=== PATIENT | female | born 1950 | race Caucasian/White ===

== ENCOUNTER 2019-05-24 00:21 | Outpatient (CLI) | payer OTHER, SELFPAY ==
--- NOTE | 2019-05-24 11:53 | DI.MAMMO_ITS ---
EXAM: MG MAMMO SCREENING CLINICAL HISTORY: SCREENING, Z12.39, FAMILY H/O BREAST CA. TECHNIQUE: Bilateral full field digital CC and MLO mammographic images were obtained with 3D tomosy nthesis and utilizing computer aided detection (CAD). COMPARISON: Comparison is made with previous examinations. FINDINGS: The breast tissue is of moderate radiodensity. There is no evidence of a dominant mass or suspicious calcification. There has been no significant interval change when compared with previous images. IMPRESSION: No evidence of malignancy, category 1, annual screening mammography is recommended. Breast density, c ategory B. BI-RADS Cat 1 - Negative. Breast Density - Category B - Scattered areas of fibroglandular density.
== END 2019-05-24 00:41 ==
PROVIDERS: PCP Nurse Practitioner Family; Visit Provider Nurse Practitioner Family
DX: Z12.31 Encounter for screening mammogram for malignant neoplasm of breast (principal); Z80.3 Family history of malignant neoplasm of breast
CPT/HCPCS: 77063; 77067

== ENCOUNTER 2019-05-25 12:41 | Outpatient (REF) | payer OTHER, SELFPAY ==
[2019-05-25 18:53] LABS: Anion Gap 7.5 mmol/L (3-11); BUN 19 mg/dL (7-18); CO2 29.5 mmol/L (21.0-32.0); CREATININE 0.96 mg/dL (0.55-1.02); Calcium 8.9 mg/dL (8.5-10.1); Chloride 97 mmol/L (98-107); Estimated GFR 57.46 (mL/min/1.73m2); Glucose 93 mg/dL (70-100); Potassium 4.8 mmol/L (3.5-5.1); Sodium 134 mmol/L (136-145)
== END 2019-05-25 13:01 ==
LOC: NCHCN 12:41
PROVIDERS: PCP Nurse Practitioner Family; Visit Provider Nurse Practitioner Family
DX: I10 Essential (primary) hypertension (principal)
CPT/HCPCS: 80048

== ENCOUNTER 2019-07-26 20:40 | Emergency (ER) | payer OTHER, SELFPAY ==
[2019-07-26 20:43] VITALS: BP 169/83; PULSE 99; RESP 18; TEMP 36.7; O2SAT 99
--- NOTE | 2019-07-26 20:45 | ED.GENADUL_ITS ---
Discharge Plan Disposition Patient Disposition: HOME Condition: Good Discharge Details Chief Complaint: Urinary Clinical Impression: UTI (urinary tract infection), uncomplicated Primary Care Provider: Arabella Gambino ED Provider: Boris Pate Bogue Meds and New Rx's Prescriptions: New nitrofurantoin macrocrystal 100 mg capsule 100 mg PO BID Qty: 7 RF: 0 phenazopyridine 100 mg tablet 100 mg PO TID PRN (Reason: dysuria) Qty: 3 RF: 0 Continued enalapril-hydrochlorothiazide 1 EACH tablet 1 tab PO DAILY RF: 0 ergocalciferol (vitamin D2) [Vitamin D2] 50,000 UNITS capsule 1 cap PO DIRECTED RF: 0 ibuprofen [Ibuprofen IB] 200 MG tablet 200 mg PO PRN PRNRF: 0 Discharge Instructions Instructions: Phenazopyridine (By mouth), Nitrofurantoin Combination (By mouth), Urinary Tract Infection in Women (ED) Additional Instructions: Take Pyridium for discomfort. Take Macrobid for treatment of UTI. Follow-up with primary care next week if still symptomatic. Return to emergency department if you develop high fever, mental status changes, back pain, abdominal pain or vomiting. Referrals: Arabella Gambino [Primary Care Provider] - Medical Decision Making Patient with urinary symptoms but no evidence of systemic infection. Urinalysis sent. Pyridium and Macrobid ordered. Patient will follow-up with primary care next week if still symptomatic. Return to emergency department for high fever, mental status changes, back pain, abdominal pain, vomiting. Lab Data Lab results reviewed: Yes I reviewed the patient's lab results. HPI General Mode of arrival: ambulatory . Date/Time Provider Initiated Documentation: 07/26/19 20:45 . Limitations to Documentation: no limitations . Information obtained by: patient, RN notes reviewed and old records reviewed . HPI Narrative: Patient presents to ED with urinary symptoms since last evening. She has dysuria, urgency, slight headache. She denies fever, chills, back pain, abdominal pain, vomiting. She has had urinary tract infections in the past although they are not frequent. She was hoping to wait until tomorrow to see primary care but it is much too uncomfortable tonight. Related Data Home Medications Medication Instructions Recorded Confirmed enalapril-hydrochlorothiazide 1 tab PO DAILY 03/30/15 07/26/19 ergocalciferol (vitamin D2) 1 cap PO DIRECTED 03/30/15 07/26/19 [Vitamin D2] ibuprofen [Ibuprofen IB] 200 mg PO PRN PRN 03/23/17 07/26/19 nitrofurantoin macrocrystal 100 mg PO BID #7 cap 07/26/19 phenazopyridine 100 mg PO TID PRN #3 tab 07/26/19 Previous Rx's Medication Instructions Recorded nitrofurantoin macrocrystal 100 mg PO BID #7 cap 07/26/19 phenazopyridine 100 mg PO TID PRN #3 tab 07/26/19 Allergies Allergy/AdvReac Type Severity Reaction Status Date / Time Sulfa (Sulfonamide Allergy Intermediate Swelling/Ed Unverified 07/26/19 20:50 Antibiotics) lou enviornmental Allergy Mild stuffiness,itchy Uncoded 07/26/19 20:50 eyes Review of Systems Constitutional Constitutional: Denies chills and Denies fever(s) Gastrointestinal Gastrointestinal: Denies abdominal pain, Denies nausea and Denies vomiting Genitourinary Genitourinary: Denies hematuria, Reports urinary frequency, Reports dysuria, Denies pelvic pain, Denies flank pain and Reports urinary urgency Musculoskeletal Musculoskeletal: Denies back pain [facility] Medical History HTN (hypertension) (Chronic) Hypoparathyroidism (Chronic) Surgical History S/P hysterectomy (Acute) Social History Smoking/Tobacco Use Status: Never Alcohol Intake: never Drug use: Never Substance use type: does not use Do you feel safe at home: Yes Do you feel safe in your relationship?: Yes Exam Narrative Exam Narrative: Vitals: Afebrile. Heart rate and blood pressure elevated. Room air pulse ox normal. Const: WDWN elderly female in NAD. HEENT: NC/AT. Normal facial exam. Eyes: Normal conjunctiva and sclera. Neck: Supple. Trachea midline. Lungs: Normal respiratory effort. GI: Soft. NT/ND. No guarding or rebound. Back: No CVAT. Neuro: A+O x 3. Grossly in tact.
[2019-07-26] MEDS: Phenazopyridine 200 MG TAB PO (21:03)
[2019-07-26] MEDS: MacroBID 100 MG CAP PO (21:03)
[2019-07-26 21:07] LABS: Bilirubin Negative (Negative); Blood Moderate (Negative); Glucose Negative (Negative); Ketones Negative (Negative); Leukocyte Esterase Moderate (Negative); Nitrite Negative (Negative); Specific Gravity 1.015 (1.005-1.025); Urobilinogen 0.2 EU/dL (Up TO 0.2)
[2019-07-26 21:09] LABS: Clarity Sl Cloudy (Clear)
[2019-07-26 21:21] LABS: Bacteria Moderate HPF (Negative); C & S Indicated? Yes; Crystals Negative HPF (Negative); Epithelial Cells Moderate HPF (Negative); Mucus Negative (Negative); Other Cells Few Transitional (Negative); WBC >50 HPF (0-5)
[2019-07-26] MEDS: MacroBID 100 MG CAP, 2 CAPS/BTL PO (21:26)
[2019-07-26] MEDS: Phenazopyridine 100 MG TAB, 2 TABS/BTL PO (21:26)
== END 2019-07-26 21:25 | disposition home or self-care (01) ==
PROVIDERS: Emergency Provider Emergency Medicine; PCP Nurse Practitioner Family
DX: N39.0 Urinary tract infection, site not specified (principal); B96.20 Unspecified Escherichia coli [E. coli] as the cause of diseases classified elsewhere; I10 Essential (primary) hypertension
CPT/HCPCS: 87077; 99283; 81003; 81015; 87086; 87186

== ENCOUNTER 2020-04-30 23:51 | Emergency (ER) | payer OTHER, SELFPAY ==
[2020-04-30 23:56] VITALS: BP 174/86; PULSE 94; RESP 20; TEMP 36.5; O2SAT 97
[2020-04-30 23:59] LABS: Bilirubin Negative (Negative); Blood Large (Negative); Clarity Sl Cloudy (Clear); Glucose Negative (Negative); Ketones Negative (Negative); Leukocyte Esterase Large (Negative); Nitrite Negative (Negative); Specific Gravity 1.015 (1.005-1.025); Urobilinogen 0.2 EU/dL (Up TO 0.2); pH 7.5 (5-8)
[2020-05-01 00:02] LABS: Bacteria Rare HPF (Negative); C & S Indicated? C&S Done As Ordered; Casts Negative LPF (Negative); Crystals Negative HPF (Negative); Epithelial Cells Few HPF (Negative); Mucus Negative (Negative); WBC 20-50 HPF (0-5)
--- NOTE | 2020-05-01 00:06 | ED.GENADUL_ITS ---
Discharge Plan Disposition Patient Disposition: HOME Condition: Stable Discharge Details Chief Complaint: Urinary Clinical Impression: Cystitis Primary Care Provider: Arabella Gambino ED Provider: Francisco Spring Home Meds and New Rx's Prescriptions: New nitrofurantoin monohyd/m-cryst [Macrobid] 100 mg capsule 100 mg PO Q12H 5 Days Qty: 10 RF: 0 Continued enalapril-hydrochlorothiazide 1 EACH tablet 1 tab PO DAILY RF: 0 ergocalciferol (vitamin D2) [Vitamin D2] 50,000 UNITS capsule 1 cap PO DIRECTED RF: 0 ibuprofen [Ibuprofen IB] 200 MG tablet 200 mg PO PRN PRNRF: 0 phenazopyridine 100 mg tablet 100 mg PO TID PRN (Reason: dysuria) Qty: 3 RF: 0 Discontinued nitrofurantoin macrocrystal 100 mg capsule 100 mg PO BID Qty: 7 RF: 0 Discharge Instructions Instructions: Urinary Tract Infection in Women (ED) Additional Instructions: if symptoms aren't improving in 3 days follow up with your primary care provider if you have worsening back pain, fevers or feel more ill return to the emergency department Medical Decision Making 69 yo female comes in with complaints of having a bladder infection. She has had uti's in the past and was here in july with culture at that time that grew e coli. She states this feels similar and started today with burning urination. Denies fevers, back pain, no vomit or abdominal pain. No symptoms or findings on examto suggest pyelo, appears well systemically sitting on side of the stretcher reading a book prior to me entering the room. Symptoms consistent with uti as is UA. Will start macrobid and advised if not improving to f/u with pcp and return precautions given Differential Diagnosis Differential Diagnosis: cystitis, uti HPI General Mode of arrival: ambulatory . Date/Time Provider Initiated Documentation: 04/30/20 23:53 . Limitations to Documentation: no limitations . Information obtained by: patient . History of Present Illness 69 year old F presents to the emergency department with the chief complaint of burning urination, described as moderate, Patient started experiencing this day(s) (1) and it has been constant. No relieving factors improve symptom(s), No exacerbating factors reported . Patient notes no other symptoms.. Patient did receive the following treatments prior to arrival, none Related Data Home Medications Medication Instructions Recorded Confirmed enalapril-hydrochlorothiazide 1 tab PO DAILY 03/30/15 07/26/19 ergocalciferol (vitamin D2) 1 cap PO DIRECTED 03/30/15 07/26/19 [Vitamin D2] ibuprofen [Ibuprofen IB] 200 mg PO PRN PRN 03/23/17 07/26/19 phenazopyridine 100 mg PO TID PRN #3 tab 07/26/19 nitrofurantoin monohyd/m-cryst 100 mg PO Q12H 5 Days #10 cap 05/01/20 [Macrobid] Previous Rx's Medication Instructions Recorded phenazopyridine 100 mg PO TID PRN #3 tab 07/26/19 nitrofurantoin monohyd/m-cryst 100 mg PO Q12H 5 Days #10 cap 05/01/20 [Macrobid] Allergies Allergy/AdvReac Type Severity Reaction Status Date / Time Sulfa (Sulfonamide Allergy Intermediate Swelling/Ed Unverified 07/26/19 20:50 Antibiotics) lou enviornmental Allergy Mild stuffiness,itchy Uncoded 07/26/19 20:50 eyes General Stated Complaint: Urinary ARTHUR: 4 Review of Systems All systems reviewed & are unremarkable except as noted in HPI and below Constitutional Constitutional: Denies chills, Denies fever(s) and Denies weakness Cardiovascular Cardiovascular: Denies chest pain and Denies dyspnea Respiratory Respiratory: Denies cough and Denies dyspnea Gastrointestinal Gastrointestinal: Denies abdominal pain, Denies nausea and Denies vomiting Musculoskeletal Musculoskeletal: Denies joint swelling Neurologic Neurologic: Denies weakness [facility] Medical History (Updated 05/01/20 @ 00:09 by Francisco Spring MD) HTN (hypertension) (Chronic) Hypoparathyroidism (Chronic) Surgical History S/P hysterectomy (Acute) Social History Smoking/Tobacco Use Status: Never Alcohol Intake: never Drug use: Never Substance use type: does not use Do you feel safe at home: Yes Do you feel safe in your relationship?: Yes Exam Const General: no acute distress Orientation: alert HENMT Head: normal to inspection Ears: external ears normal General nose exam: external nose normal Mouth: moist mucous membranes Eyes General: appearance normal, both eyes and all related structures Neck Neck: normal visual inspection Resp Effort & Inspection: normal respiratory effort and able to speak in complete sentences Cardio Rate: regular rate Back/Spine/Pelvis Back: no CVA tenderness Skin General skin exam: no rashes or lesions noted Neuro General: patient alert and patient oriented x3 Extrem General: normal to inspection Psych Mental Status: mental status grossly normal Course Vital Signs Vital signs: Vital Signs Temperature 36.5 C 04/30/20 23:56 Pulse 94 H 04/30/20 23:56 Respiratory Rate 20 04/30/20 23:56 Blood Pressure 174/86 H 04/30/20 23:56 Pulse Oximetry 97 04/30/20 23:56 Temperature 36.5 C 04/30/20 23:56 Temperature Source Tympanic 04/30/20 23:56 Pulse 94 H 04/30/20 23:56 Respiratory Rate 20 04/30/20 23:56 Respiratory Effort 04/30/20 23:58 Blood Pressure 174/86 H 04/30/20 23:56 Pulse Oximetry 97 04/30/20 23:56 Oxygen Delivery Method Room Air 04/30/20 23:56 Oxygen Flow Rate 0 04/30/20 23:56 Pain Level 5 04/30/20 23:58 Lab/Test Results Lab/Test Results: 04/30/20 23:55 Urine - Voided Urine Culture - Pending Laboratory Tests Range/Units 04/30/20 23:55 Urine Color (Yellow) Yellow Urine Clarity (Clear) Sl cloudy Urine pH (5-8) 7.5 Ur Specific [place] (1.005-1.025) 1.015 Urine Protein (Negative) mg/dL 30 H Urine Ketones (Negative) mg/dL Negative Urine Blood (Negative) Large H Urine Nitrite (Negative) Negative Urine Bilirubin (Negative) Negative Urine Urobilinogen (Up TO 0.2) EU/dL 0.2 Ur Leukocyte Esterase (Negative) Large H Urine RBC (0-2) HPF 5-10 H Urine WBC (0-5) HPF 20-50 H Ur Epithelial Cells (Negative) HPF Few Urine Crystals (Negative) HPF Negative Urine Bacteria (Negative) HPF Rare Urine Casts (Negative) LPF Negative Urine Mucus (Negative) Negative Ur Culture Indicated? C&s done as ordered Urine Glucose (Negative) mg/dL Negative
[2020-05-01] MEDS: MacroBID 100 MG CAP PO (00:10)
== END 2020-05-01 00:10 | disposition home or self-care (01) ==
PROVIDERS: Emergency Provider Emergency Medicine; PCP Nurse Practitioner Family
DX: N30.00 Acute cystitis without hematuria (principal); Z87.440 Personal history of urinary (tract) infections; I10 Essential (primary) hypertension
CPT/HCPCS: 99283; 81003; 81015; 87086

== ENCOUNTER 2020-06-24 08:58 | Outpatient (REF) | payer OTHER, SELFPAY | END 2020-06-24 09:18 | LOC: NCHCN 08:58 | PROVIDERS: PCP Nurse Practitioner Family; Visit Provider Nurse Practitioner Family | DX: N39.0 Urinary tract infection, site not specified (principal); R30.0 Dysuria | CPT/HCPCS: 87077; 87086; 87186 ==

== ENCOUNTER 2020-07-16 01:47 | Outpatient (CLI) | payer OTHER, SELFPAY ==
--- NOTE | 2020-07-16 08:00 | DI.MAMMO_ITS ---
EXAM: MG MAMMO SCREENING CLINICAL HISTORY: SCREENING,Z12.39 TECHNIQUE: Bilateral full field digital CC and MLO mammographic images were obtained with 3D tomosyn thesis and utilizing computer aided detection (CAD). COMPARISON: Available for comparison. FINDINGS: Masses/Architectural Distortion: None seen. Microcalcifications: No suspicious pleomorphic-type are seen. Skin Thickening/Nipple Retraction: None. IMPRESSION: 1. No significant interval change with no specific features of malignancy noted. 2. Unless there is more urgent need, screening mammography is recommended, as per [employer] guidelines. BI-RADS Category 1 - Negative Breast Density - Category B - Scattered areas of fibroglandular density A negative radiographic report should not delay biopsy if a dominant or clinically suspicious mass is present. Up to ten percent of cancers are not identified on mammography. A negative report may reinforce clinical impression. Adenosis and dense breasts may obscure an underlying neoplasm. False positive reports average 6 to 10%. Patient will receive a letter notifying them of these results.
== END 2020-07-16 02:07 ==
PROVIDERS: PCP Nurse Practitioner Family; Visit Provider Nurse Practitioner Family
DX: Z12.31 Encounter for screening mammogram for malignant neoplasm of breast (principal)
CPT/HCPCS: 77063; 77067

== ENCOUNTER 2020-08-26 15:14 | Outpatient (CLI) | payer OTHER, SELFPAY ==
[2020-08-26 15:29] LABS: Bilirubin Negative (Negative); Blood Trace-intact (Negative); Clarity Sl Cloudy (Clear); Glucose Negative (Negative); Ketones Negative (Negative); Leukocyte Esterase Moderate (Negative); Nitrite Positive (Negative); Specific Gravity 1.015 (1.005-1.025); Urobilinogen 0.2 EU/dL (Up TO 0.2); pH 6.5 (5-8)
[2020-08-26 15:52] LABS: Bacteria Packed HPF (Negative); C & S Indicated? Yes; Crystals Negative HPF (Negative); Epithelial Cells Many HPF (Negative); Mucus Negative (Negative); Other Cells Mod Transitional (Negative); WBC >50 HPF (0-5)
== END 2020-08-26 15:34 ==
PROVIDERS: Nurse Practitioner Gerontology; PCP Nurse Practitioner Family; Visit Provider Nurse Practitioner Family
DX: R30.0 Dysuria (principal); R10.2 Pelvic and perineal pain
CPT/HCPCS: 87077; 81003; 81015; 87086; 87186

== ENCOUNTER 2020-09-12 13:21 | Outpatient (CLI) | payer OTHER, SELFPAY ==
[2020-09-12 15:15] LABS: Clarity Color Interference (Clear)
[2020-09-12 15:18] LABS: Bilirubin Color Interference (Negative); Blood Color Interference (Negative); Glucose Color Interference mg/dL (Negative); Ketones Color Interference mg/dL (Negative); Leukocyte Esterase Color Interference (Negative); Nitrite Color Interference (Negative); Urobilinogen Color Interference EU/dL (Up TO 0.2)
[2020-09-12 15:19] LABS: Epithelial Cells Moderate HPF (Negative); Other Cells Few Transitional (Negative); WBC >50 HPF (0-5)
[2020-09-12 15:20] LABS: Bacteria Few HPF (Negative); C & S Indicated? C&S Done As Ordered; Casts Negative LPF (Negative); Crystals Negative HPF (Negative); Mucus Negative (Negative)
== END 2020-09-12 13:41 ==
PROVIDERS: PCP Nurse Practitioner Family; Visit Provider Nurse Practitioner Gerontology
DX: N39.0 Urinary tract infection, site not specified (principal)
CPT/HCPCS: 81003; 81015; 87086

== ENCOUNTER 2020-09-27 10:55 | Emergency (ER) | payer OTHER, SELFPAY ==
--- NOTE | 2020-09-27 10:58 | ED.GENADUL_ITS ---
Discharge Plan Disposition Patient Disposition: HOME Condition: Stable Discharge Details Clinical Impression: UTI (urinary tract infection), MADHAVI (acute kidney injury), Hyponatremia Primary Care Provider: Arabella Gambino ED Provider: Irma Hernandez Home Meds and New Rx's Prescriptions: New cephalexin [Keflex] 500 mg capsule 500 mg PO QID 9 Days Qty: 36 RF: 0 Continued ascorbic acid (vitamin C) 500 mg capsule PO RF: 0 estradiol [Estrace] 0.01 % (0.1 mg/gram) cream 1 g vaginal QWEEK Qty: 42.5 RF: 3 eszopiclone [Lunesta] 3 mg tablet 3 mg PO QHS PRNRF: 0 loratadine-pseudoephedrine [Claritin-D 24 Hour] 10-240 mg tablet extended release 24 hr 1 tab PO DAILY RF: 0 cranberry extract [Cranberry Concentrate] 500 mg capsule 500 mg PO DAILY RF: 0 echinacea purpurea extract [echinacea] 125 mg tablet 250 mg PO DAILY RF: 0 multivitamin Tablet 1 tab PO DAILY RF: 0 cinnamon bark 500 mg capsule 1,000 mg PO DAILY RF: 0 nitrofurantoin macrocrystal 100 mg capsule 100 mg PO BID Qty: 14 RF: 0 enalapril-hydrochlorothiazide 1 EACH tablet 1 tab PO DAILY RF: 0 ergocalciferol (vitamin D2) [Vitamin D2] 50,000 UNITS capsule 1 cap PO DIRECTED RF: 0 ibuprofen [Ibuprofen IB] 200 MG tablet 200 mg PO PRN PRNRF: 0 Discharge Instructions Instructions: Urinary Tract Infection in Women (ED), Hyponatremia (ED) Additional Instructions: History and exam are most consistent with urinary tract infection with concern for pyelonephritis. Please encourage water intake. Please take the antibiotics as prescribed. The next dose will be due tomorrow morning. Even if symptoms improve, please take the entire course. Please contact your primary care provider Tuesday morning schedule close follow-up appointment this week as well has your kidney function rechecked Tuesday or Tuesday. If you develop fevers, inability stay hydrated, increased pain or other new/worsening symptoms please seek care urgently once again. You may continue Tylenol or ibuprofen as needed to help with discomfort. May continue with Pyridium to help with symptomatic management. Referrals: Arabella Gambino [Primary Care Provider] - Medical Decision Making Patient is a pleasant 70-year-old female presenting today with chief complaint of dysuria. States that she began having recurrent UTI symptoms approximately 4 days ago. Reports dysuria, increased frequency and urgency. Has been using Pyridium which has helped mildly with symptomatic management. However, last night she began having some left-sided flank pain. Also reports that since last night she has been having some intermittent chills. Subjective fever. Diminished appetite. No nausea or vomiting. No change in bowel habit. Also notes a fullness in her vaginal vault which she states has been there for the past 1 year associated with a sling repositioning. Patient has been working on improving this with the help of urology. She reports she has been doing her Kegel, digital manipulation of this. Patient uses estradiol twice weekly. Denies any vaginal pain or vaginal discharge. She has been being followed by urology for recurrent urinary tract infections. No antibiotics recently. On exam, patient appears nontoxic. She is hypertensive with a blood pressure 162/77. This is not unusual for the patient. Patient is on antihypertensives and states that she takes this at night. She is tachycardic with a heart rate of 121. She has no CVA tenderness on exam but states that this is the area where she has some discomfort last night. Abdomen is benign. Concern at this point for UTI likely pyelonephritis. Patient with tachycardia, plan to obtain labs and hydrate the patient. Discussed this plan with her and she is in agreement. Will give Tylenol to help with her discomfort. Urinalysis concerning for positive nitrite, large leukocyte esterase and moderate bacteria. This has reflex to culture. Will give patient a dose of ceftriaxone. I did review the previous culture and sensitivities. Labs reviewed. Leukocytosis with a white count of 11.56. Lactate slightly elevated at 1.5. Sodium 130, she has been low historically. Her BUN is elevated 25 and creatinine is elevated at 1.23. Her baseline creatinine is around 0.9. She has not had history of kidney stones historically. She is not having any continued pain and the pain last night sounded to be fairly mild, do not believe that she has kidney stone at this time. Patient is receiving her hydration, antibiotics. We will continue to monitor. Patient heart rate is now in the 90s. Her blood pressures improved with systolic in the 130s. Patient continues to appear nontoxic. She had discussed disposition at length. She will defer outpatient management I do feel that the appropriate presentation is not appear septic. We will continue her on antibiotics. We will transition her to oral Keflex. I encouraged water intake. I doubt that she has her kidney function rechecked Tuesday or Tuesday by her primary care. She will contact her primary care on Tuesday to schedule follow-up treatment. Strict return precautions were discussed. All questions and concerns were addressed and she is agreement this plan. HPI General Mode of arrival: ambulatory . Date/Time Provider Initiated Documentation: 09/27/20 10:55 . Limitations to Documentation: no limitations . Information obtained by: patient and RN notes reviewed . History of Present Illness 70 year old F presents to the emergency department with the chief complaint of concern for UTI, described as moderate, with intensity rated at 7. Quality is described as burning, and is localized to the genitals. Patient reports radiation to back (improved, had back pain yesterday). Patient started experiencing this day(s) and it has been constant. No relieving factors improve symptom(s), No exacerbating factors reported . Patient notes fever/chills (started having chills last night and into today) and loss of appetite; denies chest pain, diaphoresis, nausea/vomiting and shortness of breath. Patient did receive the following treatments prior to arrival, none Related Data Home Medications Medication Instructions Recorded Confirmed enalapril-hydrochlorothiazide 1 tab PO DAILY 03/30/15 09/27/20 ergocalciferol (vitamin D2) 1 cap PO DIRECTED 03/30/15 09/27/20 [Vitamin D2] ibuprofen [Ibuprofen IB] 200 mg PO PRN PRN 03/23/17 09/27/20 cinnamon bark 500 mg capsule 1,000 mg PO DAILY cap 06/26/20 09/27/20 cranberry extract 500 mg capsule 500 mg PO DAILY cap 06/26/20 09/27/20 echinacea purpurea extract 125 mg 250 mg PO DAILY tab 06/26/20 09/27/20 tablet eszopiclone 3 mg tablet 3 mg PO QHS PRN tab 06/26/20 09/27/20 loratadine-pseudoephedrine ER 10 1 tab PO DAILY 06/26/20 09/27/20 mg-240 mg tablet,extended [id number] multivitamin 1 tab PO DAILY 06/26/20 09/27/20 ascorbic acid (vitamin C) 500 mg mg PO 08/04/20 08/05/20 capsule estradiol 1 g VAGINAL QWEEK #42.5 g 08/05/20 09/27/20 nitrofurantoin macrocrystal 100 mg 100 mg PO BID #14 cap 08/28/20 09/27/20 capsule cephalexin [Keflex] 500 mg PO QID 9 Days #36 cap 09/27/20 Previous Rx's Medication Instructions Recorded estradiol 1 g VAGINAL QWEEK #42.5 g 08/05/20 nitrofurantoin macrocrystal 100 mg 100 mg PO BID #14 cap 08/28/20 capsule cephalexin [Keflex] 500 mg PO QID 9 Days #36 cap 09/27/20 Allergies Allergy/AdvReac Type Severity Reaction Status Date / Time Sulfa (Sulfonamide Allergy Intermediate Swelling/Ed Unverified 09/27/20 11:05 Antibiotics) lou enviornmental Allergy Mild stuffiness,itchy Uncoded 09/27/20 11:05 eyes General ARTHUR: 4 Review of Systems Constitutional Constitutional: Reports as per HPI, Reports chills, Reports fatigue, Reports fever(s) (subjective only), Denies headache(s) and Reports poor appetite ENT Ears, Nose, Mouth, and Throat: Denies headache(s) Cardiovascular Cardiovascular: Reports as per HPI, Denies chest pain and Denies dyspnea Respiratory Respiratory: Reports as per HPI, Denies cough and Denies dyspnea Gastrointestinal Gastrointestinal: Reports as per HPI Genitourinary Genitourinary: Reports as per HPI Musculoskeletal Musculoskeletal: Reports as per HPI Neurologic Neurologic: Denies headache(s) Endocrine Endocrine: Reports fatigue [facility] Medical History Dysuria Eczema HTN (hypertension) Hypoparathyroidism Insomnia Seborrheic keratosis Urinary tract infection Surgical History S/P hysterectomy Social History Smoking/Tobacco Use Status: Never Smoking risk assessment performed?: Yes Alcohol Intake: never Drug use: Never Substance use type: does not use Do you feel safe at home: Yes Do you feel safe in your relationship?: Yes Exam Const General: cooperative, healthy appearing, comfortable, no acute distress and well developed Nutritional Appearance: average body habitus and well nourished Orientation: alert and awake HENMT Mouth: moist mucous membranes Resp Effort & Inspection: normal respiratory effort and no respiratory distress Auscultation: clear to auscultation bilaterally, no rales, no rhonchi and no wheezes Cardio Rate: regular rate Rhythm: regular rhythm Heart Sounds: S1 normal and S2 normal GI Inspection: normal to inspection, no edema and non-distended Palpation: soft, no hepatosplenomegaly, no guarding, no hernias, no pulsatile masses and nontender Percussion: normal to percussion Auscultation: normal bowel sounds Back/Spine/Pelvis Back: no CVA tenderness Skin General skin exam: no rashes or lesions noted Neuro General: patient alert and patient awake Cognition: normal cognition Speech: speech normal Gait: normal gait Psych Appearance: grossly normal and well kempt Mental Status: mental status grossly normal Speech and Movement: speech and movement normal
[2020-09-27 11:00] VITALS: BP 162/77; PULSE 121; RESP 16; TEMP 36.5; O2SAT 94
[2020-09-27 11:04] LABS: Bilirubin Negative (Negative); Blood Small (Negative); Clarity Cloudy (Clear); Glucose Negative (Negative); Ketones Negative (Negative); Leukocyte Esterase Large (Negative); Nitrite Positive (Negative); Urobilinogen 0.2 EU/dL (Up TO 0.2); pH 7.5 (5-8)
[2020-09-27 11:25] LABS: Bacteria Moderate HPF (Negative); C & S Indicated? Yes; Casts Negative LPF (Negative); Crystals Negative HPF (Negative); Epithelial Cells Few HPF (Negative); Mucus Negative (Negative); RBC 0-2 HPF (0-2); WBC >50 HPF (0-5)
[2020-09-27] MEDS: Normal Saline Flush 10 ML SYR IVP (11:25)
[2020-09-27] MEDS: Normal Saline 1,000 ML 1000 ML IV (11:30)
[2020-09-27 11:31] LABS: Abs Immature Grans 0.05 10^3/uL (0.0-0.06); Absolute Basophil Count 0.03 10^3/uL (0.0-0.2); Absolute Eosinophil Count 0.05 10^3/uL (0.0-0.7); Absolute Lymphocyte Count 0.42 10^3/uL (1.2-3.4); Absolute Monocyte Count 1.05 10^3/uL (0.1-0.8); Absolute Neutrophil Count 9.96 10^3/uL (1.2-6.7); Basophils % 0.3; Eosinophils % 0.4; HCT 36.3 % (36.0-46.0); HGB 12.3 g/dL (11.2-15.7); Immature Grans % 0.4; Lactate 1.5 mmol/L (0.6-1.4); Lymphocytes % 3.6; MCH 30.8 pg (27.0-33.0); MCHC 33.9 % (32.0-36.0); MCV 90.8 fL (80-95); MPV 8.2 fL (8.0-11.0); Monocytes % 9.1; Neutrophils % 86.2; Nucleated RBC 0 %; Platelet Count 298 10^3/uL (130-400); RDW 12.5 % (11.7-14.6); RDW-SD 41.6 fL; WBC 11.56 10^3/uL (4.4-10.8)
[2020-09-27] MEDS: Acetaminophen 500 MG TAB 1000 MG PO (11:34)
[2020-09-27 11:47] LABS: ALT 25 U/L (14-59); AST 18 U/L (15-37); Albumin 3.6 g/dL (3.4-5.0); Alkaline Phosphatase 114 U/L (46-116); Anion Gap 8.1 mmol/L (3-11); BUN 25 mg/dL (7-18); Bilirubin, Total 0.6 mg/dL (0.2-1.0); CO2 27.9 mmol/L (21.0-32.0); CREATININE 1.23 mg/dL (0.55-1.02); Calcium 8.6 mg/dL (8.5-10.1); Chloride 94 mmol/L (98-107); Estimated GFR 42.92 (mL/min/1.73m2); Glucose 124 mg/dL (74-106); Potassium 3.9 mmol/L (3.5-5.1); Sodium 130 mmol/L (136-145); Total Protein 7.9 g/dL (6.4-8.2)
[2020-09-27] MEDS: cefTRIAXone 1 GM/50 ML BAG IVPB (11:59)
[2020-09-27 12:49] VITALS: BP 135/56; PULSE 98; RESP 16; TEMP 36.5; O2SAT 94
== END 2020-09-27 12:40 | disposition home or self-care (01) ==
PROVIDERS: Emergency Provider Physician Assistant; PCP Nurse Practitioner Family
DX: N39.0 Urinary tract infection, site not specified (principal); N17.9 Acute kidney failure, unspecified; B96.20 Unspecified Escherichia coli [E. coli] as the cause of diseases classified elsewhere; E87.1 Hypo-osmolality and hyponatremia; I10 Essential (primary) hypertension
CPT/HCPCS: 36415; 80053; 87077; 96361; 96365; 99284; 81003; 81015; 83605; 85025; 87086; 87186; J0696

== ENCOUNTER 2020-09-30 15:27 | Outpatient (REF) | payer OTHER, SELFPAY ==
[2020-09-30 15:01] LABS: Anion Gap 8.5 mmol/L (3-11); BUN 20 mg/dL (7-18); CO2 26.5 mmol/L (21.0-32.0); CREATININE 0.91 mg/dL (0.55-1.02); Calcium 8.6 mg/dL (8.5-10.1); Chloride 94 mmol/L (98-107); Glucose 115 mg/dL (74-106); Potassium 3.5 mmol/L (3.5-5.1); Sodium 129 mmol/L (136-145)
== END 2020-09-30 15:47 ==
LOC: NCHCN 15:27
PROVIDERS: PCP Nurse Practitioner Family; Visit Provider Nurse Practitioner Family
DX: I10 Essential (primary) hypertension (principal); R30.0 Dysuria; N39.0 Urinary tract infection, site not specified
CPT/HCPCS: 80048

== ENCOUNTER 2020-12-12 07:40 | Outpatient (REF) | payer OTHER, SELFPAY ==
[2020-12-12 15:08] LABS: HCT 37.8 % (36.0-46.0); HGB 12.6 g/dL (11.2-15.7); MCH 30.4 pg (27.0-33.0); MCHC 33.3 % (32.0-36.0); MCV 91.3 fL (80-95); MPV 9.2 fL (8.0-11.0); Platelet Count 347 10^3/uL (130-400); RBC 4.14 10^6/uL (3.93-5.22); RDW 12.9 % (11.7-14.6); RDW-SD 42.6 fL; WBC 5.06 10^3/uL (4.4-10.8)
[2020-12-12 15:28] LABS: BUN 21 mg/dL (7-18); CREATININE 0.9 mg/dL (0.55-1.02); Calcium 9.1 mg/dL (8.5-10.1); Calculated LDL 95 mg/dL (<100); Chloride 99 mmol/L (98-107); Cholesterol 187 mg/dL (<200); Glucose 96 mg/dL (74-106); HDL Cholesterol 69 mg/dL (40-60); Potassium 4.3 mmol/L (3.5-5.1); Sodium 137 mmol/L (136-145); Triglyceride 119 mg/dL (<150)
== END 2020-12-12 07:41 | disposition home or self-care (01) ==
LOC: NCHCN 07:40
PROVIDERS: PCP Nurse Practitioner Family; Visit Provider Nurse Practitioner Family
DX: E87.1 Hypo-osmolality and hyponatremia (principal); I10 Essential (primary) hypertension
CPT/HCPCS: 80048; 80061; 85027

== ENCOUNTER 2021-03-11 15:29 | Observation (INO) | payer OTHER, SELFPAY ==
[2021-03-11 15:34] VITALS: BP 171/69; PULSE 104; RESP 18; TEMP 37; O2SAT 98
--- NOTE | 2021-03-11 15:46 | ED.GENADUL_ITS ---
Discharge Plan Disposition Patient Disposition: [facility] INPATIENT Condition: Stable Discharge Details Clinical Impression: Acute diverticulitis, Fever Primary Care Provider: Arabella Gambino ED Provider: Nicci Jerome Home Meds and New Rx's Prescriptions: No Action ascorbic acid (vitamin C) 500 mg capsule PO RF: 0 estradiol [Estrace] 0.01 % (0.1 mg/gram) cream 1 g vaginal .twice a week Qty: 42.5 RF: 3 eszopiclone [Lunesta] 3 mg tablet 3 mg PO QHS PRNRF: 0 loratadine-pseudoephedrine [Claritin-D 24 Hour] 10-240 mg tablet extended release 24 hr 1 tab PO DAILY RF: 0 cranberry extract [Cranberry Concentrate] 500 mg capsule 500 mg PO DAILY RF: 0 echinacea purpurea extract [echinacea] 125 mg tablet 250 mg PO DAILY RF: 0 multivitamin Tablet 1 tab PO DAILY RF: 0 cinnamon bark 500 mg capsule 1,000 mg PO DAILY RF: 0 ergocalciferol (vitamin D2) [Vitamin D2] 50,000 UNITS capsule 1 cap PO DIRECTED RF: 0 enalapril-hydrochlorothiazide 5-12.5 mg tablet 1 tab PO DAILY RF: 0 ibuprofen [Ibuprofen IB] 200 MG tablet 200 mg PO PRN PRNRF: 0 Medical Decision Making 70yo F who presents to the ED w/ a c/o a decreased appetite for 1 week, left sided abdominal pain for 2 days and fever of 100 at home today. Heart rate 100s. Oral temp 101 here. She appears relatively comfortable and nontoxic. She does have left lower quadrant tenderness. Differential diagnosis includes diverticulitis, colitis, appendicitis, UTI, pyelonephritis. Will place an IV, bolus IV fluids, IV Tylenol, screening labs, urinalysis and CT abdomen and pelvis. Labs and imaging reviewed. White blood cell count 11. Lactate 1. Alk phos 132. Urinalysis notes 5-10 WBCs and RBCs. Urine culture sent. CT notes findings consistent with acute diverticulitis. Patient reassessed and she states she feels much better. Recheck temp 99.5. Patient states she would prefer to go home. Discussed with patient that considering her age and fever, would recommend that she be admitted to the hospital but she would prefer to go home. Case discussed with Dr. Morris who also agreed that patient would more likely benefit from admission but we could trial with PO augmentin with plan for follow-up in the surgery office tomorrow - It was discussed that potentially patient could fail outpatient treatment which could lead to or disability. Plan discussed with patient again in the room and she is now agreeable with plan for admission. Discussed with Dr. Morris who accepts patient for admission. Will start Cipro and Flagyl IV, normal saline at 100 cc/h, and clear liquid diet . Medical Records Medical records reviewed: Yes I reviewed the patient's medical records. Imaging Data Radiologic Study: Radiologist's impression: CT Abdomen And Pelvis With Contrast Exam date and time: 03/11/2021 4:14 PM Age: 70 years old Clinical indication: Patient HX: R/O diverticulitis, colitis, appendicitis. Llq pain pain, fever TECHNIQUE: Imaging protocol: Computed tomography of the abdomen and pelvis with contrast. Contrast material: OMNIPAQUE 350; Contrast volume: 100 ml; Contrast route: INTRAVENOUS (IV); COMPARISON: CR PELVIS AP 03/23/2017 2:05 PM FINDINGS: Mediastinal space: Small hiatal hernia. Liver: Normal. No mass. Gallbladder and bile ducts: Normal. No calcified stones. No ductal dilation. Pancreas: Normal. No ductal dilation. Spleen: Normal. No splenomegaly. Adrenal glands: Normal. No mass. Kidneys and ureters: There is mild left ureteral dilatation , most likely a consequence of inflammatory changes from the sigmoid diverticulitis. No evidence of obstructing renal stone. Stomach and bowel: Scattered diverticulosis throughout the large bowel. Diverticulosis and moderate to severe thickening of the entire sigmoid colon with surrounding mesenteric stranding compatible with acute diverticulitis. Appendix: No evidence of appendicitis. Intraperitoneal space: Unremarkable. No free air. No significant fluid collection. Vasculature: Moderate atherosclerotic calcifications of the abdominal aorta and iliac arteries. Lymph nodes: Several borderline sized aortocaval lymph nodes most likely reactive (series 4, image 38), largest measuring 8 mm. Urinary bladder: Unremarkable as visualized. Reproductive: There is a pessary in place. Bones/joints: Unremarkable. No acute fracture. Soft tissues: Unremarkable. IMPRESSION: 1. Diverticulosis and moderate to severe thickening of the entire sigmoid colon with surrounding mesenteric stranding compatible with acute diverticulitis. 2. Small hiatal hernia. 3. Several borderline sized aortocaval lymph nodes most likely reactive (series 4, image 38), largest measuring 8 mm. 4. There is mild left ureteral dilatation, most likely a consequence of inflammatory changes from the sigmoid diverticulitis. No evidence of obstructing renal stone. Lab Data Lab results reviewed: Yes I reviewed the patient's lab results. Labs: 03/11/21 15:49 Urine - Reflex from Ua Urine Culture - Pending 03/11/21 16:05 Blood Blood Culture - Pending 03/11/21 15:49 Blood Blood Culture - Pending Laboratory Tests Range/Units 03/11/21 03/11/21 03/11/21 15:49 15:49 15:49 WBC (4.4-10.8) 10^3/uL 11.49 H RBC (3.93-5.22) 10^6/uL 4.23 Hgb (11.2-15.7) g/dL 13.1 Hct (36.0-46.0) % 38.8 MCV (80-95) fL 91.7 MCH (27.0-33.0) pg 31.0 MCHC (32.0-36.0) % 33.8 RDW (11.7-14.6) % 11.9 Plt Count (130-400) 10^3/uL 389 MPV (8.0-11.0) fL 8.6 Immature Gran % 0.3 Neutrophils % 81.4 Lymphocytes % 10.0 Monocytes % 7.7 Eosinophils % 0.1 Basophils % 0.5 Nucleated RBC % % 0 Absolute Neutrophils (1.2-6.7) 10^3/uL 9.35 H Absolute Lymphocytes (1.2-3.4) 10^3/uL 1.15 L Absolute Monocytes (0.1-0.8) 10^3/uL 0.88 H Absolute Eosinophils (0.0-0.7) 10^3/uL 0.01 Absolute Basophils (0.0-0.2) 10^3/uL 0.06 VBG Lactate (0.6-1.4) mmol/L 1.0 Sodium (136-145) mmol/L 133 L Potassium (3.5-5.1) mmol/L 3.9 Chloride (98-107) mmol/L 97 L Carbon Dioxide (21.0-32.0) mmol/L 25.1 Anion Gap (3-11) mmol/L 10.9 BUN (7-18) mg/dL 18 Creatinine (0.55-1.02) mg/dL 0.9 Estimated GFR/1.73 m2 (mL/min/1.73m2) >= 60.00 Glucose (74-106) mg/dL 108 H Calcium (8.5-10.1) mg/dL 9.0 Total Bilirubin (0.2-1.0) mg/dL 0.3 AST (15-37) U/L 14 L ALT (14-59) U/L 26 Alkaline Phosphatase (46-116) U/L 132 H Total Protein (6.4-8.2) g/dL 8.3 H Albumin (3.4-5.0) g/dL 3.6 Urine Color (Yellow) Urine Clarity (Clear) Urine pH (5-8) Ur Specific [place] (1.005-1.025) Urine Protein (Negative) mg/dL Urine Ketones (Negative) mg/dL Urine Blood (Negative) Urine Nitrite (Negative) Urine Bilirubin (Negative) Urine Urobilinogen (Up TO 0.2) EU/dL Ur Leukocyte Esterase (Negative) Urine RBC (0-2) HPF Urine WBC (0-5) HPF Ur Epithelial Cells (Negative) HPF Urine Crystals (Negative) HPF Urine Bacteria (Negative) HPF Urine Casts (Negative) LPF Urine Mucus (Negative) Urine Other (Negative) Ur Culture Indicated? Urine Glucose (Negative) mg/dL COVID-19 Source Range/Units 03/11/21 03/11/21 15:49 17:40 WBC (4.4-10.8) 10^3/uL RBC (3.93-5.22) 10^6/uL Hgb (11.2-15.7) g/dL Hct (36.0-46.0) % MCV (80-95) fL MCH (27.0-33.0) pg MCHC (32.0-36.0) % RDW (11.7-14.6) % Plt Count (130-400) 10^3/uL MPV (8.0-11.0) fL Immature Gran % Neutrophils % Lymphocytes % Monocytes % Eosinophils % Basophils % Nucleated RBC % % Absolute Neutrophils (1.2-6.7) 10^3/uL Absolute Lymphocytes (1.2-3.4) 10^3/uL Absolute Monocytes (0.1-0.8) 10^3/uL Absolute Eosinophils (0.0-0.7) 10^3/uL Absolute Basophils (0.0-0.2) 10^3/uL VBG Lactate (0.6-1.4) mmol/L Sodium (136-145) mmol/L Potassium (3.5-5.1) mmol/L Chloride (98-107) mmol/L Carbon Dioxide (21.0-32.0) mmol/L Anion Gap (3-11) mmol/L BUN (7-18) mg/dL Creatinine (0.55-1.02) mg/dL Estimated GFR/1.73 m2 (mL/min/1.73m2) Glucose (74-106) mg/dL Calcium (8.5-10.1) mg/dL Total Bilirubin (0.2-1.0) mg/dL AST (15-37) U/L ALT (14-59) U/L Alkaline Phosphatase (46-116) U/L Total Protein (6.4-8.2) g/dL Albumin (3.4-5.0) g/dL Urine Color (Yellow) Yellow Urine Clarity (Clear) Clear Urine pH (5-8) 6.5 Ur Specific [place] (1.005-1.025) 1.020 Urine Protein (Negative) mg/dL Negative Urine Ketones (Negative) mg/dL Negative Urine Blood (Negative) Small H Urine Nitrite (Negative) Negative Urine Bilirubin (Negative) Negative Urine Urobilinogen (Up TO 0.2) EU/dL 0.2 Ur Leukocyte Esterase (Negative) Small H Urine RBC (0-2) HPF 5-10 H Urine WBC (0-5) HPF 5-10 Ur Epithelial Cells (Negative) HPF Negative Urine Crystals (Negative) HPF Negative Urine Bacteria (Negative) HPF Negative Urine Casts (Negative) LPF Negative Urine Mucus (Negative) Negative Urine Other (Negative) Few Renal Ur Culture Indicated? Yes Urine Glucose (Negative) mg/dL Negative COVID-19 Source Nasal/Nares HPI General Mode of arrival: ambulatory . Date/Time Provider Initiated Documentation: 03/11/21 15:44 . Limitations to Documentation: no limitations . Information obtained by: patient . HPI Narrative: Patient is a 70-year-old female who presents to the ED with complaint of decreased appetite for 1 week, left-sided abdominal pain for the past few days and temp of 101 at home today. Patient states the pain is intermittent and aching and worse with movement and walking. She has not taken any medication for pain today. She also admits to clear mucousy type stools mixed with brown stool for the past couple weeks. She states she has been told in the past with a colonoscopy that she has a history of diverticulosis. She states she had a pess[facility] months ago [facility] due to her urinary incontinence and states this is due to be changed soon. She denies any chest pain, shortness of breath, coughing, urinary symptoms, nausea or vomiting. Related Data Home Medications Medication Instructions Recorded Confirmed ergocalciferol (vitamin D2) 1 cap PO DIRECTED 03/30/15 03/11/21 [Vitamin D2] ibuprofen [Ibuprofen IB] 200 mg PO PRN PRN 03/23/17 03/11/21 cinnamon bark 500 mg capsule 1,000 mg PO DAILY cap 06/26/20 03/11/21 cranberry extract 500 mg capsule 500 mg PO DAILY cap 06/26/20 03/11/21 echinacea purpurea extract 125 mg 250 mg PO DAILY tab 06/26/20 03/11/21 tablet eszopiclone 3 mg tablet 3 mg PO QHS PRN tab 06/26/20 03/11/21 loratadine-pseudoephedrine ER 10 1 tab PO DAILY 06/26/20 03/11/21 mg-240 mg tablet,extended [id number] multivitamin 1 tab PO DAILY 06/26/20 03/11/21 ascorbic acid (vitamin C) 500 mg mg PO 08/04/20 11/05/20 capsule enalapril 5 mg-hydrochlorothiazide 1 tab PO DAILY 11/05/20 03/11/21 12.5 mg tablet estradiol 1 g VAGINAL .twice a week #42.5 g 11/05/20 03/11/21 Previous Rx's Medication Instructions Recorded estradiol 1 g VAGINAL .twice a week #42.5 g 11/05/20 Allergies Allergy/AdvReac Type Severity Reaction Status Date / Time Sulfa (Sulfonamide Allergy Intermediate Swelling/Ed Unverified 03/11/21 15:36 Antibiotics) lou enviornmental Allergy Mild stuffiness,itchy Uncoded 03/11/21 15:36 eyes General Stated Complaint: Abd Prob ARTHUR: 3 Review of Systems All systems reviewed & are unremarkable except as noted in HPI and below Constitutional Constitutional: Reports as per HPI, Denies chills and Reports fever(s) Eyes Eyes: Denies blurry vision ENT Ears, Nose, Mouth, and Throat: Denies dizziness, Denies sore throat and Denies throat swelling Cardiovascular Cardiovascular: Denies chest pain and Denies dyspnea Respiratory Respiratory: Denies cough and Denies dyspnea Gastrointestinal Gastrointestinal: Reports abdominal pain, Denies diarrhea and Denies vomiting Genitourinary Genitourinary: Denies hematuria and Denies dysuria Musculoskeletal Musculoskeletal: Denies back pain and Denies numbness Integumentary/Breasts Skin/Breast: Denies lesions and Denies rash Neurologic Neurologic: Denies dizziness, Denies localized weakness and Denies numbness Allergic/Immunologic Allergic/Immunologic: Denies throat swelling [facility] Medical History (Updated 03/11/21 @ 17:51 by Nicci Jerome DO) Dysuria Eczema HTN (hypertension) Hypoparathyroidism Insomnia Pessary maintenance Prolapse of female pelvic organs Recurrent urinary tract infection Seborrheic keratosis Urinary tract infection Surgical History S/P hysterectomy Social History Smoking/Tobacco Use Status: Never Smoking risk assessment performed?: Yes Alcohol Intake: never Drug use: Never Substance use type: does not use Do you feel safe at home: Yes Do you feel safe in your relationship?: Yes Exam Const General: cooperative and no acute distress [facility] Head: normal to inspection Face and sinus: normal facial exam Eyes General: appearance normal, both eyes and all related structures EOM: EOM intact bilaterally Neck Neck: normal visual inspection and No submandibular swelling Lymphatic: no lymphadenopathy noted Chest Chest: normal inspection of the chest and no tenderness Resp Effort & Inspection: normal respiratory effort and able to speak in complete sentences Auscultation: clear to auscultation bilaterally Cardio Rate: regular rate Rhythm: regular rhythm GI Inspection: normal to inspection Palpation: soft, not firm, not rigid and tender in the LLQ Auscultation: hypoactive bowel sounds Skin General skin exam: no rashes or lesions noted Neuro General: patient alert, patient awake and patient oriented x3 Cognition: normal cognition Speech: speech normal Motor: muscle tone normal throughout Sensory Exam: no sensory deficits noted Extrem General: normal to inspection, full ROM, capillary refill normal, no calf tenderness bilaterally and no edema Psych Appearance: grossly normal Mental Status: mental status grossly normal Speech and Movement: speech and movement normal Affect: normal affect Course Vital Signs Vital signs: Vital Signs Temperature 98.6 F 03/11/21 15:34 Pulse 104 H 03/11/21 15:34 Respiratory Rate 18 03/11/21 15:34 Blood Pressure 171/69 H 03/11/21 15:34 Pulse Oximetry 98 03/11/21 15:34 Temperature 98.6 F 03/11/21 15:34 Temperature Source Temporal Artery Scan 03/11/21 15:34 Pulse 104 H 03/11/21 15:34 Respiratory Rate 18 03/11/21 15:34 Blood Pressure 171/69 H 03/11/21 15:34 Blood Pressure Position Sitting 03/11/21 15:34 Pulse Oximetry 98 03/11/21 15:34 Oxygen Delivery Method Room Air 03/11/21 15:34 Oxygen Flow Rate 0 03/11/21 15:34 Pain Level 6 03/11/21 15:34
--- NOTE | 2021-03-11 16:00 | DI.CT_ITS ---
Exam(s) CT ABDOMEN PELVIS W EXAM: CT ABDOMEN PELVIS W CLINICAL HISTORY: LLQ abd pain, fever. TECHNIQUE: Imaging Protocol: Axial computed tomography images with coronal and sagittal reformatted images were created and reviewed CONTRAST MATERIAL: Intravenous: Omnipaque 350 Contrast volume:100 cc Oral: no COMPARISON: No exams were available for comparison FINDINGS: ABDOMEN: Lung Bases: Normal where visualized. Liver: Normal density. No measurable mass. Gallbladder and biliary tract: No radiodense calculus or dilation. Pancreas: Normal density, no abnormal calcifications or inflammatory process. Spleen: Normal. Kidneys: Normal size, contour and axis. No radiodense stones. No masses seen. Dilatation of the left ureter secondary to inflammatory changes related to adjacent diverticulitis. Adrenal glands: No masses seen. Abdominal Aorta: Abdominal portion non-dilated. Atherosclerotic calcification. Soft tissues: Small fatty containing umbilical hernia. PELVIS: Bladder: Symmetric distention, no gross wall thickening. Bowel: No obstruction. Diverticulosis, greatest in the sigmoid. Marked wall thickeningand surroundi ng inflammatory change, consistent with diverticulitis. Inflammation adjacent to left ureter, causin g mild dilatation. No abscess or free air. Bones: Degenerative changes greatest of the facet joints. Reproductive organs: Pessary. Status post hysterectomy. Lymph nodes: Mildly enlarged para-aortic lymph nodes, reactive. Impression: Sigmoid diverticulitis. Inflammation adjacent to the left ureter causing mild dilatation. RADIATION DOSE DELIVERED: 665.69mGy.cm Total DLP DATA REPOSITORY: All CT scans at this facility are submitted to the National Radiology Data Registry (NRDR) Dose Index Registry (DIR) with the [employer] ([employer]). RADIATION OPTIMIZATION: All CT scans at this facility use at least one of these dose optimization te chniques: automated exposure control; mA and/or kV adjustment per patient size (includes targeted exa ms where dose is matched to clinical indication); or iterative reconstruction.
[2021-03-11 16:12] LABS: Abs Immature Grans 0.04 10^3/uL (0.0-0.06); Absolute Basophil Count 0.06 10^3/uL (0.0-0.2); Absolute Eosinophil Count 0.01 10^3/uL (0.0-0.7); Absolute Lymphocyte Count 1.15 10^3/uL (1.2-3.4); Absolute Monocyte Count 0.88 10^3/uL (0.1-0.8); Absolute Neutrophil Count 9.35 10^3/uL (1.2-6.7); Basophils % 0.5; Eosinophils % 0.1; HCT 38.8 % (36.0-46.0); HGB 13.1 g/dL (11.2-15.7); Immature Grans % 0.3; MCHC 33.8 % (32.0-36.0); MCV 91.7 fL (80-95); MPV 8.6 fL (8.0-11.0); Monocytes % 7.7; Neutrophils % 81.4; Nucleated RBC 0 %; Platelet Count 389 10^3/uL (130-400); RBC 4.23 10^6/uL (3.93-5.22); RDW 11.9 % (11.7-14.6); RDW-SD 40.6 fL; WBC 11.49 10^3/uL (4.4-10.8)
[2021-03-11 16:18] LABS: ALT 26 U/L (14-59); AST 14 U/L (15-37); Albumin 3.6 g/dL (3.4-5.0); Alkaline Phosphatase 132 U/L (46-116); Anion Gap 10.9 mmol/L (3-11); BUN 18 mg/dL (7-18); Bilirubin, Total 0.3 mg/dL (0.2-1.0); CO2 25.1 mmol/L (21.0-32.0); CREATININE 0.9 mg/dL (0.55-1.02); Chloride 97 mmol/L (98-107); Glucose 108 mg/dL (74-106); Potassium 3.9 mmol/L (3.5-5.1); Sodium 133 mmol/L (136-145); Total Protein 8.3 g/dL (6.4-8.2)
[2021-03-11] MEDS: ACETAMINOPHEN 1,000 MG/100 ML BTL 400 MG IVPB (16:21)
[2021-03-11] MEDS: Normal Saline 1,000 ML 1000 ML IV (16:21)
[2021-03-11 16:23] LABS: Bilirubin Negative (Negative); Blood Small (Negative); Clarity Clear (Clear); Glucose Negative (Negative); Ketones Negative (Negative); Leukocyte Esterase Small (Negative); Nitrite Negative (Negative); Urobilinogen 0.2 EU/dL (Up TO 0.2); pH 6.5 (5-8)
[2021-03-11 16:34] LABS: Bacteria Negative HPF (Negative); C & S Indicated? Yes; Casts Negative LPF (Negative); Crystals Negative HPF (Negative); Epithelial Cells Negative HPF (Negative); Mucus Negative (Negative); Other Cells Few Renal (Negative)
[2021-03-11] MEDS: Normal Saline - Diluent 50 ML VIAL IV (17:00)
[2021-03-11] MEDS: Omnipaque 350 MG/ML 100 ML BTL IJ (17:02)
[2021-03-11] MEDS: Normal Saline Flush 10 ML SYR IVP (17:06)
--- NOTE | 2021-03-11 17:20 | DI.VRAD_ITS ---
PROCEDURE INFORMATION: Exam: CT Abdomen And Pelvis With Contrast Exam date and time: 03/11/2021 4:14 PM Age: 70 years old Clinical indication: Patient HX: R/O diverticulitis, colitis, appendicitis. Llq pain pain, fever TECHNIQUE: Imaging protocol: Computed tomography of the abdomen and pelvis with contrast. Contrast material: OMNIPAQUE 350; Contrast volume: 100 ml; Contrast route: INTRAVENOUS (IV); COMPARISON: CR PELVIS AP 03/23/2017 2:05 PM FINDINGS: Mediastinal space: Small hiatal hernia. Liver: Normal. No mass. Gallbladder and bile ducts: Normal. No calcified stones. No ductal dilation. Pancreas: Normal. No ductal dilation. Spleen: Normal. No splenomegaly. Adrenal glands: Normal. No mass. Kidneys and ureters: There is mild left ureteral dilatation , most likely a consequence of inflammatory changes from the sigmoid diverticulitis. No evidence of obstructing renal stone. Stomach and bowel: Scattered diverticulosis throughout the large bowel. Diverticulosis and moderate to severe thickening of the entire sigmoid colon with surrounding mesenteric stranding compatible with acute diverticulitis. Appendix: No evidence of appendicitis. Intraperitoneal space: Unremarkable. No free air. No significant fluid collection. Vasculature: Moderate atherosclerotic calcifications of the abdominal aorta and iliac arteries. Lymph nodes: Several borderline sized aortocaval lymph nodes most likely reactive (series 4, image 38), largest measuring 8 mm. Urinary bladder: Unremarkable as visualized. Reproductive: There is a pessary in place. Bones/joints: Unremarkable. No acute fracture. Soft tissues: Unremarkable. IMPRESSION: 1. Diverticulosis and moderate to severe thickening of the entire sigmoid colon with surrounding mesenteric stranding compatible with acute diverticulitis. 2. Small hiatal hernia. 3. Several borderline sized aortocaval lymph nodes most likely reactive (series 4, image 38), largest measuring 8 mm. 4. There is mild left ureteral dilatation, most likely a consequence of inflammatory changes from the sigmoid diverticulitis. No evidence of obstructing renal stone. Dictated and Authenticated by: Rosendo Garcia MD. Ordering:ROMEL Grajeda MD
[2021-03-11 17:31] VITALS: BP 155/79; PULSE 101; RESP 17; TEMP 37.5; O2SAT 94
[2021-03-11 17:47] LABS: Source Nasal/Nares
--- NOTE | 2021-03-11 17:50 | NUR.NOTE ---
covid swab collected and sent to lab:
[2021-03-11] MEDS: metroNIDAZOLE 500 MG/100 ML BAG 100 MG IVPB (18:01)
[2021-03-11 18:41] VITALS: BP 156/85; PULSE 95; RESP 18; TEMP 36.7; O2SAT 97
[2021-03-11 18:50] LABS: COVID-19 PCR Negative (Negative)
[2021-03-11] MEDS: Normal Saline 1,000 ML 100 ML IV (19:15)
[2021-03-11] MEDS: CIPROFLOXACIN 400 MG/200 ML BAG 200 MG IVPB (19:20)
[2021-03-11 19:31] VITALS: BP 164/81; PULSE 87; RESP 17; TEMP 37.4; O2SAT 97
[2021-03-11 19:33] VITALS: BP 164/81; PULSE 87; RESP 18; TEMP 37.4; O2SAT 97
[2021-03-11] MEDS: Melatonin 3 MG TAB PO (21:42)
[2021-03-11 23:07] VITALS: BP 146/73; PULSE 77; RESP 16; TEMP 36.2; O2SAT 96
[2021-03-12] MEDS: metroNIDAZOLE 500 MG/100 ML BAG 100 MG IVPB ×3 (01:50→18:35)
[2021-03-12] MEDS: Acetaminophen 325 MG TAB 650 MG PO (01:52)
[2021-03-12 03:17] VITALS: BP 133/78; PULSE 86; RESP 17; TEMP 35.2; O2SAT 97
[2021-03-12] MEDS: CIPROFLOXACIN 400 MG/200 ML BAG 200 MG IVPB ×2 (06:00→20:11)
[2021-03-12 06:59] LABS: Abs Immature Grans 0.01 10^3/uL (0.0-0.06); Absolute Basophil Count 0.03 10^3/uL (0.0-0.2); Absolute Eosinophil Count 0.05 10^3/uL (0.0-0.7); Absolute Lymphocyte Count 1.24 10^3/uL (1.2-3.4); Absolute Monocyte Count 0.78 10^3/uL (0.1-0.8); Absolute Neutrophil Count 5.29 10^3/uL (1.2-6.7); Basophils % 0.4; Eosinophils % 0.7; HCT 33.7 % (36.0-46.0); HGB 11.2 g/dL (11.2-15.7); Immature Grans % 0.1; Lymphocytes % 16.8; MCH 30.2 pg (27.0-33.0); MCHC 33.2 % (32.0-36.0); MCV 90.8 fL (80-95); MPV 8.8 fL (8.0-11.0); Monocytes % 10.5; Neutrophils % 71.5; Nucleated RBC 0 %; Platelet Count 308 10^3/uL (130-400); RBC 3.71 10^6/uL (3.93-5.22); RDW 12.1 % (11.7-14.6); RDW-SD 40.2 fL
[2021-03-12 07:06] LABS: Anion Gap 10.6 mmol/L (3-11); BUN 10 mg/dL (7-18); CO2 24.4 mmol/L (21.0-32.0); CREATININE 0.9 mg/dL (0.55-1.02); Calcium 8.5 mg/dL (8.5-10.1); Chloride 102 mmol/L (98-107); Glucose 124 mg/dL (74-106); Potassium 3.3 mmol/L (3.5-5.1); Sodium 137 mmol/L (136-145)
[2021-03-12] MEDS: hydroCHLOROthiazide 12.5 MG TAB PO (07:49)
[2021-03-12] MEDS: Enalapril 5 MG TAB PO (07:49)
[2021-03-12 08:20] VITALS: BP 147/79; PULSE 68; RESP 16; TEMP 35.7; O2SAT 96
--- NOTE | 2021-03-12 08:23 | HPE_ITS ---
Date of service: 03/12/21 Time of Service: 08:23 Assessment and Plan Assessment and plan (1) Acute diverticulitis: Status: Acute Assessment and plan: Acute Diverticulitis noted on CT scan Started on IV Cipro and Flagyl Tolerating clear liquid diet Pain is well controlled No fevers overnight Patient is eager to return home. Strongly encouraged ambulation and activity OOB today. History of Present Illness History of Present Illness Chief Complaint: Acute Diverticulitis Narrative: 70 y/o female with a history of HTN presented to the ER with complaints of decreased appetite for 1 week and LLQ abdominal pain that was associated with a low grade fever of a [address] scan in ER showed findings of acute diverticulitis. Patient was feeling better after IV fluids and pain medications. She was admitted to the surgical service for IV antibiotics. She was started on Cipro and Flagyl. This morning she states she is feeling well. Pain is well controlled and she is tolerating a clear liquid diet. No fevers over night. [facility] Medical History (Updated 03/11/21 @ 17:51 by Nicci Jerome DO) Dysuria Eczema HTN (hypertension) Hypoparathyroidism Insomnia Pessary maintenance Prolapse of female pelvic organs Recurrent urinary tract infection Seborrheic keratosis Urinary tract infection Surgical History S/P hysterectomy Social History Smoking/Tobacco Use Status: Never Smoking risk assessment performed?: Yes Alcohol Intake: never Drug use: Never Substance use type: does not use Do you feel safe at home: Yes Do you feel safe in your relationship?: Yes Meds Allergies and Home Medications Allergies Allergy/AdvReac Type Severity Reaction Status Date / Time Sulfa (Sulfonamide Allergy Intermediate Swelling/Ed Unverified 03/11/21 15:36 Antibiotics) lou enviornmental Allergy Mild stuffiness,itchy Uncoded 03/11/21 15:36 eyes Home Medications Medication Instructions Recorded Confirmed Type ergocalciferol (vitamin D2) 1 cap PO DIRECTED 03/30/15 03/11/21 History [Vitamin D2] ibuprofen [Ibuprofen IB] 200 mg PO PRN PRN 03/23/17 03/11/21 History cinnamon bark 500 mg capsule 1,000 mg PO DAILY cap 06/26/20 03/11/21 History cranberry extract 500 mg capsule 500 mg PO DAILY cap 06/26/20 03/11/21 History echinacea purpurea extract 125 mg 250 mg PO DAILY tab 06/26/20 03/11/21 History tablet eszopiclone 3 mg tablet 3 mg PO QHS PRN tab 06/26/20 03/11/21 History loratadine-pseudoephedrine ER 10 1 tab PO DAILY 06/26/20 03/11/21 History mg-240 mg tablet,extended [id number] multivitamin 1 tab PO DAILY 06/26/20 03/11/21 History ascorbic acid (vitamin C) 500 mg mg PO 08/04/20 11/05/20 History capsule enalapril 5 mg-hydrochlorothiazide 1 tab PO DAILY 11/05/20 03/11/21 History 12.5 mg tablet estradiol 1 g VAGINAL .twice a week #42.5 g 11/05/20 03/11/21 Rx Exam Const General: cooperative, healthy appearing and comfortable Orientation: alert and oriented x3 Resp Effort & Inspection: normal respiratory effort, no audible wheezes and no cough Results Labs Result diagrams: 03/12/21 06:19 03/12/21 06:19 Labs: Laboratory Results - last 24 hr 03/11/21 03/11/21 03/11/21 15:49 15:49 15:49 WBC 11.49 H RBC 4.23 Hgb 13.1 Hct 38.8 MCV 91.7 MCH 31.0 MCHC 33.8 RDW 11.9 Plt Count 389 MPV 8.6 Immature Gran % 0.3 Neutrophils % 81.4 Lymphocytes % 10.0 Monocytes % 7.7 Eosinophils % 0.1 Basophils % 0.5 Nucleated RBC % 0 Absolute Neutrophils 9.35 H Absolute Lymphocytes 1.15 L Absolute Monocytes 0.88 H Absolute Eosinophils 0.01 Absolute Basophils 0.06 VBG Lactate 1.0 Sodium 133 L Potassium 3.9 Chloride 97 L Carbon Dioxide 25.1 Anion Gap 10.9 BUN 18 Creatinine 0.9 Estimated GFR/1.73 m2 >= 60.00 Glucose 108 H Calcium 9.0 Total Bilirubin 0.3 AST 14 L ALT 26 Alkaline Phosphatase 132 H Total Protein 8.3 H Albumin 3.6 Urine Color Urine Clarity Urine pH Ur Specific [place] Urine Protein Urine Ketones Urine Blood Urine Nitrite Urine Bilirubin Urine Urobilinogen Ur Leukocyte Esterase Urine RBC Urine WBC Ur Epithelial Cells Urine Crystals Urine Bacteria Urine Casts Urine Mucus Urine Other Ur Culture Indicated? Urine Glucose COVID-19 Source SARS-CoV-2 (PCR) 03/11/21 03/11/21 03/12/21 15:49 17:40 06:19 WBC RBC Hgb Hct MCV MCH MCHC RDW Plt Count MPV Immature Gran % Neutrophils % Lymphocytes % Monocytes % Eosinophils % Basophils % Nucleated RBC % Absolute Neutrophils Absolute Lymphocytes Absolute Monocytes Absolute Eosinophils Absolute Basophils VBG Lactate Sodium 137 Potassium 3.3 L Chloride 102 Carbon Dioxide 24.4 Anion Gap 10.6 BUN 10 D Creatinine 0.9 Estimated GFR/1.73 m2 >= 60.00 Glucose 124 H Calcium 8.5 Total Bilirubin AST ALT Alkaline Phosphatase Total Protein Albumin Urine Color Yellow Urine Clarity Clear Urine pH 6.5 Ur Specific [place] 1.020 Urine Protein Negative Urine Ketones Negative Urine Blood Small H Urine Nitrite Negative Urine Bilirubin Negative Urine Urobilinogen 0.2 Ur Leukocyte Esterase Small H Urine RBC 5-10 H Urine WBC 5-10 Ur Epithelial Cells Negative Urine Crystals Negative Urine Bacteria Negative Urine Casts Negative Urine Mucus Negative Urine Other Few Renal Ur Culture Indicated? Yes Urine Glucose Negative COVID-19 Source Nasal/Nares SARS-CoV-2 (PCR) Negative 03/12/21 06:19 WBC 7.40 D RBC 3.71 L Hgb 11.2 Hct 33.7 L MCV 90.8 MCH 30.2 MCHC 33.2 RDW 12.1 Plt Count 308 MPV 8.8 Immature Gran % 0.1 Neutrophils % 71.5 Lymphocytes % 16.8 Monocytes % 10.5 Eosinophils % 0.7 Basophils % 0.4 Nucleated RBC % 0 Absolute Neutrophils 5.29 Absolute Lymphocytes 1.24 Absolute Monocytes 0.78 Absolute Eosinophils 0.05 Absolute Basophils 0.03 VBG Lactate Sodium Potassium Chloride Carbon Dioxide Anion Gap BUN Creatinine Estimated GFR/1.73 m2 Glucose Calcium Total Bilirubin AST ALT Alkaline Phosphatase Total Protein Albumin Urine Color Urine Clarity Urine pH Ur Specific [place] Urine Protein Urine Ketones Urine Blood Urine Nitrite Urine Bilirubin Urine Urobilinogen Ur Leukocyte Esterase Urine RBC Urine WBC Ur Epithelial Cells Urine Crystals Urine Bacteria Urine Casts Urine Mucus Urine Other Ur Culture Indicated? Urine Glucose COVID-19 Source SARS-CoV-2 (PCR) Last Vital Signs Temp 35.7 C L 03/12/21 08:20 Pulse 68 03/12/21 08:20 Resp 16 03/12/21 08:20 BP 147/79 H 03/12/21 08:20 Pulse Ox 96 03/12/21 08:20
--- NOTE | 2021-03-12 10:12 | PDOC.CMIN ---
- If Service Date Differs Date of service: 03/12/21 Time of Service: 10:12 Care Management Initial Assess REASON FOR HOSPITALIZATION:: Acute diverticulitis PAST MEDICAL HISTORY/PAST SURGICAL HISTORY:: Medical History (Updated 03/11/21 @ 17:51 by Nicci Jerome DO). Dysuria. Eczema. HTN (hypertension). Hypoparathyroidism. Insomnia. Pessary maintenance. 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 Recurrent urinary tract infection. Seborrheic keratosis. Urinary tract infection. Surgical History . S/P hysterectomy PREVIOUS FUNCTIONAL STATUS/SOCIAL/FAMILY SUPPORTS:: Nguyen lives alone in [place] Her recently in October of this year.She has 2 sons who live close by and are very supportive. She also has a daughter in [facility] and a granddaughter who lives in [facility] and works at the [employer]. 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 She describes herself as very active and mobile. She mows her own lawn and enjoys gardening. CURRENT FUNCTIONAL STATUS:: Nguyen was sitting up in a chair when CM met with her. She was very pleasant and engaged readily with CM. She shared that she is feeling much better today than yesterday and had hoped to be discharged. She verbalized disappointment that she must stay another night but understands the need. She denied the need for any serivces, citing that her sons, her neighbor and her sabianist group all support her. ADVANCE DIRECTIVES:: none on file but states that she has completed them. Has patient been provided with info about the portal/API?: Yes Did the patient sign up for the portal?: Yes (previously) CODE STATUS:: Full Code INSURANCE COVERAGE / FINANCIAL ISSUES:: [facility] CURRENT HOME/COMMUNITY SERVICES/EQUIPMENT:: none PRIMARY CARE PHYSICIAN:: Arabella Gambino POTENTIAL DISCHARGE NEEDS:: Follow up with PCP and plan of care PATIENT/FAMILY EDUCATION NEEDS:: Review of discharge instructions, diet, activity, limitations, follow up plan and Ask Me Three. TRANSPORTATION:: via private vehicle PLAN:: Nguyen will likely return home with no new services. She will follow up with her PCP, surgeon and plan of care and transport with family. CM will continue to support patient and assess for discharge planning needs.
[2021-03-12 11:38] VITALS: BP 163/81; PULSE 70; RESP 18; TEMP 36.5; O2SAT 97
--- NOTE | 2021-03-12 12:40 | W.PM.PROGNOT ---
Date of Service Date of service: 03/12/21 Time of Service: 12:20 Assessment and Plan Assessment and plan (1) Acute diverticulitis: Status: Acute Assessment and plan: Long segment of acute diverticulitis on CT scan Continue IV Cipro and Flagyl Tolerating clear liquid diet, will advance to full liquids for dinner Pain well controlled No fevers overnight Patient is eager to return home, but she understands why she needs to stay for continued IV antibiotics. Subjective Subjective Patient reports: feels better, still having pain, tolerating liquids well, flatus, bowel movement and afebrile; denies nausea and vomiting Interval history since last seen: Pt is feeling better since admission. Exam Const General: cooperative, healthy appearing, comfortable and no acute distress Orientation: alert, awake and oriented x3 Resp Effort & Inspection: normal respiratory effort and able to speak in complete sentences Auscultation: clear to auscultation bilaterally Cardio Rate: regular rate Rhythm: regular rhythm Heart Sounds: S1 normal and S2 normal GI Palpation: soft, no guarding, not rigid and tender in the LLQ Neuro General: patient alert, patient awake and patient oriented x3 Psych Appearance: grossly normal Speech and Movement: speech and movement normal Mood: congruent mood Affect: normal affect Attitude: cooperative Thought Process: normal Thought Content: normal Insight: insight good Judgment: judgment good Objective Last Vital Signs Temp 98.2 F 03/12/21 15:57 Pulse 76 03/12/21 15:57 Resp 17 03/12/21 15:57 BP 160/82 H 03/12/21 15:57 Pulse Ox 98 03/12/21 15:57 Laboratory Results - last 24 hr 03/11/21 03/12/21 03/12/21 17:40 06:19 06:19 WBC 7.40 D RBC 3.71 L Hgb 11.2 Hct 33.7 L MCV 90.8 MCH 30.2 MCHC 33.2 RDW 12.1 Plt Count 308 MPV 8.8 Immature Gran % 0.1 Neutrophils % 71.5 Lymphocytes % 16.8 Monocytes % 10.5 Eosinophils % 0.7 Basophils % 0.4 Nucleated RBC % 0 Absolute Neutrophils 5.29 Absolute Lymphocytes 1.24 Absolute Monocytes 0.78 Absolute Eosinophils 0.05 Absolute Basophils 0.03 Sodium 137 Potassium 3.3 L Chloride 102 Carbon Dioxide 24.4 Anion Gap 10.6 BUN 10 D Creatinine 0.9 Estimated GFR/1.73 m2 >= 60.00 Glucose 124 H Calcium 8.5 SARS-CoV-2 (PCR) Negative
--- NOTE | 2021-03-12 14:55 | CHAPLAIN ---
Nguyen was up in her chair when I visited. She was very pleasant. She is a member of [facility] and told me that she has many people praying for her. Her recovery collector is on sabbatical, but the religious leadership knows she is here.
[2021-03-12 15:57] VITALS: BP 160/82; PULSE 76; RESP 17; TEMP 36.8; O2SAT 98
[2021-03-12] MEDS: Pantoprazole 40 MG VIAL IVP (18:34)
[2021-03-12] MEDS: Normal Saline 1,000 ML 100 ML IV (20:12)
[2021-03-12 21:25] VITALS: BP 165/91; PULSE 82; RESP 18; TEMP 37; O2SAT 98
[2021-03-12] MEDS: Melatonin 3 MG TAB PO (21:30)
[2021-03-12 23:34] VITALS: BP 147/86; PULSE 76; RESP 17; TEMP 36.2; O2SAT 97
[2021-03-13] MEDS: metroNIDAZOLE 500 MG/100 ML BAG 100 MG IVPB ×2 (01:25→10:42)
[2021-03-13] MEDS: CIPROFLOXACIN 400 MG/200 ML BAG 200 MG IVPB (06:01)
[2021-03-13 07:01] LABS: Abs Immature Grans 0.01 10^3/uL (0.0-0.06); Absolute Basophil Count 0.03 10^3/uL (0.0-0.2); Absolute Eosinophil Count 0.05 10^3/uL (0.0-0.7); Absolute Lymphocyte Count 0.97 10^3/uL (1.2-3.4); Absolute Monocyte Count 0.58 10^3/uL (0.1-0.8); Absolute Neutrophil Count 4.03 10^3/uL (1.2-6.7); Basophils % 0.5; Eosinophils % 0.9; HCT 34.4 % (36.0-46.0); HGB 11.3 g/dL (11.2-15.7); Immature Grans % 0.2; Lymphocytes % 17.1; MCH 30.3 pg (27.0-33.0); MCHC 32.8 % (32.0-36.0); MCV 92.2 fL (80-95); MPV 8.5 fL (8.0-11.0); Monocytes % 10.2; Neutrophils % 71.1; Nucleated RBC 0 %; Platelet Count 322 10^3/uL (130-400); RBC 3.73 10^6/uL (3.93-5.22); RDW 11.9 % (11.7-14.6); RDW-SD 40.2 fL; WBC 5.67 10^3/uL (4.4-10.8)
[2021-03-13 07:03] VITALS: BP 153/81; PULSE 76; RESP 20; TEMP 36; O2SAT 97
[2021-03-13 07:15] LABS: BUN 6 mg/dL (7-18); CREATININE 0.9 mg/dL (0.55-1.02); Calcium 8.6 mg/dL (8.5-10.1); Chloride 100 mmol/L (98-107); Glucose 187 mg/dL (74-106); Sodium 137 mmol/L (136-145)
[2021-03-13 07:17] LABS: Potassium 2.9 mmol/L (3.5-5.1)
--- NOTE | 2021-03-13 07:49 | W.PM.PROGNOT ---
Date of Service Date of service: 03/13/21 Time of Service: 07:49 Assessment and Plan Assessment and plan (1) Acute diverticulitis: Status: Acute Assessment and plan: Continue IV Cipro and Flagyl Tolerating Full liquid diet. Pain well controlled No fevers overnight Strongly encouraged ambulation and activity OOB. Subjective Subjective Interval history since last seen: Patient reports that her abdominal pain is improving. She continues to have some LLQ discomfort. She is tolerating the full liquid diet. She states she has not yet had a BM, however she feels that she will be able to have one soon. Exam Const General: cooperative, healthy appearing and comfortable Orientation: alert and oriented x3 Resp Effort & Inspection: normal respiratory effort, no audible wheezes and no cough GI Palpation: soft, no guarding and tender in the LLQ Auscultation: normal bowel sounds Objective Last Vital Signs Temp 36.0 C L 03/13/21 07:03 Pulse 76 03/13/21 07:03 Resp 20 03/13/21 07:03 BP 153/81 H 03/13/21 07:03 Pulse Ox 97 03/13/21 07:03 Laboratory Results - last 24 hr 03/13/21 03/13/21 06:31 06:31 WBC 5.67 RBC 3.73 L Hgb 11.3 Hct 34.4 L MCV 92.2 MCH 30.3 MCHC 32.8 RDW 11.9 Plt Count 322 MPV 8.5 Immature Gran % 0.2 Neutrophils % 71.1 Lymphocytes % 17.1 Monocytes % 10.2 Eosinophils % 0.9 Basophils % 0.5 Nucleated RBC % 0 Absolute Neutrophils 4.03 Absolute Lymphocytes 0.97 L Absolute Monocytes 0.58 Absolute Eosinophils 0.05 Absolute Basophils 0.03 Sodium 137 Potassium 2.9 L Chloride 100 Carbon Dioxide 25.0 Anion Gap 12.0 H BUN 6 L Creatinine 0.9 Estimated GFR/1.73 m2 >= 60.00 Glucose 187 H Calcium 8.6
[2021-03-13] MEDS: Enalapril 5 MG TAB PO (08:32)
[2021-03-13] MEDS: hydroCHLOROthiazide 12.5 MG TAB PO (08:32)
[2021-03-13] MEDS: POTASSIUM CHLORIDE 20 MEQ/100 ML BAG 50 MEQ IVPB ×2 (08:38→10:42)
--- NOTE | 2021-03-13 12:28 | PHA.REVIEW ---
Pharmacy Admission Review - Admission Clinical Review (Last Updated 12/08/20 @ 16:14 by Sigrid Alicia DO) Acute diverticulitis (Acute) Fever (Acute) Sulfa (Sulfonamide Antibiotics) Allergy (Intermediate, Unverified 03/11/21 15:36) Swelling/Edema enviornmental Allergy (Mild, Uncoded 03/11/21 15:36) stuffiness,itchy eyes Resuscitation Status Full Code Height 5 ft 1 in Weight 64.864 kg - Renal Dosing Renal Dosing: BUN 6 mg/dL (7-18) L 03/13/21 06:31 Creatinine 0.9 mg/dL (0.55-1.02) 03/13/21 06:31 Medications needing adjustments: Reviewed (Crcl ~42.63 mL/min. Its recommended to use a lower dose of ketorolac with the patient's current renal function, will mention to provider.) - Anticoagulation Anticoagulation: Hgb 11.3 g/dL (11.2-15.7) 03/13/21 06:31 Hct 34.4 % (36.0-46.0) L 03/13/21 06:31 Plt Count 322 10^3/uL (130-400) 03/13/21 06:31 Creatinine 0.9 mg/dL (0.55-1.02) 03/13/21 06:31 DVT Prophylaxis: Reviewed (None currently ordered, will ask provider about need.) Therapeutic Anticoagulation: N/A - Opiate Usage Evaluate Pain Scale/Pains Meds: N/A - Relevant Labs Sodium 137 mmol/L (136-145) 03/13/21 06:31 Potassium 2.9 mmol/L (3.5-5.1) L 03/13/21 06:31 Chloride 100 mmol/L (98-107) 03/13/21 06:31 Electrolytes, C-Reactive P, ESR: Reviewed (IV potassium ordered this morning) - DM Control DM Control: Glucose 187 mg/dL (74-106) H 03/13/21 06:31 Insulin Dosing: N/A (BG has been elevated so far this admission, will mention to provider.) - Heart Failure/MT EF%, COLLIN's, B-Blockers, Diuretics: N/A - BP Control BP Control: Blood Pressure 153/81 If elevated: Reviewed (BP has been elevated most of admission so far, has home doses of enalapril and hydrochlorothiazide ordered) - Qtc Review If Elevated: N/A - IV to PO Switch IV Medications: Reviewed - Home Meds Home Med List reviewed: Intervened (Note on home med list that there was a change with the enalapril-HCTZ, but the patient did not know what the change was. Per external med history the patient is only on the enalapril. Waiting for call back from PCPs office about this.) - Current meds Current Medication Order Review: Reviewed - Comments Comments/Follow Ups: Watch BP, BG, K+, labs and for med changes. Antibiotic Activity - Pharmacy Antibiotic Review Pharmacy Antibiotic Activity: Reviewed, no change (cipro and metronidazole continue (day 3 starts this evening))
--- NOTE | 2021-03-13 15:20 | W.PM.DS.N ---
Date of service: 03/13/21 Time of Service: 15:30 DS: Diagnosis Discharge Diagnosis (1) Acute diverticulitis: Status: Acute Asessment and Plan: 70yo female admitted with uncomplicated acute diverticulitis. Her pain is decreased and improved. She has been afebrile and hemodynamically stable, and her leukocytosis has resolved. She feels stable and able to go home. --d/c home --12 more days of oral antibiotics --pain control --f/u in surgical services to schedule colonoscopy in 6-8 weeks Discharge Plan Disposition Patient Disposition: HOME Condition: Stable Discharge Details Reason For Visit: Acute Diverticulitis Admit Date/Time: 03/11/21 17:41 Admit Provider: Yuly Morris Attending Provider: Yuly Morris Primary Care Provider: Arabella Gambino [facility] Course Hospital Course: This is a 70-year-old female who was admitted from the ED on 03/11/2021, with a diagnosis of uncomplicated acute diagnosis. She has not been hospitalized for this before. She was admitted for IV cipro/flagyl, and placed on clears, which she tolerated. On HD#2, her pain and physical exam was improved, and her diet was advanced to full liquids. Today, HD#3, she feels well. Her pain is decreased. Her WBC is normal. And she has been afebrile and hemodynamically stable throughout. She has had a couple of small, bloody, formed stools. She was also treated for hypokalemia with supplemental potassium chloride. She is eager to go home. She knows to f/u for outpatient colonoscopy. Home Meds and New Rx's Prescriptions: New amoxicillin-pot clavulanate [Augmentin] 875-125 mg tablet 1 tab PO BID Qty: 24 RF: 0 Continued estradiol [Estrace] 0.01 % (0.1 mg/gram) cream 1 g vaginal .twice a week Qty: 42.5 RF: 3 eszopiclone [Lunesta] 3 mg tablet 3 mg PO QHS PRNRF: 0 loratadine-pseudoephedrine [Claritin-D 24 Hour] 10-240 mg tablet extended release 24 hr 1 tab PO DAILY RF: 0 ergocalciferol (vitamin D2) [Vitamin D2] 50,000 UNITS capsule 1 cap PO DIRECTED RF: 0 enalapril maleate 5 mg tablet 5 mg PO DAILY RF: 0 Discontinued ascorbic acid (vitamin C) 500 mg capsule PO RF: 0 cranberry extract [Cranberry Concentrate] 500 mg capsule 500 mg PO DAILY RF: 0 echinacea purpurea extract [echinacea] 125 mg tablet 250 mg PO DAILY RF: 0 multivitamin Tablet 1 tab PO DAILY RF: 0 cinnamon bark 500 mg capsule 1,000 mg PO DAILY RF: 0 No Action ibuprofen [Ibuprofen IB] 200 MG tablet 200 mg PO PRN PRNRF: 0 Discharge Instructions Instructions: Diverticulitis (DC), Diverticulitis Diet (DC) Additional Instructions: Hold your current home vitamins/supplements until recovered from this acute infection, and until you've followed up as an outpatient. For pain control, may take acetaminophen, every 4-6 hours. Do NOT exceed more than 4gm/4000mg every 24 hours. Activity:: Activity as Tolerated Equipment/Supplies:: No Equipment Needed Diet:: low-fiber/full liquids DS: Summary Time Spent with Patient providing and/or coordinating discharge services: Greater than 30 minutes Status at Discharge Functional status at discharge: independent ambulation Overall status at discharge: patient is not back to baseline Mental Status: mental status grossly normal Speech and Movement: speech and movement normal Mood: congruent mood Affect: normal affect Exam Psych Mental Status: mental status grossly normal Speech and Movement: speech and movement normal Mood: congruent mood Affect: normal affect DS: Data Vitals/I&O Vitals and I&O: Vital Signs Temperature 96.8 F L 03/13/21 07:03 Temperature Source Tympanic 03/13/21 07:03 Pulse 76 03/13/21 07:03 Pulse Rhythm Regular 03/13/21 08:43 Respiratory Rate 20 03/13/21 07:03 Respiratory Effort Non-Labored 03/13/21 08:43 Respiratory Depth Normal 03/13/21 08:43 Respiratory Pattern Normal 03/13/21 08:43 Blood Pressure 153/81 H 03/13/21 07:03 Blood Pressure Position Sitting 03/11/21 15:34 Pulse Oximetry 97 03/13/21 07:03 Oxygen Delivery Method Room Air 03/13/21 07:03 Oxygen Flow Rate 0 03/13/21 07:03 Pain Level 0 03/12/21 23:34 Comment 03/11/21 18:41 Intake & Output 03/12/21 03/13/21 03/13/21 23:59 11:59 23:59 Intake Total 1580 / 3850 880 / 1330 450 / 1330 Output Total 5100 / 7120 1350 / 2150 800 / 2150 Balance -3520 / -3270 -470 / -820 -350 / -820 Intake: IV 300 / 1720 400 / 400 Oral 1280 / 2130 480 / 930 450 / 930 Output: Urine 5100 / 7120 1350 / 2150 800 / 2150 Other: Urine Color Yellow Yellow Yellow Urine Appearance Clear Clear Clear Urine Odor None None None Stool Occult Blood Positive Stool Size Small Small Small Stool Characteristics Formed Formed Liquid Hard Brown Voiding Methods Toilet Toilet Toilet Data Completed and Pending Labs on day of discharge: Labs from last 24 hours 03/13/21 03/13/21 03/13/21 12:40 06:31 06:31 WBC 5.67 RBC 3.73 L Hgb 11.3 Hct 34.4 L MCV 92.2 MCH 30.3 MCHC 32.8 RDW 11.9 Plt Count 322 MPV 8.5 Immature Gran % 0.2 Neutrophils % 71.1 Lymphocytes % 17.1 Monocytes % 10.2 Eosinophils % 0.9 Basophils % 0.5 Nucleated RBC % 0 Absolute Neutrophils 4.03 Absolute Lymphocytes 0.97 L Absolute Monocytes 0.58 Absolute Eosinophils 0.05 Absolute Basophils 0.03 Sodium 137 Potassium Pending 2.9 L Chloride 100 Carbon Dioxide 25.0 Anion Gap 12.0 H BUN 6 L Creatinine 0.9 Estimated GFR/1.73 m2 >= 60.00 Glucose 187 H Calcium 8.6 Preliminary micro results at discharge 03/11/21 16:05 Blood Culture - Preliminary Blood NO GROWTH 24 HOURS 03/11/21 15:49 Blood Culture - Preliminary Blood NO GROWTH 24 HOURS [facility] Medical History (Updated 03/11/21 @ 17:51 by Nicci Jerome DO) Dysuria Eczema HTN (hypertension) Hypoparathyroidism Insomnia Pessary maintenance Prolapse of female pelvic organs Recurrent urinary tract infection Seborrheic keratosis Urinary tract infection Surgical History S/P hysterectomy Social History Smoking/Tobacco Use Status: Never Smoking risk assessment performed?: Yes Alcohol Intake: never Drug use: Never Substance use type: does not use Do you feel safe at home: Yes Do you feel safe in your relationship?: Yes
--- NOTE | 2021-03-13 15:42 | PDOC.CMDIS ---
- If Service Date Differs Date of service: 03/13/21 Time of Service: 15:42 LACE Index Scoring Tool - Questions: Length of Stay (in days): 2 Acuity (Admit via E.D.?): Yes E.D. Visits: 3 - Answers: Total Score: 8 Risk of Readmission: Low Risk Care Management Discharge Reason for Hospitalization: Acute diverticulitis Discharge Plan: Nguyen will be discharged home with no new services. She will follow up with her surgeon, PCP and discharge plan and will drive herself home. Patient/Family Education Needs: Review of discharge instructions, diet, activity, limitations, follow up plan and Ask Me Three.
== END 2021-03-13 17:23 | disposition home or self-care (01) ==
LOC: ER 17:51 → MS 03-12 04:16
PROVIDERS: Surgery; Admitting Provider Surgery; Emergency Provider Physician Assistant; PCP Nurse Practitioner Family; Visit Provider Surgery
DX: K57.32 Diverticulitis of large intestine without perforation or abscess without bleeding (principal); R30.0 Dysuria; L30.9 Dermatitis, unspecified; G47.00 Insomnia, unspecified; E20.9 Hypoparathyroidism, unspecified; N81.4 Uterovaginal prolapse, unspecified; Z87.440 Personal history of urinary (tract) infections; Z20.822 Contact with and (suspected) exposure to COVID-19
CPT/HCPCS: 36415; 80048; 80053; 87040; 87635; 96361; 96365; 99285; 74177; 81003; 81015; 83605; 84132; 85025; 87086; G0378; J0131; J0744; J3480; J3490

== ENCOUNTER 2021-05-01 21:24 | Emergency (ER) | payer OTHER, SELFPAY ==
[2021-05-01] VITALS (25 sets, daily range): BP systolic 150–201; BP diastolic 64–110; PULSE 75–116; RESP 11–25; TEMP 36.2; O2SAT 95–98
--- NOTE | 2021-05-01 21:30 | RT.EKG_ITS ---
APPROVED REPORT Exam: Resting ECG Reason for Exam: [facility] Patient Location: E HR:93 bpm ECG Measurements Heart Rate 93 AXIS VT 172 P -1 QRSd 140 QRS -11 QT 420 T -33 QTc 522 Conclusion Sinus rhythm...normal P axis, V-rate 60- 99 Left bundle branch block...QRSd>120, broad/notched R
--- NOTE | 2021-05-01 22:05 | ED.GENADUL_ITS ---
Discharge Plan Disposition Patient Disposition: HOME Condition: Stable Discharge Details Clinical Impression: HTN (hypertension) Primary Care Provider: Arabella Gambino ED Provider: Boris Pate [place] Meds and New Rx's Prescriptions: Continued estradiol [Estrace] 0.01 % (0.1 mg/gram) cream 1 g vaginal .twice a week Qty: 42.5 RF: 3 bisacodyl [Dulcolax (bisacodyl)] 5 mg tablet,delayed release (DR/EC) 5 mg PO ONCE Qty: 4 RF: 0 polyethylene glycol 3350 17 gram/dose powder 238 g PO ONCE Qty: 238 RF: 0 eszopiclone [Lunesta] 3 mg tablet 3 mg PO QHS PRNRF: 0 loratadine-pseudoephedrine [Claritin-D 24 Hour] 10-240 mg tablet extended release 24 hr 1 tab PO DAILY RF: 0 polyethylene glycol 3350 17 gram/dose powder 238 g PO ONCE Qty: 238 RF: 0 bisacodyl [Dulcolax (bisacodyl)] 5 mg tablet,delayed release (DR/EC) 5 mg PO ONCE Qty: 4 RF: 0 ergocalciferol (vitamin D2) [Vitamin D2] 50,000 UNITS capsule 1 cap PO DIRECTED RF: 0 enalapril maleate 5 mg tablet 10 mg PO DAILY RF: 0 ibuprofen [Ibuprofen IB] 200 MG tablet 200 mg PO PRN PRNRF: 0 Discharge Instructions Instructions: Hypertension (ED) Additional Instructions: Your EKG, labs and imaging look okay tonight. You will need to follow up with PCP for management of BP. You should return to ED for severe headache, neurological changes, confusion, chest pain, shortness of breath, other concerns. Referrals: Arabella Gambino [Primary Care Provider] - Discharge Data Discharge Date/Time-TO BE ENTERED AT DEPARTURE: 05/02/21 01:40 Medical Decision Making <MEENU Chen - Last Filed: 05/02/21 16:51> This is a 70-year-old female who reports generally not feeling well since Tuesday, blood pressure was noticed to be high in a prescreening colonoscopy appointment yesterday, since that time she bought a monitor and has been checking her levels at home, consistently in the 180s or 190s over 100. She denies any discomfort or focal neurologic deficit. She reports just prior to arrival she noticed a sitting pressure in her right shoulder although that has resolved completely. Upon arrival blood pressure noted to be 186/90, pulse of 116 in triage but during my evaluation her pulse was in the 90s. When reviewing her blood pressures over the past year it does appear as though she has been consistently elevated. Her primary care provider did recently increase her enalapril from 5 up to 10 mg. Clinically she appears well, nontoxic, no headache, visual changes, chest pain. She did have a fleeting sensation in her right shoulder. Based upon her presentation I doubt ACS but given her sensation in her right shoulder I do believe obtaining a cardiac work-up is reasonable. She did present slightly tachycardic and hypertensive, we will also obtain a D- dimer. We will give a full dose aspirin and also give 10 IV labetalol. Prior to do labetalol given, blood pressure 161/110. Laboratory values reveal a D-dimer slightly elevated at 746. Will pursue CTA of the chest. Initial troponin less than 0.05. TSH 3.6 Blood pressure 150/75 after labetalol was given. Pulse of 76. Awaiting CTA Medical Records Medical records reviewed: Yes I reviewed the patient's medical records. Lab Data Lab results reviewed: Yes I reviewed the patient's lab results. Labs: Laboratory Tests Range/Units 05/01/21 05/01/21 05/01/21 22:10 22:10 22:10 WBC (4.4-10.8) 10^3/uL 6.23 RBC (3.93-5.22) 10^6/uL 4.14 Hgb (11.2-15.7) g/dL 12.6 Hct (36.0-46.0) % 37.4 MCV (80-95) fL 90.3 MCH (27.0-33.0) pg 30.4 MCHC (32.0-36.0) % 33.7 RDW (11.7-14.6) % 12.5 Plt Count (130-400) 10^3/uL 312 MPV (8.0-11.0) fL 8.4 Immature Gran % 0.3 Neutrophils % 55.9 Lymphocytes % 33.2 Monocytes % 8.7 Eosinophils % 1.3 Basophils % 0.6 Nucleated RBC % % 0 Absolute Neutrophils (1.2-6.7) 10^3/uL 3.48 Absolute Lymphocytes (1.2-3.4) 10^3/uL 2.07 Absolute Monocytes (0.1-0.8) 10^3/uL 0.54 Absolute Eosinophils (0.0-0.7) 10^3/uL 0.08 Absolute Basophils (0.0-0.2) 10^3/uL 0.04 D-Dimer (<500) ng/mlFEU Sodium (136-145) mmol/L 133 L Potassium (3.5-5.1) mmol/L 3.5 Chloride (98-107) mmol/L 98 Carbon Dioxide (21.0-32.0) mmol/L 26.2 Anion Gap (3-11) mmol/L 8.8 BUN (7-18) mg/dL 16 Creatinine (0.55-1.02) mg/dL 0.8 Estimated GFR/1.73 m2 (mL/min/1.73m2) >= 60.00 Glucose (74-106) mg/dL 125 H Calcium (8.5-10.1) mg/dL 8.6 Magnesium (1.8-2.4) mg/dL 1.9 Total Bilirubin (0.2-1.0) mg/dL 0.2 AST (15-37) U/L 18 ALT (14-59) U/L 29 Alkaline Phosphatase (46-116) U/L 141 H Troponin I (<0.06) ng/mL < 0.05 Total Protein (6.4-8.2) g/dL 7.7 Albumin (3.4-5.0) g/dL 3.5 TSH (0.36-3.74) uIU/mL 3.63 Range/Units 05/01/21 22:10 WBC (4.4-10.8) 10^3/uL RBC (3.93-5.22) 10^6/uL Hgb (11.2-15.7) g/dL Hct (36.0-46.0) % MCV (80-95) fL MCH (27.0-33.0) pg MCHC (32.0-36.0) % RDW (11.7-14.6) % Plt Count (130-400) 10^3/uL MPV (8.0-11.0) fL Immature Gran % Neutrophils % Lymphocytes % Monocytes % Eosinophils % Basophils % Nucleated RBC % % Absolute Neutrophils (1.2-6.7) 10^3/uL Absolute Lymphocytes (1.2-3.4) 10^3/uL Absolute Monocytes (0.1-0.8) 10^3/uL Absolute Eosinophils (0.0-0.7) 10^3/uL Absolute Basophils (0.0-0.2) 10^3/uL D-Dimer (<500) ng/mlFEU 746 H Sodium (136-145) mmol/L Potassium (3.5-5.1) mmol/L Chloride (98-107) mmol/L Carbon Dioxide (21.0-32.0) mmol/L Anion Gap (3-11) mmol/L BUN (7-18) mg/dL Creatinine (0.55-1.02) mg/dL Estimated GFR/1.73 m2 (mL/min/1.73m2) Glucose (74-106) mg/dL Calcium (8.5-10.1) mg/dL Magnesium (1.8-2.4) mg/dL Total Bilirubin (0.2-1.0) mg/dL AST (15-37) U/L ALT (14-59) U/L Alkaline Phosphatase (46-116) U/L Troponin I (<0.06) ng/mL Total Protein (6.4-8.2) g/dL Albumin (3.4-5.0) g/dL TSH (0.36-3.74) uIU/mL ECG Data Attestation: I personally reviewed and interpreted this ECG (s) as follows: Interpretation: Please see official report by Dr. Spring. Sinus rhythm, ventricular rate 93, left bundle branch block. <Boris Pate MD - Last Filed: 05/02/21 01:33> Patient signed out to me pending CTA and repeat trop/EKG. She had presented with elevated BP and fleeting CP and seen initially by MEENU Angeles. CTA is negative. Repeat EKG and trop are fine. Patient's BP down here with one dose of labetalol. Patient asymptomatic here. Discharge home to follow up with PCP. Return to ED for severe headache, neuro change, confusion, chest pain, shortness of breath. Lab Data Lab results reviewed: Yes I reviewed the patient's lab results. ECG Data Attestation: I personally reviewed and interpreted this ECG (s) as follows: Prior ECG tracings: available for review Interpretation: see EKG HPI <MEENU Chen - Last Filed: 05/02/21 16:51> General Mode of arrival: ambulatory . Date/Time Provider Initiated Documentation: 05/01/21 21:25 . Limitations to Documentation: no limitations . Information obtained by: patient . HPI Narrative: This is a 70-year-old female, past medical history of hypertension, hypoparathyroidism, diverticulitis, stating that she has simply not felt well since Tuesday, noticed that her blood pressure was elevated yesterday during a colonoscopy screening. Since that time she has been checking her blood pressure at home and reports it is consistently in the 190s over 100s. She denies any recent illness or trauma. Denies headache, visual changes, neck pain, chest pain, shortness of breath, back pain, abdominal pain, nausea, vomiting, change in bowel or bladder function, numbness, tingling, weakness, skin rash. She does states that a little prior to arrival she noticed a fleeting pressure or sensation in her right shoulder but that has subsequently resolved. Approximately 1 month ago she had her Enalapril changed to enalapril maleate and went from 5 mg up to 10 mg. She denies any pain or swelling in her legs. Denies history of cardiac or pulmonary disease. Denies history of DVT. She denies increased stress, change in her sleeping or eating habits. Related Data Home Medications Medication Instructions Recorded Confirmed ergocalciferol (vitamin D2) 1 cap PO DIRECTED 03/30/15 05/01/21 [Vitamin D2] ibuprofen [Ibuprofen IB] 200 mg PO PRN PRN 03/23/17 05/01/21 eszopiclone 3 mg tablet 3 mg PO QHS PRN tab 06/26/20 05/01/21 loratadine-pseudoephedrine ER 10 1 tab PO DAILY 06/26/20 05/01/21 mg-240 mg tablet,extended [id number] estradiol 1 g VAGINAL .twice a week #42.5 g 11/05/20 05/01/21 enalapril maleate 10 mg PO DAILY 03/13/21 05/01/21 bisacodyl 5 mg tablet,delayed 5 mg PO ONCE #4 tab 04/10/21 05/01/21 release polyethylene glycol 3350 17 238 g PO ONCE #238 g 04/10/21 05/01/21 gram/dose oral powder bisacodyl 5 mg tablet,delayed 5 mg PO ONCE #4 tab 04/30/21 05/01/21 release polyethylene glycol 3350 17 238 g PO ONCE #238 g 04/30/21 05/01/21 gram/dose oral powder Previous Rx's Medication Instructions Recorded estradiol 1 g VAGINAL .twice a week #42.5 g 11/05/20 bisacodyl 5 mg tablet,delayed 5 mg PO ONCE #4 tab 04/10/21 release polyethylene glycol 3350 17 238 g PO ONCE #238 g 04/10/21 gram/dose oral powder bisacodyl 5 mg tablet,delayed 5 mg PO ONCE #4 tab 04/30/21 release polyethylene glycol 3350 17 238 g PO ONCE #238 g 04/30/21 gram/dose oral powder Allergies Allergy/AdvReac Type Severity Reaction Status Date / Time Sulfa (Sulfonamide Allergy Intermediate Swelling/Ed Unverified 05/01/21 21:32 Antibiotics) olu enviornmental Allergy Mild stuffiness,itchy Uncoded 05/01/21 21:32 eyes General Stated Complaint: [facility] ARTHUR: 4 Review of Systems <MEENU Chen - Last Filed: 05/02/21 16:51> Constitutional Constitutional: Denies fatigue, Denies fever(s), Denies headache(s) and Denies weakness Eyes Eyes: Denies change in vision ENT Ears, Nose, Mouth, and Throat: Denies headache(s) and Denies neck pain Cardiovascular Cardiovascular: Denies chest pain and Denies dyspnea Respiratory Respiratory: Denies cough and Denies dyspnea Gastrointestinal Gastrointestinal: Denies abdominal pain, Denies nausea and Denies vomiting Genitourinary Genitourinary: Denies dysuria Musculoskeletal Musculoskeletal: Denies back pain, Denies neck pain, Denies numbness and Denies tingling Integumentary/Breasts Skin/Breast: Denies rash Neurologic Neurologic: Denies headache(s), Denies numbness, Denies tingling and Denies weakness Endocrine Endocrine: Denies fatigue Hematologic/Lymphatic Hematologic/Lymphatic: Denies easy bleeding and Denies easy bruising PFSH <MEENU Chen - Last Filed: 05/02/21 16:51> Medical History Dysuria Eczema HTN (hypertension) Hypoparathyroidism Insomnia Pessary maintenance Prolapse of female pelvic organs Recurrent urinary tract infection Seborrheic keratosis Urinary tract infection Surgical History History of colonoscopy (~01/2016) @ [facility] Dr. Caleb Morales S/P hysterectomy Social History Smoking/Tobacco Use Status: Never Smoking risk assessment performed?: Yes Alcohol Intake: never Drug use: Never Substance use type: does not use Do you feel safe at home: Yes Do you feel safe in your relationship?: Yes Exam <MEENU Chen - Last Filed: 05/02/21 16:51> Const General: cooperative, healthy appearing, comfortable, no acute distress and anxious (Slightly) Orientation: alert, awake and oriented x3 HENMT Head: normal to inspection, normocephalic and atraumatic Face and sinus: normal facial exam Mouth: moist mucous membranes Throat: posterior oropharynx normal Eyes General: appearance normal, both eyes and all related structures Alignment and Position: alignment normal Periorbital: periorbital findings normal Eyelids: eyelids normal Conjunctivae: conjunctivae normal Sclera: sclerae normal Cornea: corneas normal Pupils: PERRL EOM: EOM intact bilaterally Neck Neck: normal visual inspection, full ROM, trachea midline and supple Resp Effort & Inspection: normal respiratory effort and able to speak in complete sentences Auscultation: clear to auscultation bilaterally Cardio Rate: regular rate Rhythm: regular rhythm GI Palpation: soft, not firm, no guarding, no pulsatile masses and nontender Back/Spine/Pelvis Back: No back tenderness Skin General skin exam: no rashes or lesions noted Neuro General: patient alert, patient awake, moves all extremities and no focal motor deficits Cognition: normal cognition Speech: speech normal Gait: normal gait Motor: muscle tone normal throughout, no movement abnormalities noted and no fasciculations Sensory Exam: no sensory deficits noted Coordination: Does not sway with eyes open Extrem General: normal to inspection, full ROM, capillary refill normal, no pedal edema and no calf tenderness Psych Appearance: grossly normal Mental Status: mental status grossly normal Course <MEENU Chen - Last Filed: 05/02/21 16:51> Vital Signs Vital signs: Vital Signs Temperature 36.2 C L 05/01/21 21:26 Pulse 116 H 05/01/21 21:26 Respiratory Rate 18 05/01/21 21:26 Blood Pressure 186/90 H 05/01/21 21:26 Pulse Oximetry 97 05/01/21 21:26 Temperature 36.2 C L 05/01/21 21:26 Temperature Source Skin 05/01/21 21:26 Pulse 116 H 05/01/21 21:26 Respiratory Rate 16 05/01/21 21:36 Respiratory Effort Non-Labored 05/01/21 21:36 Respiratory Depth Normal 05/01/21 21:36 Respiratory Pattern Normal 05/01/21 21:36 Blood Pressure 186/90 H 05/01/21 21:26 Blood Pressure Position Sitting 05/01/21 21:26 Pulse Oximetry 97 05/01/21 21:26 Oxygen Delivery Method Room Air 05/01/21 21:26 Oxygen Flow Rate 0 05/01/21 21:26 Pain Level 0 05/01/21 21:26 Sign Out <MEENU Chen - Last Filed: 05/02/21 16:51> Sign Out Data: Sign Out Comment: Patient presents with acute on chronic hypertension. Blood pressure responded nicely to labetalol. D-dimer minimally elevated, awaiting CTA of the chest, delta troponin, monitoring BP, and reassessment. If CTA is unremarkable and delta troponin is not trending upward, patient can likely be discharged with short-term prescription for metoprolol until she can be seen by her primary care provider next week. Last updated by Arslan Angeles PA at 05/01/21 23:29
[2021-05-01 22:14] LABS: Abs Immature Grans 0.02 10^3/uL (0.0-0.06); Absolute Basophil Count 0.04 10^3/uL (0.0-0.2); Absolute Eosinophil Count 0.08 10^3/uL (0.0-0.7); Absolute Lymphocyte Count 2.07 10^3/uL (1.2-3.4); Absolute Monocyte Count 0.54 10^3/uL (0.1-0.8); Absolute Neutrophil Count 3.48 10^3/uL (1.2-6.7); Basophils % 0.6; Eosinophils % 1.3; HCT 37.4 % (36.0-46.0); HGB 12.6 g/dL (11.2-15.7); Immature Grans % 0.3; Lymphocytes % 33.2; MCH 30.4 pg (27.0-33.0); MCHC 33.7 % (32.0-36.0); MCV 90.3 fL (80-95); MPV 8.4 fL (8.0-11.0); Monocytes % 8.7; Neutrophils % 55.9; Nucleated RBC 0 %; Platelet Count 312 10^3/uL (130-400); RBC 4.14 10^6/uL (3.93-5.22); RDW 12.5 % (11.7-14.6); RDW-SD 40.8 fL; WBC 6.23 10^3/uL (4.4-10.8)
[2021-05-01] MEDS: Aspirin 81 MG CHEW 324 MG CH (22:14)
[2021-05-01 22:26] LABS: Magnesium 1.9 mg/dL (1.8-2.4)
[2021-05-01 22:38] LABS: AST 18 U/L (15-37); Albumin 3.5 g/dL (3.4-5.0); Bilirubin, Total 0.2 mg/dL (0.2-1.0); Chloride 98 mmol/L (98-107); Potassium 3.5 mmol/L (3.5-5.1); Sodium 133 mmol/L (136-145); Total Protein 7.7 g/dL (6.4-8.2)
[2021-05-01 22:39] LABS: Troponin I < 0.05 ng/mL (<0.06)
[2021-05-01 22:56] LABS: D-Dimer 746 ng/mlFEU (<500)
[2021-05-01 23:00] LABS: ALT 29 U/L (14-59); Alkaline Phosphatase 141 U/L (46-116); Anion Gap 8.8 mmol/L (3-11); BUN 16 mg/dL (7-18); CO2 26.2 mmol/L (21.0-32.0); CREATININE 0.8 mg/dL (0.55-1.02); Calcium 8.6 mg/dL (8.5-10.1); Glucose 125 mg/dL (74-106); TSH (W/Ref FT4) 3.63 uIU/mL (0.36-3.74)
--- NOTE | 2021-05-01 23:00 | NUR.NOTE ---
Awaiting greenhouse assistant to bring labatelol dose.Nursing Note:
[2021-05-01] MEDS: Labetalol 100 MG/20 ML VIAL 10 MG IVP (23:14)
--- NOTE | 2021-05-01 23:35 | DI.CT_ITS ---
Exam(s) CT CHEST PE CTA EXAM: CT CHEST PE CTA CLINICAL HISTORY: HTN,TACHY,elevated dimer. TECHNIQUE: Imaging Protocol: Axial CT angiography was performed with multi-slice acquisition and mu lti-planar and/or 3D reconstructions. CONTRAST MATERIAL: Intravenous: Omnipaque 350 Contrast volume:61 mL COMPARISON: CT CT ABDOMEN PELVIS W from 03/11/2021 FINDINGS: Tracheobronchial tree: Patent where visualized. Pulmonary parenchyma: No consolidation or dominant measurable mass. No architectural distortion. Mild dependent atelectasis. There may be mild bronchial wall thickening. This can be seen with bronchit is. Pulmonary Arteries: No evidence of filling defect to suggest pulmonary emboli. Mediastinum and Henny: No dominant adenopathy or fluid collection. Small hiatal hernia. Visualized thyroid gland: Unremarkable. Pleura: No effusion or pneumothorax. Heart: The heart is not dilated. Mild coronary artery calcification. No pericardial effusion. Aorta: Thoracic aorta non-dilated. Atherosclerosis. No evidence of dissection. Upper abdomen: Unremarkable. Soft tissues: Unremarkable. Bones: Within normal limits for the patient's age. IMPRESSION: 1. No evidence of pulmonary embolism, thoracic aortic dissection or aneurysm. 2. Additional incidental findings as described above. RADIATION DOSE DELIVERED: 376.69mGy.cm Total DLP DATA REPOSITORY: All CT scans at this facility are submitted to the National Radiology Data Registry (NRDR) Dose Index Registry (DIR) with the [employer] (A[employer]). RADIATION OPTIMIZATION: All CT scans at this facility use at least one of these dose optimization te chniques: automated exposure control; mA and/or kV adjustment per patient size (includes targeted exa ms where dose is matched to clinical indication); or iterative reconstruction.
[2021-05-02] VITALS (14 sets, daily range): BP systolic 146–161; BP diastolic 64–68; PULSE 74–81; RESP 13–18; O2SAT 95–96
[2021-05-02] MEDS: Normal Saline Flush 10 ML SYR IVP (00:04)
[2021-05-02] MEDS: Omnipaque 350 MG/ML 100 ML BTL IJ (00:06)
--- NOTE | 2021-05-02 00:10 | DI.VRAD_ITS ---
PROCEDURE INFORMATION: Exam: CTA Chest With Contrast Exam date and time: 05/01/2021 11:13 PM Age: 70 years old Clinical indication: Other: HTN, tachy, elevated d dimer TECHNIQUE: Imaging protocol: Computed tomographic angiography of the chest with contrast. 3D rendering (Not supervised by radiologist): MIP and/or 3D reconstructed images were created by the technologist. Total images: 1833 Radiation optimization: All CT scans at this facility use at least one of these dose optimization techniques: automated exposure control; mA and/or kV adjustment per patient size (includes targeted exams where dose is matched to clinical indication); or iterative reconstruction. Contrast material: OMNIPAQUE 350; Contrast volume: 100 ml; Contrast route: INTRAVENOUS (IV); COMPARISON: CT ABDOMEN PELVIS W 03/11/2021 4:52 PM FINDINGS: Pulmonary arteries: The pulmonary arteries enhance appropriately with no evidence of pulmonary embolism. Aorta: The aorta enhances appropriately without evidence of dissection or aneurysm. No mediastinal hematoma. Moderate aortic ectasia/tortuosity and moderate calcific atherosclerosis. Thyroid: The visualized thyroid gland demonstrates no gross abnormality. Lungs: Moderate bilateral bronchial wall thickening consistent with bronchitis or bronchial edema, with no evidence of bronchiectasis or bronchial occlusions. No gross pulmonary infiltrates or edema pattern. Patchy hypoventilatory changes in the lung bases. Granulomatous calcification in the right middle lobe. No pulmonary mass lesions are identified. Pleural spaces: No pleural effusion. No pneumothorax. Heart: Heart size normal. No pericardial effusion. Mediastinal space: The esophagus is largely contracted but demonstrates no gross abnormality. Lymph nodes: No supraclavicular or axillary adenopathy. No mediastinal or hilar adenopathy. Kidneys and ureters: Mild bilateral symmetrical perinephric stranding, nonspecific. This is unchanged and may relate to chronic perirenal scarring. Bones/joints: No acute osseous abnormalities are identified. Soft tissues: The soft tissues of the chest wall demonstrate no acute abnormality. IMPRESSION: 1. No evidence of pulmonary embolism or aortic dissection. 2. Bilateral bronchial wall thickening suggesting bronchitis or bronchial edema. 3. Additional nonemergent findings detailed above. Dictated and Authenticated by: Camron Milian MD. Ordering:AWILDA Mcdaniels MD
--- NOTE | 2021-05-02 00:12 | NUR.NOTE ---
Ambulates to restroom with steady gait. Reports she drank a lot of water trying to get her blood pressure to lower. Has voided four times in ED. Denies dizziness.Nursing Note:
--- NOTE | 2021-05-02 00:30 | RT.EKG_ITS ---
APPROVED REPORT Exam: Resting ECG Reason for Exam: high blood pressure; repeat ECG Patient Location: E HR:75 bpm ECG Measurements Heart Rate 75 AXIS GA 187 P -4 QRSd 144 QRS -30 QT 470 T -17 QTc 527 Conclusion Sinus rhythm...normal P axis, V-rate 60- 99 Left bundle branch block...QRSd>120, broad/notched R I have reviewed and interpreted ECG and agree with software generated interpretation. There are no significant changes compared to prior EKG performed on 05/01/2021 at 21:40.
[2021-05-02 01:25] LABS: Troponin I < 0.05 ng/mL (<0.06)
== END 2021-05-02 01:40 | disposition home or self-care (01) ==
PROVIDERS: Physician Assistant; Emergency Provider Emergency Medicine; PCP Nurse Practitioner Family
DX: I10 Essential (primary) hypertension (principal); R00.0 Tachycardia, unspecified; R79.1 Abnormal coagulation profile; E20.9 Hypoparathyroidism, unspecified
CPT/HCPCS: 36415; 71275; 80053; 93005; 96374; 99285; 83735; 84443; 84484; 85025; 85379; 93010; 99284; J3490

== ENCOUNTER 2021-05-13 03:35 | Outpatient (CLI) | payer OTHER, SELFPAY ==
[2021-05-13 11:58] LABS: Source Nasal/Nares
[2021-05-13 15:22] LABS: COVID-19 PCR Negative (Negative)
== END 2021-05-13 03:36 | disposition home or self-care (01) ==
LOC: LBO 03:35
PROVIDERS: PCP Nurse Practitioner Family; Visit Provider Surgery
DX: Z20.822 Contact with and (suspected) exposure to COVID-19 (principal); Z01.818 Encounter for other preprocedural examination
CPT/HCPCS: 87635

== ENCOUNTER 2021-05-15 06:51 | Day surgery (SDC) | payer OTHER, SELFPAY ==
--- NOTE | 2021-05-14 17:07 | PDOC.DSDIS_ITS ---
Discharge Plan Disposition Patient Disposition: HOME Condition: Good Discharge Details Reason For Visit: colonoscopy Attending Provider: Gaby Conteh Primary Care Provider: Arabella Gambino Home Meds and New Rx's Prescriptions: Continued estradiol [Estrace] 0.01 % (0.1 mg/gram) cream 1 g vaginal .twice a week Qty: 42.5 RF: 3 eszopiclone [Lunesta] 3 mg tablet 3 mg PO QHS PRNRF: 0 loratadine-pseudoephedrine [Claritin-D 24 Hour] 10-240 mg tablet extended release 24 hr 1 tab PO DAILY RF: 0 ergocalciferol (vitamin D2) [Vitamin D2] 50,000 UNITS capsule 1 cap PO DIRECTED RF: 0 enalapril maleate 5 mg tablet 10 mg PO DAILY RF: 0 amlodipine 5 mg tablet 5 mg PO DAILY RF: 0 ibuprofen [Ibuprofen IB] 200 MG tablet 200 mg PO PRN PRNRF: 0 Discontinued polyethylene glycol 3350 17 gram/dose powder 238 g PO ONCE Qty: 238 RF: 0 bisacodyl [Dulcolax (bisacodyl)] 5 mg tablet,delayed release (DR/EC) 5 mg PO ONCE Qty: 4 RF: 0 Discharge Instructions Additional Instructions: DSU Colonoscopy Post- Op Instructions Instructions for Everyone who is given Anesthesia: For your safety, please do the following for the next twenty-four (24) hours: *Do Not operate a motor vehicle (car, truck, motorcycle, etc.) *Do Not drink alcoholic beverages or use any recreational drugs for the first 24 hours or while taking pain medications. The medications in your body may have a reaction that can be dangerous. *Do Not make any important decisions or sign any important papers. Findings: moderate diverticula external hemorrhoids Follow up: follow a high fiber diet and make sure you are moving your bowels on a regular basis and not straining. You do not require any further routine screening colonoscopies. However if you notice persistent changes in your bowels that lasts for more than 2-week such as pain or difficulty having a bowel movement, bleeding, or unexplained weight loss, please see your primary care physician for consideration of repeat co lonoscopy. Please follow-up with your PCP in the next 4 to 6-week for recheck on blood pressure. 1. No lifting over 20 pounds or strenuous activity for the first 24 hours after your procedure. After 24 hours there are no restrictions on your activity but you may feel fatigued for a few days. 2. After you arrive home you may have a light meal and return to your normal diet as you can tolerate it without feeling sick to your stomach. 3. You may have a bloated, gaseous feeling in your belly (abdomen) after a colonoscopy. Passing gas and belching will help. Walking or lying down on your left side with your knees flexed may relieve the discomfort. Call the office at [phone] (Office) or [phone] (Hospital) right away if you notice any of the following: a.Vomiting of blood or ?coffee ground stools?. b.Rectal bleeding 1Tbsp, blood clots or continuous bleeding. c.Severe belly (abdominal) pain. d.A hard distended belly (abdomen) and an inability to pass gas. 4. Please don?t expect to have a normal BM (bowel movement) for 2-3 days after your procedure. 5. If there are questions regarding the findings of your procedure, please contact your doctor 6. If you are unable to contact your doctor with a problem, contact the hospital at [phone]. 7. Continue all your regular medications unless directed otherwise. I understand the above instructions and have no questions. Signature of Patient or Adult Escort Name of Responsible Adult Escort Signature of Nurse Date/Time Stand Alone Forms: Carmina Morales (DSU) Activity:: see above Diet:: see above Discharge Orders Discharge Orders: Discharge Order (Routine); Ordered 05/14/21 Ordered By: Gaby Conteh DS: Diagnosis Discharge Diagnosis (1) Diverticula of colon: Status: Acute (2) External hemorrhoid: Status: Acute
--- NOTE | 2021-05-14 17:07 | W.COLOREPORT ---
Colonoscopy Report Date of procedure: 05/15/21 Pre-op diagnosis general: crc screen Post-op diagnosis procedure note: other (diverticula/E. hemorrhoids ) Surgeon: Gaby Conteh Anesthesia Type: General:No Airway Estimated blood loss (mL): 0 Pathology: none sent Complications: None Disposition: same day Prep: Miralax/Dulcolax Retraction Time: 8 mins Procedure Description: After informed consent was obtained the patient was taken to the procedure room and placed in a left decubitous position. Monitors were applied and a time out was done. The patients name, date of , procedure, allergies to medications and metal in their body was reviewed. The patient was then sedated. Once sedated and comfortable a rectal exam was done. External exam shows hemorrhoids- not thrombosed Internal exam revealed a normal sphincter tone and no palpable masses. The scope was then introduced and retrofelexed. old internal hemorrhoids tags were identified. The scope was then advanced to the cecum w/out difficulty. The TI and appendiceal orifice were identified. The prep was good. The scope was then slowly retracted over 8 minutes back into the rectum. There were no polyps or AVM's visulaized today. She does have moderate diverticula of the sigmoid colon. However they did extend all the way over to the right colon. There is no signs of active bleeding or disease today. No polyps are visualized on today's procedure. the scope was removed and the patient was woken up and taken back to Same day surgery in stable condition. The patient tolerated the procedure well and there were no immediate complications. Follow up: The patient does not require any further screening colonoscopy, unless they develop changes in bowel habits or other new gastrointestinal complaints.
[2021-05-15 07:08] VITALS: BP 165/99; PULSE 88; RESP 18; TEMP 36.3; O2SAT 97
[2021-05-15] MEDS: Lactated Ringers 1,000 ML 80 ML IV (07:28)
--- NOTE | 2021-05-15 07:28 | W.ANESPRE ---
General Info Date of Service Date Performed: 05/15/21 Height: 5 ft Weight: 63.9 kg Body Mass Index (BMI): 27.5 Surgical Procedure: Operation Date: 05/15/21 07:35 Proposed Procedures Side Surgeon p Colonoscopy Gaby Conteh, DO Actual Procedures Side Surgeon p Colonoscopy Left Gaby Conteh, DO Meds Allergies and Home Medications Allergies Allergy/AdvReac Type Severity Reaction Status Date / Time Sulfa (Sulfonamide Allergy Intermediate Swelling/Ed Unverified 05/12/21 14:59 Antibiotics) lou enviornmental Allergy Mild stuffiness,itchy Uncoded 05/12/21 14:59 eyes Home Medication Medication Instructions Recorded ergocalciferol (vitamin D2) 1 cap PO DIRECTED 03/30/15 [Vitamin D2] ibuprofen [Ibuprofen IB] 200 mg PO PRN PRN 03/23/17 eszopiclone 3 mg tablet 3 mg PO QHS PRN tab 06/26/20 loratadine-pseudoephedrine ER 10 1 tab PO DAILY 06/26/20 mg-240 mg tablet,extended [id number] estradiol 1 g VAGINAL .twice a week #42.5 g 11/05/20 enalapril maleate 10 mg PO DAILY 03/13/21 bisacodyl 5 mg tablet,delayed 5 mg PO ONCE #4 tab 04/10/21 release polyethylene glycol 3350 17 238 g PO ONCE #238 g 04/30/21 gram/dose oral powder amlodipine 5 mg PO DAILY 05/12/21 Current Visit Medications: Current Medications Generic Name Dose Route Start Last Admin Trade Name Freq PRN Reason Stop Dose Admin Hyoscyamine Sulfate 0.125 mg 05/14/21 17:05 Hyoscyamine 0.125 Mg Sl/Oral/Chew SL DIRECTED PRN Ringer's Solution 1,000 mls @ 80 mls/hr 05/15/21 06:00 IV 06/13/21 23:59 [facility]ION [facility] IV Miscellaneous Supplies 1 each 05/15/21 06:00 Iv Access IV 06/13/21 23:59 DIRECTED HANNAH Ondansetron HCl 4 mg 05/14/21 17:05 Ondansetron 4 Mg/2 Ml Vial IVP Q4H PRN PRN Nausea / Vomiting Sodium Chloride 0 ml 05/15/21 06:00 Normal Saline Flush 10 Ml Syr IV 06/13/21 23:59 PRN PRN Sodium Chloride 0 ml 05/15/21 06:00 Normal Saline 10 Ml Vial IJ 06/13/21 23:59 DIRECTED PRN Sterile Water 0 ml 05/15/21 06:00 Water,Injection,Sterile 10 Ml Vial IJ 06/13/21 23:59 DIRECTED PRN PFSH Active Problems Active Problems: Problem Status Onset Code Acute diverticulitis K57.92 Fever R50.9 Pessary maintenance Z46.89 Recurrent urinary tract infection N39.0 Prolapse of female pelvic organs N81.9 Hypoparathyroidism E20.9 HTN (hypertension) I10 Medical History Medical History Dysuria Eczema HTN (hypertension) Hypoparathyroidism Insomnia Pessary maintenance Prolapse of female pelvic organs Recurrent urinary tract infection Seborrheic keratosis Urinary tract infection Surgical History Surgical History History of colonoscopy (~01/2016) @ [facility] Dr. Caleb Morales S/P hysterectomy Tobacco Smoking/Tobacco Use Status: Never Alcohol Alcohol Intake: never Substance Use Substance use: Never Substance use type: does not use Vital Signs and Lab Results Vital Signs Most Recent Vital Signs in EMR: Most Recent Vital Signs Temp Pulse Resp BP Pulse Ox 36.3 C L 88 18 165/99 H 97 05/15/21 07:08 05/15/21 07:08 05/15/21 07:08 05/15/21 07:08 05/15/21 07:08 Lab Results Blood Type / Crossmatch: No Data to Display Complete Blood Count: White Blood Count 6.23 10^3/uL (4.4-10.8) 05/01/21 22:10 05/01/21 Red Blood Count 4.14 10^6/uL (3.93-5.22) 05/01/21 22:10 05/01/21 Hemoglobin 12.6 g/dL (11.2-15.7) 05/01/21 22:10 05/01/21 Hematocrit 37.4 % (36.0-46.0) 05/01/21 22:10 05/01/21 Platelet Count 312 10^3/uL (130-400) 05/01/21 22:10 05/01/21 Complete Metabolic Panel: Sodium Level 133 mmol/L (136-145) L 05/01/21 22:10 05/01/21 Potassium Level 3.5 mmol/L (3.5-5.1) 05/01/21 22:10 05/01/21 Chloride Level 98 mmol/L (98-107) 05/01/21 22:10 05/01/21 Carbon Dioxide Level 26.2 mmol/L (21.0-32.0) 05/01/21 22:10 05/01/21 Blood Urea Nitrogen 16 mg/dL (7-18) 05/01/21 22:10 05/01/21 Creatinine 0.8 mg/dL (0.55-1.02) 05/01/21 22:10 05/01/21 Estimated GFR/1.73 m2 >= 60.00 (mL/min/1.73m2) 05/01/21 22:10 05/01/21 Magnesium Level 1.9 mg/dL (1.8-2.4) 05/01/21 22:10 05/01/21 Calcium Level 8.6 mg/dL (8.5-10.1) 05/01/21 22:10 05/01/21 Albumin 3.5 g/dL (3.4-5.0) 05/01/21 22:10 05/01/21 Glucose Level 125 mg/dL (74-106) H 05/01/21 22:10 05/01/21 Liver Function Panel: Alanine Aminotransferase (ALT/SGPT) 29 U/L (14-59) 05/01/21 22:10 05/01/21 Aspartate Amino Transf (AST/SGOT) 18 U/L (15-37) 05/01/21 22:10 05/01/21 Coagulation Panel: D-Dimer 746 ng/mlFEU (<500) H 05/01/21 22:10 05/01/21 Cardiac Panel: Troponin I < 0.05 ng/mL (<0.06) 05/02/21 00:55 05/02/21 Arterial Blood Gas: No Data to Display Venous Blood Gas: No Data to Display Pancreas Panel: No Data to Display Thyroid Panel: Thyroid Stimulating Hormone (TSH) 3.63 uIU/mL (0.36-3.74) 05/01/21 22:10 05/01/21 Infectious Disease: Coronavirus (COVID-19)(PCR) Negative (Negative) 05/13/21 08:53 05/13/21 Coronavirus 2019 Source Nasal/Nares 05/13/21 08:53 05/13/21 Blood Cultures: No Data to Display Toxicology Panel: No Data to Display Imaging and Studies Imaging and Studies EKG Summary: Conclusion Sinus rhythm...normal P axis, V-rate 60- 99 Left bundle branch block...QRSd>120, broad/notched R I have reviewed and interpreted ECG and agree with software generated interpretation. There are no significant changes compared to prior EKG performed on 05/01/2021 at 21:40. 05/02/21 Anesthesia Assessment and Plan Anesthesia History Personal History: No History of Anesthesia Complications Family History: No Family History of Anesthesia Complications Exercise Tolerance Exercise Tolerance: Metabolic Equivalents>4 Pertinent Negatives Pertinent Negatives: No Symptoms of GERD, No Major Cardiovascular Symptoms or Complaints, No Major Pulmonary Symptoms or Complaints and No History of CVA/TIA Cardiac & Pulmonary Exam Cardiac Exam: Normal S1/S2 Heart Sounds Pulmonary Exam: Clear Bilateral Breath Sounds Airway Exam Known Difficult Airway: No Mallampati Class: 3 Mouth Opening: Normal (> 3cm) Thyromental Distance: Greater than 3 cm Neck Range of Motion: Full ROM Neck Circumference: Normal Teeth Condition: Normal Dentition ASA Classification ASA Score: ASA 2 Emergency Case?: No NPO Status NPO Status: NPO Clears >2 hours, Solids >8 hours Anesthesia Plan Resuscitation Status: Full Code Anesthesia Technique: General Anesthesia Airway Planned: Natural Airway Monitors Used: Standard Monitors
[2021-05-15 07:32] VITALS: BMI 27.5
--- NOTE | 2021-05-15 08:11 | W.ANESPOSTOP ---
Postoperative Evaluation Date, Time and Location Date Performed: 05/15/21 Time Performed: 08:11 Patient Location: Day Surgery Unit Vital Signs Most Recent Imported Vital Signs: Most Recent Vital Signs Temp Pulse Resp BP Pulse Ox 36.3 C L 88 18 165/99 H 97 05/15/21 07:08 05/15/21 07:08 05/15/21 07:08 05/15/21 07:08 05/15/21 07:08 Pain Score Most Recent Pain Score: Most Recent Pain Score Pain Level 0 05/15/21 07:08 Assessment Mental Status: Awake (Alert & Oriented to Patient Baseline) Airway and Respiratory Function: Patent airway with normal (patient baseline) respiratory exam Cardiovascular Function: Hemodynamically Stable Hydration Status: Adequately Hydrated Nausea & Vomiting: No Nausea or Vomiting Pain: Pt. Denies Any Pain Peripheral Nerve Block: Patient did not receive a nerve block
[2021-05-15 08:31] VITALS: BP 136/75; PULSE 61; RESP 16; TEMP 36; O2SAT 99
== END 2021-05-15 08:47 | disposition home or self-care (01) ==
PROVIDERS: PCP Nurse Practitioner Family; Visit Provider Surgery
PROC: 0DJD8ZZ Inspection of Lower Intestinal Tract, Via Natural or Artificial Opening Endoscopic (ICD-10-PCS; CPT 45378; principal; 2021-05-15 07:30)
DX: Z12.11 Encounter for screening for malignant neoplasm of colon (principal); K57.30 Diverticulosis of large intestine without perforation or abscess without bleeding; I10 Essential (primary) hypertension; K64.4 Residual hemorrhoidal skin tags
CPT/HCPCS: G0121; J2001

== ENCOUNTER 2021-08-13 14:51 | Outpatient (REF) | payer OTHER, SELFPAY | END 2021-08-13 14:52 | disposition home or self-care (01) | LOC: LBN 14:51 | PROVIDERS: PCP Nurse Practitioner Family; Visit Provider Nurse Practitioner Gerontology | DX: N39.0 Urinary tract infection, site not specified (principal) | CPT/HCPCS: 87077; 87086; 87186 ==

== ENCOUNTER 2021-11-12 01:12 | Outpatient (CLI) | payer OTHER, SELFPAY ==
--- NOTE | 2021-11-12 12:00 | DI.MAMMO_ITS ---
Exam(s) MAMMO SCREENING EXAM: MAMMO SCREENING CLINICAL HISTORY: SCREENING, Z12.39 TECHNIQUE: Mammograms were interpreted according to the usual protocol including computer analysis w [employer] CAD system, tomosynthesis and C-view imaging. COMPARISON: FINDINGS: The breasts are of moderate density with fairly symmetrical distribution of fibroglandular tissue. N o dominant mass or clumped microcalcification is identified in either breast. The current examinatio n is compared with previous examinations including July 2020 and there has been no gross interval change in appearance in comparison with the prior studies. IMPRESSION: No specific evidence of malignancy at this time. Routine screening examinations are suggested at yea rly intervals due to the family history of breast carcinoma. BI-RADS Category 1 - Negative Breast Density - Category B - Scattered areas of fibroglandular density
== END 2021-11-12 01:32 ==
PROVIDERS: PCP Nurse Practitioner Family; Visit Provider Nurse Practitioner Family
DX: Z12.31 Encounter for screening mammogram for malignant neoplasm of breast (principal)
CPT/HCPCS: 77063; 77067

== ENCOUNTER 2023-01-03 06:21 | Day surgery (SDC) | payer OTHER, SELFPAY ==
[2023-01-03] MEDS: Tropicam./Phenyleph. (1/2.5%) 5 ML BTL OD ×3 (06:51→07:04)
[2023-01-03 06:52] VITALS: BP 156/74; PULSE 89; RESP 16; TEMP 36.2; O2SAT 96
--- NOTE | 2023-01-03 07:04 | W.ANESPRE ---
General Info Date of Service Date Performed: 01/03/23 Height: 5 ft 0.5 in Weight: 68.1 kg Body Mass Index (BMI): 28.8 Surgical Procedure: Operation Date: 01/03/23 07:40 Proposed Procedure Side Surgeon p Cataract Extraction with IOL Implant Right Mahesh Fuller MD Meds Allergies and Home Medications Allergies Allergy/AdvReac Type Severity Reaction Status Date / Time Sulfa (Sulfonamide Allergy Intermediate Swelling/Ed Verified 01/03/23 06:43 Antibiotics) lou enviornmental Allergy Mild stuffiness,itchy Uncoded 01/03/23 06:43 eyes Home Medication Medication Instructions Recorded ergocalciferol (vitamin D2) 1,250 1 cap PO DIRECTED 03/30/15 mcg (50,000 unit) capsule (Vitamin D2) ibuprofen 200 mg tablet (Ibuprofen 200 mg PO PRN PRN 03/23/17 IB) eszopiclone 3 mg tablet (Lunesta) 3 mg PO QHS PRN 06/26/20 estradiol 0.01% (0.1 mg/gram) 1 g vaginal .twice a week #42.5 11/05/20 vaginal cream (Estrace) grams enalapril maleate 5 mg tablet 10 mg PO DAILY 03/13/21 amlodipine 5 mg tablet 5 mg PO DAILY 05/12/21 levocetirizine 5 mg tablet (Xyzal) 5 mg PO DAILY PRN 06/19/21 Echinacea purp aerial part ext 125 250 mg PO DAILY 12/30/22 mg capsule ascorbic acid (vitamin C) 500 mg 1,000 mg PO DAILY 12/30/22 tablet (Vitamin C) cinnamon bark 500 mg capsule 1,000 mg PO DAILY 12/30/22 (Cinnamon) coQ10 (ubiquinol) 100 mg capsule 100 mg PO DAILY 12/30/22 (CoQmax Ubiquinol) cranberry extract 500 mg capsule 500 mg PO DAILY 12/30/22 (Cranberry Concentrate) multivitamin 1 tab PO DAILY 12/30/22 Lactobacillus acidophilus 10 10 cell PO DIRECTED 12/31/22 billion cell capsule (Probiotic) diphenhydramine 25 1 tab PO Q4H PRN 01/03/23 mg-acetaminophen 500 mg tablet (Tylenol PM Extra Strength) Current Visit Medications: Current Medications Generic Name Dose Route Start Last Admin Trade Name Freq PRN Reason Stop Dose Admin Acetaminophen 1,000 mg 01/03/23 06:00 Acetaminophen 500 Mg Tab PO Q4H PRN PRN Miscellaneous Medication 0 ml 01/03/23 06:00 01/03/23 06:58 Tropicam./Phenyleph. 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 Caleb Morales History of colonoscopy (~05/15/21) S/P hysterectomy ~2010. with bladder suspension. Tobacco Smoking/Tobacco Use Status: Never Alcohol Alcohol Intake: never Substance Use Substance use: Never Substance use type: does not use Vital Signs and Lab Results Vital Signs Most Recent Vital Signs in EMR: Most Recent Vital Signs Temp Pulse Resp BP Pulse Ox 36.2 C L 89 16 156/74 H 96 01/03/23 06:52 01/03/23 06:52 01/03/23 06:52 01/03/23 06:52 01/03/23 06:52 Lab Results Blood Type / Crossmatch: No Data to Display Complete Blood Count: No Data to Display Complete Metabolic Panel: No Data to Display Liver Function Panel: No Data to Display Coagulation Panel: No Data to Display Cardiac Panel: No Data to Display Arterial Blood Gas: No Data to Display Venous Blood Gas: No Data to Display Pancreas Panel: No Data to Display Thyroid Panel: No Data to Display Infectious Disease: No Data to Display Blood Cultures: No Data to Display Toxicology Panel: No Data to Display Imaging and Studies Imaging and Studies Study information below may be from another EMR and interpreted by another provider. Please see original notes in EMR for more complete details. EKG Summary: Conclusion Sinus rhythm...normal P axis, V-rate 60- 99 Left bundle branch block...QRSd>120, broad/notched R I have reviewed and interpreted ECG and agree with software generated interpretation. There are no significant changes compared to prior EKG performed on 05/01/2021 at 21:40. 05/02/21 Anesthesia Assessment and Plan Anesthesia History Personal History: No History of Anesthesia Complications Family History: No Family History of Anesthesia Complications Exercise Tolerance Exercise Tolerance: Metabolic Equivalents>4 Pertinent Negatives Pertinent Negatives: No Symptoms of GERD Cardiac & Pulmonary Exam Cardiac Exam: Normal S1/S2 Heart Sounds Pulmonary Exam: Clear Bilateral Breath Sounds Implantable Cardiac Device Does patient have a Pacemaker or an ICD?: No Airway Exam Known Difficult Airway: No Mallampati Class: 3 Mouth Opening: Normal (> 3cm) Thyromental Distance: Greater than 3 cm Neck Range of Motion: Full ROM Neck Circumference: Normal Teeth Condition: Normal Dentition ASA Classification ASA Score: ASA 2 Emergency Case?: No NPO Status NPO Status: NPO Clears >2 hours, Solids >8 hours Anesthesia Plan Resuscitation Status: Full Code Anesthesia Technique: MAC Anesthesia Airway Planned: Natural Airway Monitors Used: Standard Monitors
[2023-01-03 07:22] VITALS: BMI 28.8
[2023-01-03] MEDS: Tetracaine 0.5% 4 ML BTL OD (07:29)
[2023-01-03] MEDS: Povidone-Iodine Ophth 30 ML BTL (07:30)
[2023-01-03] MEDS: Balanced Salt Soln.-PLUS 500 ML BAG (07:36)
[2023-01-03] MEDS: Duovisc Viscoelastic System EACH 1 EACH (07:36)
[2023-01-03] MEDS: Lidocaine 1% Pres-Free 5 ML VIAL (07:37)
[2023-01-03] MEDS: Phenylephrine/Lidocaine (15/10) MG/ML 1 ML VIAL (07:39)
[2023-01-03 07:56] VITALS: BP 136/65; PULSE 78; RESP 18; TEMP 36.3; O2SAT 97
--- NOTE | 2023-01-03 07:56 | W.PM.DSUDISC ---
Date of service: 01/03/23 Time of Service: 07:56 Discharge Plan Disposition Patient Disposition: Home Discharge Details Attending Provider: Mahesh Fuller Primary Care Provider: Arabella Gambino Home Meds and New Rx's Prescriptions: No Action levocetirizine [Xyzal] 5 mg tablet 5 mg PO DAILY PRN estradiol [Estrace] 0.01 % (0.1 mg/gram) cream 1 g vaginal .twice a week Qty: 42.5 3RF Rx Instructions: Note dosage change. Apply a pea sized vaginally 2x a week. eszopiclone [Lunesta] 3 mg tablet 3 mg PO QHS PRN ergocalciferol (vitamin D2) [Vitamin D2] 50,000 UNITS capsule 1 cap PO DIRECTED enalapril maleate 5 mg tablet 10 mg PO DAILY amlodipine 5 mg tablet 5 mg PO DAILY Patient Comments: TAKE 1 TABLET BY MOUTH EVERY DAY multivitamin Tablet 1 tab PO DAILY ascorbic acid (vitamin C) [Vitamin C] 500 mg Tablet 1,000 mg PO DAILY cranberry extract [Cranberry Concentrate] 500 mg Capsule 500 mg PO DAILY cinnamon bark [Cinnamon] 500 mg Capsule 1,000 mg PO DAILY Echinacea purp aerial part ext 125 mg Capsule 250 mg PO DAILY coQ10 (ubiquinol) [CoQmax Ubiquinol] 100 mg Capsule 100 mg PO DAILY Probiotic 10 billion cell Capsule 10 cell PO DIRECTED diphenhydramine-acetaminophen [Tylenol PM Extra Strength] 25-500 mg Tablet 1 tab PO Q4H PRN Rx Instructions: administer while awake ibuprofen [Ibuprofen IB] 200 MG tablet 200 mg PO PRN PRN Discharge Instructions Stand Alone Forms: Post-op Topical Cataract, Carmina Morales ([facility]U) Discharge Orders Discharge Orders: Discharge Order (Routine); Ordered 01/03/23 Ordered By: Mahesh Fuller DS: Diagnosis Discharge Diagnosis (1) Cortical age-related cataract, right eye: Status: Resolved (2) Nuclear age-related cataract, right eye: Status: Resolved
--- NOTE | 2023-01-03 07:56 | W.PM.OP ---
Date of service: 01/03/23 Time of Service: 07:57 Operative Note Operative Note DATE OF PROCEDURE: 01/03/23 PRE-OP DIAGNOSIS: Nuclear/cortical cataract, right eye POST-OP DIAGNOSIS: same PROCEDURE: Cataract extraction using phacoemulsification with intraocular lens implant, right eye SURGEON: Mahesh Fuller ANESTHESIA TYPE: Local By Surgeon and MAC Refer to Anesthesia Record ESTIMATED BLOOD LOSS: 0 PATHOLOGY: none sent COMPLICATIONS: None Patient was transported to: same day Patient's condition: stable Implants: R[employer] Ravin Tecnis Eyhance [id number] Indications: Progressive visual loss due to cataract, right eye Procedure Description: CATARACT SURGERY OPERATIVE REPORT PREOPERATIVE DIAGNOSIS: 1. Nuclear/cortical cataract, right eye POSTOPERATIVE DIAGNOSIS: Same OPERATION: 1. Cataract extraction using phacoemulsification with posterior chamber intraocular lens implant, right eye. IOL: IOL Improvement Manager/Model: Ravin [employer] Ravin Tecnis Eyhance [id number] IOL Power: + 22.0 diopters IOL Serial Number: [id number] Optic Diameter: 6.0mm Haptic/Overall Diameter: 13.0mm PHACO INFO: Alfonso Reebeeurion Vision System with OZil and Active Fluidics Cumulative Dispersed Energy (CDE): 6.41 seconds SURGEON: Mahesh Fuller MD, ROBY ANESTHESIA: Monitored Anesthesia Care (MAC), with local sub-tenon's anesthetic infiltration COMPLICATIONS: None SPECIMENS: None INDICATIONS FOR PROCEDURE: The patient is a 72-year-old lady with history of diminished visual acuity in her right eye secondary to the development of nuclear/cortical cataract. She is significantly symptomatic that she desires cataract surgery and attempt to improve and maximize her vision. The option of cataract surgery was offered to the patient and she wished to proceed. See office notes for detailed information. PROCEDURE: The correct surgical eye was identified and marked as the right eye and the pupil was dilated in the preoperative area using mydriatics and cycloplegics. The dilated pupil size was 7.0 mm. The patient elected to proceed without oral sedation. The patient was brought to the operating room where cardiopulmonary monitoring was instituted and surgical time-out was performed, confirming the correct operative eye and IOL power. Topical anesthesia was administered and ophthalmic povidone-iodine 5% was instilled into the conjunctival fornices. Lidocaine gel was applied to the cornea and the jade-ocular area was prepped with Betadine 10% solution and draped in the usual sterile fashion for intraocular surgery, including an aperture drape. A Tegaderm transparent film dressing was cut in half and used to cover the lashes and lid margins. Care was taken to sequester the lashes and lid margins under the Tegaderm dressing. A lid speculum was placed between the lids of the operative eye and the Alfonso LuxOR Revalia operating microscope was maneuvered into position. Debra scissors were then used to make a conjunctival buttonhole approximately 6mm posterior to the limbus in the inferonasal quadrant. Blunt dissection was carried out to expose bare sclera, and a blunt-tipped sub-tenon?s anesthesia cannula was introduced and passed posteriorly along the globe where non-preserved plain lidocaine was injected into posterior sub-Tenon?s space. A sideport knife was used to make a paracentesis port inferotemporally. Intraocular phenylephrine/lidocaine was injected into the anterior chamber. The anterior chamber was filled with viscoelastic. A keratome knife was used to construct a 2-plane near-clear corneal tunnel extending 2.0mm into clear cornea superiortemporally. A flap was raised on the anterior capsule and capsulorhexis forceps were used to complete a continuous curvilinear capsulorhexis of 5.0 mm. Balanced salt solution was then used to perform cortical cleaving hydrodissection and nuclear hydrodelineation until the lens could be freely rotated within the capsular bag. The lens nucleus was then disassembled and removed within the capsular bag and iris plane using phacoemulsification. Residual cortical material was removed using the I/A handpiece. The posterior capsule was carefully polished to remove as much residual lens epithelial cells as safely possible. The capsular bag was then inflated and the anterior chamber deepened with viscoelastic. The lens implant described above was inserted into the capsular bag using the Ravin and Jenny Simplicity pre-loaded injector. A Kuglen hook was used to dial the IOL into position. Residual viscoelastic was then removed first from posterior to the IOL, then from the anterior chamber using the I/A handpiece. The lens implant was noted to center nicely within the capsular bag. The incisions were stromally hydrated, and the anterior chamber was reformed using BSS. Then 0.5cc of moxifloxacin 1.0mg/ml were injected into the capsular bag and anterior chamber. The incisions were checked with a Weck spear and found to be secure. Several drops of ophthalmic povidone-iodine 5% were then applied to the eye followed by two drops of Imprimis combination prednisolone/moxifloxacin/nepafenac solution. The drapes were removed and a clear plastic protective eye shield was placed over the eye. The patient was then returned to Same Day Surgery in stable condition.
--- NOTE | 2023-01-03 08:13 | W.ANESPOSTOP ---
Postoperative Evaluation Date, Time and Location Date Performed: 01/03/23 Time Performed: 08:07 Patient Location: Day Surgery Unit Vital Signs Most Recent Imported Vital Signs: Most Recent Vital Signs Temp Pulse Resp BP Pulse Ox 36.3 C L 78 18 136/65 97 01/03/23 07:56 01/03/23 07:56 01/03/23 07:56 01/03/23 07:56 01/03/23 07:56 Pain Score Most Recent Pain Score: Most Recent Pain Score Pain Level 0 01/03/23 07:56 Assessment Mental Status: Awake (Alert & Oriented to Patient Baseline) Airway and Respiratory Function: Patent airway with normal (patient baseline) respiratory exam Cardiovascular Function: Hemodynamically Stable Hydration Status: Adequately Hydrated Nausea & Vomiting: No Nausea or Vomiting Pain: Pt. Denies Any Pain Peripheral Nerve Block: Patient did not receive a nerve block
== END 2023-01-03 08:23 | disposition home or self-care (01) ==
LOC: SUR 06:21
PROVIDERS: PCP Nurse Practitioner Family; Visit Provider Ophthalmology
PROC: (CPT 66984; principal; 2023-01-03 07:30)
DX: H25.011 Cortical age-related cataract, right eye (principal); H25.11 Age-related nuclear cataract, right eye; I10 Essential (primary) hypertension
CPT/HCPCS: 66984; V2632

== ENCOUNTER 2023-01-17 11:25 | Day surgery (SDC) | payer OTHER, SELFPAY ==
[2023-01-17 12:08] VITALS: BP 130/74; PULSE 79; RESP 18; TEMP 36.3; O2SAT 96
[2023-01-17] MEDS: Tropicam./Phenyleph. (1/2.5%) 5 ML BTL OS ×3 (12:19→12:29)
[2023-01-17 12:47] VITALS: BMI 28.8
--- NOTE | 2023-01-17 12:47 | W.ANESPRE ---
General Info Date of Service Date Performed: 01/17/23 Height: 5 ft 0.5 in Weight: 68.1 kg Body Mass Index (BMI): 28.8 Surgical Procedure: Operation Date: 01/17/23 13:40 Proposed Procedure Side Surgeon p Cataract Extraction with IOL Implant Left Mahesh Fuller MD Meds Allergies and Home Medications Allergies Allergy/AdvReac Type Severity Reaction Status Date / Time Sulfa (Sulfonamide Allergy Intermediate Swelling/Ed Verified 01/17/23 12:04 Antibiotics) lou enviornmental Allergy Mild stuffiness,itchy Uncoded 01/17/23 12:04 eyes Home Medication Medication Instructions Recorded ergocalciferol (vitamin D2) 1,250 1 cap PO DIRECTED 03/30/15 mcg (50,000 unit) capsule (Vitamin D2) ibuprofen 200 mg tablet (Ibuprofen 200 mg PO PRN PRN 03/23/17 IB) eszopiclone 3 mg tablet (Lunesta) 3 mg PO QHS PRN 06/26/20 estradiol 0.01% (0.1 mg/gram) 1 g vaginal .twice a week #42.5 11/05/20 vaginal cream (Estrace) grams enalapril maleate 5 mg tablet 10 mg PO DAILY 03/13/21 amlodipine 5 mg tablet 5 mg PO DAILY 05/12/21 levocetirizine 5 mg tablet (Xyzal) 5 mg PO DAILY PRN 06/19/21 Echinacea purp aerial part ext 125 250 mg PO DAILY 12/30/22 mg capsule ascorbic acid (vitamin C) 500 mg 1,000 mg PO DAILY 12/30/22 tablet (Vitamin C) cinnamon bark 500 mg capsule 1,000 mg PO DAILY 12/30/22 (Cinnamon) coQ10 (ubiquinol) 100 mg capsule 100 mg PO DAILY 12/30/22 (CoQmax Ubiquinol) cranberry extract 500 mg capsule 500 mg PO DAILY 12/30/22 (Cranberry Concentrate) multivitamin 1 tab PO DAILY 12/30/22 Lactobacillus acidophilus 10 10 cell PO DIRECTED 12/31/22 billion cell capsule (Probiotic) diphenhydramine 25 1 tab PO Q4H PRN 01/03/23 mg-acetaminophen 500 mg tablet (Tylenol PM Extra Strength) oxyquinoline 0.025 %-sodium lauryl 1 applic vaginal .twice weekly 01/10/23 sulfate 0.01 % vaginal gel #113.4 grams Current Visit Medications: Current Medications Generic Name Dose Route Start Last Admin Trade Name Freq PRN Reason Stop Dose Admin Acetaminophen 1,000 mg 01/17/23 06:00 Acetaminophen 500 Mg Tab PO 02/16/23 05:59 Q4H PRN PRN Balanced Salt Solution 500 ml 01/17/23 06:00 Balanced Salt Soln.-Plus 500 Ml Bag OP 02/16/23 05:59 DIRECTED [facility] Miscellaneous Medication 0 ml 01/17/23 06:00 Prednisolone 1%, Moxifloxacin 0.5%, Nepafenac 0.1% 5ml Btl OS 02/16/23 05:59 DIRECTED [facility] Miscellaneous Medication 0 ml 01/17/23 06:00 01/17/23 12:29 Tropicam./Phenyleph. 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 Caleb Morales History of colonoscopy (~05/15/21) S/P hysterectomy ~2010. with bladder suspension. Tobacco Smoking/Tobacco Use Status: Never Alcohol Alcohol Intake: never Substance Use Substance use: Never Substance use type: does not use Vital Signs and Lab Results Vital Signs Most Recent Vital Signs in EMR: Most Recent Vital Signs Temp Pulse Resp BP Pulse Ox 36.3 C L 79 18 130/74 96 01/17/23 12:08 01/17/23 12:08 01/17/23 12:08 01/17/23 12:08 01/17/23 12:08 Lab Results Blood Type / Crossmatch: No Data to Display Complete Blood Count: No Data to Display Complete Metabolic Panel: No Data to Display Liver Function Panel: No Data to Display Coagulation Panel: No Data to Display Cardiac Panel: No Data to Display Arterial Blood Gas: No Data to Display Venous Blood Gas: No Data to Display Pancreas Panel: No Data to Display Thyroid Panel: No Data to Display Infectious Disease: No Data to Display Blood Cultures: No Data to Display Toxicology Panel: No Data to Display Imaging and Studies Imaging and Studies Study information below may be from another EMR and interpreted by another provider. Please see original notes in EMR for more complete details. EKG Summary: Conclusion Sinus rhythm...normal P axis, V-rate 60- 99 Left bundle branch block...QRSd>120, broad/notched R I have reviewed and interpreted ECG and agree with software generated interpretation. There are no significant changes compared to prior EKG performed on 05/01/2021 at 21:40. 05/02/21 Anesthesia Assessment and Plan Anesthesia History Personal History: No History of Anesthesia Complications Family History: No Family History of Anesthesia Complications Exercise Tolerance Exercise Tolerance: Metabolic Equivalents>4 Pertinent Negatives Pertinent Negatives: No Symptoms of GERD Cardiac & Pulmonary Exam Cardiac Exam: Normal S1/S2 Heart Sounds Pulmonary Exam: Clear Bilateral Breath Sounds Implantable Cardiac Device Does patient have a Pacemaker or an ICD?: No Airway Exam Known Difficult Airway: No Mallampati Class: 3 Mouth Opening: Normal (> 3cm) Thyromental Distance: Greater than 3 cm Neck Range of Motion: Full ROM Neck Circumference: Normal Teeth Condition: Normal Dentition ASA Classification ASA Score: ASA 2 Emergency Case?: No NPO Status NPO Status: NPO Clears >2 hours, Solids >8 hours Anesthesia Plan Resuscitation Status: Full Code Anesthesia Technique: MAC Anesthesia Airway Planned: Natural Airway Monitors Used: Standard Monitors
[2023-01-17] MEDS: Tetracaine 0.5% 4 ML BTL OS (13:09)
[2023-01-17] MEDS: Povidone-Iodine Ophth 30 ML BTL (13:09)
[2023-01-17] MEDS: Balanced Salt Soln.-PLUS 500 ML BAG OP (13:15)
[2023-01-17] MEDS: Duovisc Viscoelastic System EACH 1 EACH (13:15)
[2023-01-17] MEDS: Phenylephrine/Lidocaine (15/10) MG/ML 1 ML VIAL (13:16)
[2023-01-17] MEDS: Lidocaine 1% Pres-Free 5 ML VIAL (13:16)
[2023-01-17 13:30] VITALS: BP 149/72; PULSE 71; RESP 18; TEMP 36.5; O2SAT 97
--- NOTE | 2023-01-17 13:35 | ROE_ITS ---
Date of service: 01/17/23 Time of Service: 13:35 Operative Note Operative Note DATE OF PROCEDURE: 01/17/23 PRE-OP DIAGNOSIS: Nuclear/cortical cataract, left eye POST-OP DIAGNOSIS: same PROCEDURE: Cataract extraction using phacoemulsification with intraocular lens implant, left eye SURGEON: Mahesh Fuller ANESTHESIA TYPE: Local By Surgeon and MAC Refer to Anesthesia Record PATHOLOGY: none sent COMPLICATIONS: None Patient was transported to: same day Patient's condition: stable Implants: Ravin and Ravin Tecnis Eyhance [id number] Indications: Progressive decreased vision due to cataract, left eye Procedure Description: CATARACT SURGERY OPERATIVE REPORT PREOPERATIVE DIAGNOSIS: 1. Nuclear/cortical cataract, left eye POSTOPERATIVE DIAGNOSIS: Same OPERATION: 1. Cataract extraction using phacoemulsification with posterior chamber intraocular lens implant, left eye. IOL: IOL Tanning Drum Operator/Model: Ravin & Ravin Tecnis Eyhance DIB00 IOL Power: + 20.0 diopters IOL Serial Number: [id number] Optic Diameter: 6.0 mm Haptic/Overall Diameter: 13.0 mm PHACO INFO: AlfonsoDoubleRecall Vision System with OZil and Active Fluidics Cumulative Dispersed Energy (CDE): 4.99 seconds SURGEON: Mahesh Fuller MD, ROBY ANESTHESIA: Monitored A [facility] (MAC), with local sub-tenon's anesthetic infiltration COMPLICATIONS: None SPECIMENS: None INDICATIONS FOR PROCEDURE: The patient is a 72-year-old lady with history of diminished visual acuity in her left eye secondary to the development of nuclear/cortical cataract. She has already undergone cataract surgery in her right eye and is doing well postoperatively. She now presents for cataract surgery in the left eye. See office notes for detailed information. PROCEDURE: The correct surgical eye was identified and marked as the left eye and the pupil was dilated in the preoperative area using mydriatics and cycloplegics. The dilated pupil size was 7.0 mm. The patient elected to proceed without oral sedation. The patient was brought to the operating room where cardiopulmonary monitoring was instituted and surgical time-out was performed, confirming the correct operative eye and IOL power. Topical anesthesia was administered and ophthalmic povidone-iodine 5% was instilled into the conjunctival fornices. The jade-ocular area was prepped with Betadine 10% solution and draped in the usual sterile fashion for intraocular surgery, including an aperture drape. A Tegaderm transparent film dressing was cut in half and used to cover the lashes and lid margins. Care was taken to sequester the lashes and lid margins under the Tegaderm dressing. A lid speculum was placed between the lids of the operative eye and the Alfonso LuxOR Revalia operating microscope was maneuvered into position. Debra scissors were then used to make a conjunctival buttonhole approximately 6mm posterior to the limbus in the inferonasal quadrant. Blunt dissection was carried out to expose bare sclera, and a blunt-tipped sub-tenon?s anesthesia cannula was introduced and passed posteriorly along the globe where non- preserved plain lidocaine was injected into posterior sub-Tenon?s space. A sideport knife was used to make a paracentesis port. Intraocular phenylephrine/lidocaine was injected int the anterior chamber.. The anterior chamber was filled with viscoelastic. A keratome knife was used to construct a 2-plane near-clear corneal tunnel extending 2.0mm into clear cornea. A flap was raised on the anterior capsule and capsulorhexis forceps were used to complete a continuous curvilinear capsulorhexis of 5.5 mm. Balanced salt solution was then used to perform cortical cleaving hydrodissection and nuclear hydrodelineation until the lens could be freely rotated within the capsular bag. The lens nucleus was then disassembled and re moved within the capsular bag and iris plane using phacoemulsification. Residual cortical material was removed using the irrigation/aspiration handpiece. The posterior capsule was carefully polished to remove as much residual lens epithelial cells as safely possible. The capsular bag was then inflated and the anterior chamber deepened with viscoelastic. The lens implant described above was inserted into the capsular bag using the Ravin and Ravin Simplicity pre-loaded injector. A Kuglen hook was used to dial the IOL into position. Residual viscoelastic was then removed first from posterior to the IOL, then from the anterior chamber using the I/A handpiece. The lens implant was noted to center nicely within the capsular bag. The incisions were stromally hydrated, and the anterior chamber was reformed using BSS. Then 0.5cc of moxifloxacin 1.0mg/ml were injected into the capsular bag and anterior chamber. The incisions were checked with a Weck spear and found to be secure. Several drops of ophthalmic povidone-iodine 5% were then applied to the eye followed by two drops of Imprimis combination prednisolone/moxifloxacin/nepafenac solution. The drapes were removed and a clear plastic protective eye shield was placed over the eye. The patient was then returned to Same Day Surgery in stable condition.
--- NOTE | 2023-01-17 13:35 | W.PM.DSUDISC ---
Date of service: 01/17/23 Time of Service: 13:35 Discharge Plan Disposition Patient Disposition: Home Discharge Details Attending Provider: Mahesh Fuller Primary Care Provider: Arabella Gambino Home Meds and New Rx's Prescriptions: No Action levocetirizine [Xyzal] 5 mg tablet 5 mg PO DAILY PRN estradiol [Estrace] 0.01 % (0.1 mg/gram) cream 1 g vaginal .twice a week Qty: 42.5 3RF Rx Instructions: Note dosage change. Apply a pea sized vaginally 2x a week. oxyquinoline-sod.lauryl sulfat 0.025-0.01 % gel 1 applic vaginal .twice weekly Qty: 113.4 3RF eszopiclone [Lunesta] 3 mg tablet 3 mg PO QHS PRN ergocalciferol (vitamin D2) [Vitamin D2] 50,000 UNITS capsule 1 cap PO DIRECTED enalapril maleate 5 mg tablet 10 mg PO DAILY amlodipine 5 mg tablet 5 mg PO DAILY Patient Comments: TAKE 1 TABLET BY MOUTH EVERY DAY multivitamin Tablet 1 tab PO DAILY ascorbic acid (vitamin C) [Vitamin C] 500 mg Tablet 1,000 mg PO DAILY cranberry extract [Cranberry Concentrate] 500 mg Capsule 500 mg PO DAILY cinnamon bark [Cinnamon] 500 mg Capsule 1,000 mg PO DAILY Echinacea purp aerial part ext 125 mg Capsule 250 mg PO DAILY coQ10 (ubiquinol) [CoQmax Ubiquinol] 100 mg Capsule 100 mg PO DAILY Patient Comments: pt states she has not taken this in a while Probiotic 10 billion cell Capsule 10 cell PO DIRECTED diphenhydramine-acetaminophen [Tylenol PM Extra Strength] 25-500 mg Tablet 1 tab PO Q4H PRN Rx Instructions: administer while awake ibuprofen [Ibuprofen IB] 200 MG tablet 200 mg PO PRN PRN Discharge Instructions Stand Alone Forms: Post-op Topical Cataract, Press Ganey (DSU) Discharge Orders Discharge Orders: Discharge Order (Routine); Ordered 01/17/23 Ordered By: Mahesh Fuller DS: Diagnosis Discharge Diagnosis (1) Cortical age-related cataract, left eye: Status: Resolved (2) Nuclear age-related cataract, left eye: Status: Resolved
--- NOTE | 2023-01-17 13:43 | W.ANESPOSTOP ---
Postoperative Evaluation Date, Time and Location Date Performed: 01/17/23 Time Performed: 13:43 Patient Location: Day Surgery Unit Vital Signs Most Recent Imported Vital Signs: Most Recent Vital Signs Temp Pulse Resp BP Pulse Ox 36.3 C L 79 18 130/74 96 01/17/23 12:08 01/17/23 12:08 01/17/23 12:08 01/17/23 12:08 01/17/23 12:08 Pain Score Most Recent Pain Score: Most Recent Pain Score Pain Level 0 01/17/23 12:08 Assessment Mental Status: Awake (Alert & Oriented to Patient Baseline) Airway and Respiratory Function: Patent airway with normal (patient baseline) respiratory exam Cardiovascular Function: Hemodynamically Stable Hydration Status: Adequately Hydrated Nausea & Vomiting: No Nausea or Vomiting Pain: Pt. Denies Any Pain Peripheral Nerve Block: Patient did not receive a nerve block
== END 2023-01-17 13:55 | disposition home or self-care (01) ==
LOC: SUR 11:26
PROVIDERS: PCP Nurse Practitioner Family; Visit Provider Ophthalmology
PROC: (CPT 66984; principal; 2023-01-17 13:30)
DX: H25.012 Cortical age-related cataract, left eye (principal); H25.12 Age-related nuclear cataract, left eye; Z98.41 Cataract extraction status, right eye
CPT/HCPCS: 66984; V2632

== ENCOUNTER 2023-03-31 02:44 | Outpatient (CLI) | payer OTHER, SELFPAY ==
--- NOTE | 2023-03-31 | DI.MAMMO_ITS ---
Exam(s) MAMMO SCREENING EXAM: MAMMO SCREENING CLINICAL HISTORY: SCREENING,Z12.39. TECHNIQUE: Bilateral full field digital CC and MLO mammographic images were obtained with 3D tomosyn thesis and utilizing computer aided detection (CAD). COMPARISON: Prior mammograms were reviewed. FINDINGS: There has been no significant change in the appearance and distribution of the fibroglandular tissue. No CAD designations. There are no new spiculated masses nor malignant appearing microcalcification groups. There is no significant architectural distortion nor skin thickening-retraction. IMPRESSION: No radiographic evidence of malignancy. BI-RADS Category 1 - Negative Breast Density - Category B - Scattered areas of fibroglandular density Breast density Category C or D implies that the patient has dense breast tissue. Dense breast tissue can make it harder to find cancer on a mammogram. Dense breast tissue is also associated with an incr eased risk of breast cancer. This information about the result of the mammogram report was provided to the patient to raise their awareness. Use this report when you speak with the patient about their risks for breast cancer, which includes their family history. At that time, you may recommend additional screening tests (Ultrasoun d or MRI) as these tests may add significant information. A negative radiographic report should not delay biopsy if a dominant or clinically suspicious mass is present. Up to ten percent of cancers are not identified on mammography. A negative report may reinforce clinical impression. Adenosis and dense breasts may obscure an underlying neoplasm. False positive reports average 6 to 10%. Patient will receive a letter notifying them of these results.
== END 2023-03-31 03:04 ==
LOC: DI 02:44
PROVIDERS: PCP Nurse Practitioner Family; Visit Provider Physician Assistant
DX: Z12.31 Encounter for screening mammogram for malignant neoplasm of breast (principal)
CPT/HCPCS: 77063; 77067

== ENCOUNTER 2024-08-15 11:53 | Outpatient (REF) | payer OTHER, SELFPAY ==
--- OUTSIDE RECORDS SUMMARY | 2024-08-15 11:56 | XMS_ITS | Encounter Summary ---
Author Organization [facility] [place] [address] Care Team Providers Care Saw Operator Name Role Phone Billie Amaro APRN Primary Care Provider [phone] Reason for Visit * Reason Onset Date Comments Other 03/29/2012 Encounter Details Date Type Department Care Team (Late st Contact Info) Description 03/29/2012 Telephone Endocrinology at [facility] [phone] Kathy Campos LPN Other Social History Tobacco Use Types Packs/Day Years Used Date Smoking Tobacco: Never Sex and Gender Information Value Date Recorded Sex Assigned at Not on file Gender Identity Not on file Sexual Orientation Not on file documented as of this encounter Miscellaneous Notes * Telephone Encounter - Kathy Campos LPN - 03/29/2012 10:57 AM EDT Returning call to patient at which times she states she will be here at [facility] on TuesdayApril 03. Patient was told she can go to either 5A or 3l lab. Test will consist of spot urine collection and blood draw. Patient also told that a copy of information on test from [facility] is being mailed to her to bring to lab per Johnie Rascon. * Telephone Encounter - Kathy Campos LPN - 03/29/2012 9:13 AM EDT Called patient no answer left message on work voice mail for patient to return my call. Need to verify what dates patient will be here at [facility] to have urine cAMP done. Per Johnie Rascon once dates are verified she needs to be emailed with patient name, MR# and dates so thAt she can notify lab documented in this encounter Plan of Treatment Not on file documented as of this encounter Visit Diagnoses Not on filedocumented in this encounter Care Teams Saw Operator Relationship Specialty Start Date End Date Billie Amaro APRN [address] [place] [address] PCP - General 02/04/12 02/02/18 documented as of this encounter
--- OUTSIDE RECORDS SUMMARY | 2024-08-15 11:56 | XMS_ITS | Encounter Summary ---
Author Organization [facility] [place] [address] Care Team Providers Care Java Xml Developer Name Role Phone Arabella Gambino APRN Primary Care Provider Reason for Visit * Reason Comments Skin Lesion * Consultation (Routine) - Closed Specialty Diagnoses / Procedures Referred By Contamrita t Referred To Contact Dermatology Diagnoses Disorder of the skin and subcutaneous tissue, unspecified Skin lesion of face Procedures Consult Arabella Gambino APRN [address] [place] [address] See Amaral MD [address] [place] [address], [facility] [place] [address] Referral ID Status Reason Start Date Expiration Date Visits Re quested Visits Authorized [id number] Closed 01/25/2022 01/25/2023 1 1 Encounter Details Date Type Department Care Team (Late st Contact Info) Description 04/15/2022 8:30 AM EDT Office Visit Dermatology at [address] [phone] See Amaral MD [address] [place] [address], [facility] [place] [address] Seborrheic keratosis Social History Tobacco Use Types Packs/Day Years Used Date Smoking Tobacco: Never Smokeless Tobacco: Never Sex and Gender Information Value Date Recorded Sex Assigned at Not on file Gender Identity Not on file Sexual Orientation Not on file documented as of this encounter Progress Notes * See Amaral MD - 04/15/2022 8:30 AM EDT Problem: 1. Skin checkup 2. No prior personal history of skin cancer Nguyen follows up is now 71. She is concerned about a changing growing lesion on her right mid cheek. Physical examination reveals a pleasant 71-year-old woman who has a pigmented flattopped keratotic papule on her right cheek consistent with a seborrheic keratosis or perhaps a pigmented actinic keratoses. Assessment plan: Seborrheic keratosis, rule out actinic keratosis 1. After obtaining informed patient consent, the site was removed with light shave biopsy 2. Triple antibiotic ointment and bandage placed 3. Wound care instructions and supplies given 4. We will notify patient of her biopsy results in 1 week 5. Return to clinic here as needed. CC: Arabella Gambino APRN documented in this encounter Plan of Treatment Not on file documented as of this encounter Visit Diagnoses Diagnosis Seborrheic keratosis Other seborrheic keratosis documented in this encounter Care Teams Java Xml Developer Relationship Specialty Start Date End Date Arabella Gambino APRN [address] [place] [address] PCP - General Family Medicine 02/03/18 documented as of this encounter
--- OUTSIDE RECORDS SUMMARY | 2024-08-15 11:56 | XMS_ITS | Encounter Summary ---
Author Organization [facility] [place] [address] Care Team Providers Care Customer Trainer Name Role Phone LenoreArabella ramos CORTEZ Primary Care Provider [phone] Encounter Details Date Type Department Care Team (Latest Contact Info) Description 04/15/2022 10:18 PM EDT - 04/15/2022 11:59 PM EDT Hospital Encounter [place] [phone] Discharge Disposition: Home Social History Tobacco Use Types Packs/Day Years Used Date Smoking Tobacco: Never Smokeless Tobacco: Never Sex and Gender Information Value Date Recorded Sex Assigned at Not on file Gender Identity Not on file Sexual Orientation Not on file documented as of this encounter Medications at Time of Discharge Medication Sig Dispensed Refills Start Date End Date amLODIPine (Norvasc) 5 mg Tablet 03/09/2022 enalapriL (Vasotec) 10 mg Tablet 03/09/2022 ergocalciferoL, vitamin D2, (vitamin D2) 50,000 unit Capsule 01/04/2022 CHOLECALCIFEROL, VITAMIN D3, (VITAMIN D3 ORAL) Take 50,000 Units by mouth twice a week. eszopiclone (LUNESTA) 2 mg Tab Take 3 mg by mouth every evening. ESTRADIOL (ESTRACE VAGL) Place vaginally twice a week. CA CITRATE/MGOX/VIT D3/B6/MIN (CITRACAL PLUS ORAL) Take by mouth. CINNAMON BARK (CINNAMON ORAL) Take by mouth. fish oil-omega-3 fatty acids with vitamin E 1,000 mg Capsule Take by mouth. MULTI-VITAMIN ORAL Take by mouth. Cranberry 500 mg Cap Take by mouth. ascorbic acid, vitamin C, (VITAMIN C) 500 mg Tablet, Chewable Take by mouth. mupirocin (Bactroban) 2 % Ointment APPLY SMALL AMOUNT TOPICALLY TO THE AFFECTED AREA THREE TIMES DAILY 12/07/2021 03/15/2024 econazole nitrate 1 % cream Apply twice daily to affected areas on left foot (weekdays only) antifungal 30 g 1 07/26/2013 03/15/2024 loratadine (CLARITIN) 10 mg tablet Take 10 mg by mouth daily. 03/15/2024 documented as of this encounter Plan of Treatment Not on file documented as of this encounter Procedures Procedure Name Priority Date/Time Associated Diagnosis Comments SURGICAL PATHOLOGY REPORT Routine 04/15/2022 8:40 AM EDT documented in this encounter Results * Surgical Pathology Report (04/15/2022 8:40 AM EDT) Final Diagnosis [id number] ? Location: [facility] The signing pathologist has (i) examined the relevant preparation(s) for the specimen(s) and (ii) rendered or confirmed the diagnosis(es). . 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 Dermatopathologist Performed at: ??[facility] [place], [place], [place] SPECIMEN(S) SUBMITTED A - R cheek, skin shave biopsy () Referring Identifier: ?(not provided) CLINICAL INFORMATION Growing keratotic papule SPECIMEN PROCESSING A - Labeled/Fixative: Patient demographics, formalin. Quantity/Size: ??Single, 0.9 x 0.7 x 0.1 cm. Tissue Description: Shave of wayne speckled brown skin. Sections/Processing: Inked, quadrisected and entirely submitted in 1 cassette labeled A1. ??nrl 04/19/2022 9:03 AM EDT [facility] SPECIMEN FROM SKIN / Unknown 04/15/2022 8:40 AM EDT 04/15/2022 8:40 AM EDT See Amaral MD PATHOLOGY/CYTOLOGY O JERRY Performing Organization Address City/State/[facility] Co de Phone Number [facility] [place] [address] documented in this encounter Visit Diagnoses Not on filedocumented in this encounter Care Teams Customer Trainer Relationship Specialty Start Date End Date Arabella Gambino, CORTEZ [address] [facility] [address] PCP - General Family Medicine 02/03/18 documented as of this encounter
--- OUTSIDE RECORDS SUMMARY | 2024-08-15 11:56 | XMS_ITS | Encounter Summary ---
Author Organization [facility] Address [facility] [place] [address] Care Team Providers Care Survey Superintendent Name Role Phone Billie Amaro APRN Primary Care Provider [phone] Reason for Visit * Reason Onset Date Comments Labs Only 03/13/2012 Encounter Details Date Type Department Care Team (Late st Contact Info) Description 03/13/2012 Telephone [place] [id number] Tobi Perez III, MD [facility] [place] [address] Labs Only Social History Tobacco Use Types Packs/Day Years Used Date Smoking Tobacco: Never Sex and Gender Information Value Date Recorded Sex Assigned at Not on file Gender Identity Not on file Sexual Orientation Not on file documented as of this encounter Miscellaneous Notes * Telephone Encounter - Darcy Alicia - 03/13/2012 3:01 PM EDT Mrs Brown will be in the area and able to do a urine lab you had discussed with her. Please enter into the system. She can do: Either March 31 Or Work # [phone] documented in this encounter Plan of Treatment Not on file documented as of this encounter Visit Diagnoses Not on filedocumented in this encounter Care Teams Survey Superintendent Relationship Specialty Start Date End Date Billie Amaro APRN [address] [place] [address] PCP - General 02/04/12 02/02/18 documented as of this encounter
--- OUTSIDE RECORDS SUMMARY | 2024-08-15 11:56 | XMS_ITS | Clinical Summary ---
Author Organization [facility] Address [facility] [place] [address] Care Team Providers Care Lead Generation Representative Name Role Phone LenoreArabella ramos CORTEZ Primary Care Provider [phone] Allergies Active Allergy Reactions Criticality Noted Date Comments Sulfa (Sulfonamide Antibiotics) 02/04 Medications Medication Sig Dispensed Refills Start Date End Date Status CHOLECALCIFEROL, VITAMIN D3, (VITAMIN D3 ORAL) Take 50,000 Units by mouth twice a week. Active eszopiclone (LUNESTA) 2 mg Tab Take 3 mg by mouth every evening. Active ESTRADIOL (ESTRACE VAGL) Place vaginally twice a week. Active CA CITRATE/MGOX/VIT D3/B6/MIN (CITRACAL PLUS ORAL) Take by mouth. Active CINNAMON BARK (CINNAMON ORAL) Take by mouth. Activ e fish oil-omega-3 fatty acids with vitamin E 1,000 mg Capsule Take by mouth. Active MULTI-VITAMIN ORAL Take by mouth. Ac tive Cranberry 500 mg Cap Take by mouth. Active ascorbic acid, vitamin C, (VITAMIN C) 500 mg Tablet, Chewable Take by mouth. Active amLODIPine (Norvasc) 5 mg Tablet 03/09/2022 Active enalapriL (Vasotec) 10 mg Tablet 03/09/2022 Active ergocalciferoL, vitamin D2, (vitamin D2) 50,000 unit Capsule 01/04/2022 Active ketoconazole (Nizoral) 2 % CreamIndications:Inte rtrigo Apply topically to affected area(s) on the groin twice daily for 3-5 days. Okay to use for longer. 30 g 03/15/2024 Active Active Problems No known active problems Social History Tobacco Use Types Packs/Day Years Used Date Smoking Tobacco: Never Smokeless Tobacco: Never Sex and Gender Information Value Date Recorded Sex Assigned at Not on file Gender Identity Not on file Sexual Orientation Not on file Last Filed Vital Signs Vital Sign Reading Time Taken Comments Blood Pressure 135/71 04/05/2018 7:43 AM EDT Pulse 80 04/05/2018 7:43 AM EDT Temperature - - Respiratory Rate - - Oxygen Saturation - - Inhaled Oxygen Concentration - - Weight 60.8 kg (134 lb) 04/05/2018 7:43 AM EDT Height 153 cm (5' 0.25) 04/05/2018 7:43 AM EDT Body Mass Index 25.95 04/05/2018 7:43 AM EDT Plan of Treatment Health Maintenance Due Date Last Done Comments CT Colonography 1948 Colonoscopy 1948 Colorectal Cancer Screening 1948 FIT DNA 1948 FIT 1948 Sigmoidoscopy (10 year) with FIT yearly 1948 Sigmoidoscopy 1948 Hepatitis C Screening 1966 Tetanus/Diphtheria/Pertussis Vaccines (1 - Tdap) 09/18 Zoster vaccine (1 of 2) 1998 Advance Directive 2003 Bone Density Scan 2013 Pneumoccocal Vaccine: 65+ (1 of 1 - PCV) 2013 RSV Vaccine (1 - 1-dose 75+ series) 2023 Covid-19 Vaccine (1 - 2023- season) 2024 Influenza (Flu) vaccine (1 o f 1 - Influenza standard series) 05/06/2024 Care Teams Lead Generation Representative Relationship Specialty Start Date End Date Arabella Gambnio APRN [address] [place] [address] PCP - General Family Medicine 02/03/18
--- OUTSIDE RECORDS SUMMARY | 2024-08-15 11:56 | XMS_ITS | Encounter Summary ---
[place] [address] Care Team Providers Care Senior Network Administrator Name Role Phone Arabella Gambino APRN Primary Care Provider Encounter Details Date Type Department Care Team (Latest Contact Info) Description 03/15/2024 Travel Social History Tobacco Use Types Packs/Day Years Used Date Smoking Tobacco: Never Smokeless Tobacco: Never Sex and Gender Information Value Date Recorded Sex Assigned at Not on file Gender Identity Not on file Sexual Orientation Not on file documented as of this encounter Plan of Treatment Not on file documented as of this encounter Visit Diagnoses Not on filedocumented in this encounter Care Teams Senior Network Administrator Relationship Specialty Start Date End Date Arabella Gambino APRN [address] [place] [address] PCP - General Family Medicine 02/03/18 documented as of this encounter
--- OUTSIDE RECORDS SUMMARY | 2024-08-15 11:56 | XMS_ITS | Encounter Summary ---
Author Organization [facility] [place] [address] Care Team Providers Care Automotive Parts Counter Person Name Role Phone KaterynaBillie barbosa CORTEZ Primary Care Provider [phone] Reason for Visit * Reason Comments Advice Only Encounter Details Date Type Department Care Team (Latest Contact Info) Description 03/01/2012 9:00 AM EDT Office [place] [phone] Tobi Perez III, MD [facility] [place] [address] Hypoparathyroidism (Primary Dx) Discharge Disposition: Home Social History Tobacco Use Types Packs/Day Years Used Date Smoking Tobacco: Never Sex and Gender Information Value Date Recorded Sex Assigned at Not on file Gender Identity Not on file Sexual Orientation Not on file documented as of this encounter Last Filed Vital Signs Vital Sign Reading Time Taken Comments Blood Pressure 152/84 03/01/2012 8:48 AM EDT Pulse 90 03/01/2012 8:48 AM EDT Temperature - - Respiratory Rate - - Oxygen Saturation - - Inhaled Oxygen Concentration - - Weight 68.2 kg (150 lb 6.4 oz) 03/01/2012 8:48 A M EDT Height 154.9 cm (5' 1) 03/01/2012 8:48 AM EDT Body Mass Index 28.42 03/01/2012 8:48 AM EDT documented in this encounter Progress Notes * Tobi Perez III, MD - 03/01/2012 9:30 AM EDT I saw Nguyen Brown in the Endocrinology clinic on 03-01-12 for suspected hypoparathyroidism at therequest of GIANCARLO Wilhelm MD. This 49 yo woman had typical tetany in the 1969???s, and was eventually found to have hypoparathyroidism. She was initially treated with very large doses of vitamin D and calcium, but has weaned herself over the years to the current 50kU every other day of vitamin D + 600 mg calcium citrate/d, and has had left eye twitching as her only symptom. Her PTH level has not been assessed since 1972. There is no history of neck surgery/radiation, seizure or polyglandular failure syndrome components. Complete review of systems otherwise showed that she hes vever had a kidney stone and had a normal DXA scan 2.5 y ago. Her history is positive for LESLY/BSO 3 y ago. Family history is negative for polyglandular failure syndrome components with the possible excpetion of an aunt with pernicious anemia. 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 Medications include <CIS>. On physical examination she appeared well. The HR was 70, regular. There was no jessy tenderness ordeformity. Her heart was without murmur, and the lungs were clear. There was no pedal edema and no ecchymoses, and the skin pigment was normal (no vitiligo). There was no neck mass or goiter, and reflexes were normal. There was no band keratopathy. Chvostek???s sign was absent, and there was no mucocutaneous rash (ie- rohit). The 4th rays of her hands were of norml dimension. In summary, she has a history consistent with autoimmune hypoparathyroidism, without evidence of additional manifestations of the polyglandular failure syndrome in herself or family. She has been successfully managed, without complications, on an outdated regimen of high-dose vitamin D (which carries a significant risk of D toxicity). We arranged to assess calcum, and PTH. If this reveals ongoingevidence of hypoparathyroidism we will consider switching her to Rocaltrol. We also discussed the fact that her calcium level should be maintained in the slightly low to low-normal range. More than 32 of this 60 minute visit was spent in face to face counseling and discussing the implications of the diagnosis and potential therapeutic approaches. documented in this encounter Plan of Treatment Not on file documented as of this encounter Procedures Procedure Name Priority Date/Time Associated Diagnosis Comments PTH Routine 03/01/2012 9:32 AM EDT Hypoparathyroidism VITAMIN D, 25-HYDROXY Routine 03/01/2012 9:32 AM EDT Hypoparathyroidism CALCIUM Routine 03/01/2012 9:32 AM EDT Hypoparathyroidism documented in this encounter Results * VIT D Total Evaluation (03/01/2012 9:32 AM EDT) Vitamin D Total 25 OH 70 30 - 100 ng/mL [facility] Comment: Deficient <10 ng/mL Insufficient 10 to 29 ng/mL Sufficient 30 to 100 ng/mL Potential Intoxication >100 ng/mL According to the [place] National Osteoporosis Foundation, Vitamin D concentrations >30 ng/mL are sufficient to protect bone health. ??The National Kidney Foundation has similarly stated that patients with Vitamin D concentrations <30ng/mL should be considered to be insufficient or deficient. http://www.kidney.org/professionals/KDOQI/guidelines_bone/Guide7.htm http://www.nof.org/professionals/clinical-guidelines The [employer] iSYS Vitamin D Immunoassay detects both 25-OH Vitamin D2 and 25-OH Vitamin D3, but only a total Vitamin D concentration is reported. Please note, the performing location for this test has changed. ??As of 10/12/2011 the Vitamin D Total, 25 Hydroxy assays are being analyzed by the [facility]. ??There is NO CHANGE in units. ??Please contact the chemistry laboratory at [phone] with questions. Blood specimen (specimen) 03/01/2012 9:32 AM EDT 03/01/2012 9:43 AM EDT Narrative Resulting Agency Comment Spec In Lab Tobi Perez III, MD CHEMISTRY ORDER FRANCIS NESTOR MENENDEZ * (ABNORMAL) PTH (03/01/2012 9:32 AM EDT) Parathyroid Hormone 208(H) 15 - 65 pg/mL CERNIA PARRAENNIUM Blood specimen (specimen) 03/01/2012 9:32 AM EDT 03/01/2012 9:43 AM EDT Narrative Resulting Agency Comment Spec In Lab Tobi Perez III, MD CHEMISTRY ORDER FRANCIS NESTOR EVANSIUM * Calcium (03/01/2012 9:32 AM EDT) Calcium 9.9 8.5 - 10.5 mg/dL NESTOR EVANSIUM Blood specimen (specimen) 03/01/2012 9:32 AM EDT 03/01/2012 9:43 AM EDT Narrative Resulting Agency Comment Spec In Lab Tobi Perez III, MD CHEMISTRY ORDER FRANCIS Performing Organization Address City/[facility] Co de Phone Number NESTOR MENENDEZ documented in this encounter Visit Diagnoses Diagnosis Hypoparathyroidism- Primary documented in this encounter Care Teams Automotive Parts Counter Person Relationship Specialty Start Date End Date Billie Amaro APRN [address] [place] [address] PCP - General 02/04/12 02/02/18 documented as of this encounter
--- OUTSIDE RECORDS SUMMARY | 2024-08-15 11:56 | XMS_ITS | Encounter Summary ---
Author Organization [facility] Address [facility] [place] [address] Care Team Providers Care First Line Supervisor Name Role Phone Billie Amaro GLOBAL PROGRAM DIRECTOR Primary Care Provider [phone] Encounter Details Date Type Department Care Team (Late st Contact Info) Description 03/28/2012 [place] [address] Tobi Perez III, MD [facility] [place] [address] Pseudopseudo-hypoparat hyroidism (Primary Dx) Social History Tobacco Use Types Packs/Day Years Used Date Smoking Tobacco: Never Sex and Gender Information Value Date Recorded Sex Assigned at Not on file Gender Identity Not on file Sexual Orientation Not on file documented as of this encounter Progress Notes * Tobi Perez III, MD - 03/28/2012 1:26 PM EDT cAMP documented in this encounter Plan of Treatment Not on file documented as of this encounter Results * Miscellaneous Lab request (04/03/2012 10:36 AM EDT) Label Request received in lab. NESTOR MENENDEZ Specimen of unknown material (specimen) 04/03/2012 10:36 AM EDT 04/03/2012 10:41 AM EDT Tobi Perez III, MD LAB SEND OUT OR DERABLES Performing Organization Address City/[facility] Co de Phone Number NESTOR MENENDEZ * Miscellaneous Lab request (04/03/2012 10:31 AM EDT) Label Request received in lab. NESTOR MENENDEZ Specimen of unknown material (specimen) 04/03/2012 10:31 AM EDT 04/03/2012 10:38 AM EDT Tobi Perez III, MD LAB SEND OUT OR DERABLES Performing Organization Address [facility] Co de Phone Number NESTOR MENENDEZ documented in this encounter Visit Diagnoses Diagnosis Pseudopseudo-hypoparathyroidism- Primary Other disorder of calcium metabolism documented in this encounter Care Teams First Line Supervisor Relationship Specialty Start Date End Date Billie Amaro APRN [address] [place] [address] PCP - General 02/04/12 02/02/18 documented as of this encounter
--- OUTSIDE RECORDS SUMMARY | 2024-08-15 11:56 | XMS_ITS | Encounter Summary ---
Author Organization [facility] Address [facility] [place] [address] Care Team Providers Care Color Dipper Name Role Phone Arabella Gambino APRN Primary Care Provider Reason for Visit * Consultation (Routine) - Closed Specialty Diagnoses / Procedures Referred By Heike t Referred To Contact Endocrinology Diagnoses PSEUDOHYPOPARATHYROIDISM Arabella Gambino APRN [address] [place] [address] [facility] Endocrinology [address] [place] [phone] Referral ID Status Reason Start Date Expiration Date V isits Requested Visits Authorized [id number] Closed Evaluate and [facility] 03/01/2018 03/01/2019 1 1 Encounter Details Date Type Department Care Team (Latest Contact Info) Description 04/05/2018 8:00 AM EDT Office [place] [phone] [facility] [place] [address] [facility] [place] [address] Pseudohypoparathyroidism Social History Tobacco Use Types Packs/Day Years [...] Mass Index 25.95 04/05/2018 7:43 AM EDT documented in this encounter Progress Notes * Lisseth Judd MD - 04/05/2018 8:00 AM EDT ENDOCRINOLOGY NEW PATIENT CONSULTATION Patient Name: Nguyen Brown Date of Appointment: 04/05/2018 History of Presenting Illness: Nguyen Brown is a 67 yoa F with PMH of pseudohypoparathyroidism and HTN who presents to Endocrinology clinic 04/05/18 for follow up of pseudohypoparathyroidism. Mrs. Brown was initially diagnosed with autoimmune hypoparathyroidism at the age of 19 after presenting to the [facility] with frequent urinary tract infections, migraine headaches, muscle cramping/twitches, and mini seizures. She describes having a blood pressure inflated and her thumb lee. She was told she had hypoparathyroidism and was started on powdered calcium and evelyn doses of calciferol. She established care at [facility] in 02/2012 and was seen by Dr. Perez who found PTH was actually elevated at 208 with normal calcium and Vit D level. Urine cAMP collection was subsequently performed and was inappropriately normal in setting of elevated PTH (level was 1.8, normal 1.3-3.7 in setting of normal PTH), and she was diagnosed with pseudohypoparathyroidism. She denies any family history of calcium/parathyroid disorders. Since 2011 she has been taking ergocalciferol 50 000 units three days a week and has been followed by her PCP in [facility]. She reports that she has been doing well without recurrent muscle cramping, and she denies numbness/tingling, palpitations/dizziness/syncope. Her PCP obtained lab testing 02/13/2018 that demonstrated elevated 25-OH Vit D at 104, but normal calcium of 8.6 (albumin was not obtained). Mrs. Brown notes her calcium usually is ~7, so this was elevated for her. She was advised to decrease her ergocalciferol to 50 000 units two days weekly and was referred back to Endocrinology. Her last DEXA scan was performed in 2001 and was normal. ROS: Constitutional: No tiredness, weight change+-lost 30 lbs intentionally over 1.5 years, no heat or cold intolerance Endocrine: No thyroid problems. No abnormal sweating or flushing. No galactorrhea or breast tenderness. Normal sexual desire. Integument: No excessive hair growth, balding, acne or oily skin. No ulcerations. No easily bruising. Neurological: No headache or weakness. No seizure, fainting or dizziness Eyes: No recent vision changes ENT: No dysphagia, dental issues Cardiovascular: No chest pain or palpitations Respiratory: No cough, wheezing, shortness of breath GI: Normal appetite. No nausea, vomiting, diarrhea, constipation : No frequent urinary tract infections or polyuria Musculoskeletal: No joint aches, muscle pain. No back pain Psychiatric: No depression, anxiety Past Medical History: Hypertension Hypoparathyroidism Past Surgical History: Hysterectomy and Bilateral Salpingoophorectomy-2009 Medications: Current Outpatient Prescriptions on File Prior to Visit Medication Sig Dispense Refill ??? econazole nitrate 1 % cream Apply twice daily to affected areas on left foot (weekdays only) antifungal 30 g 1 ??? CHOLECALCIFEROL, VITAMIN D3, (VITAMIN D3 ORAL) Take 50,000 Units by mouth twice a week. ??? Enalapril-Hydrochlorothiazide 5-12.5 mg Tab Take by mouth. ??? eszopiclone (LUNESTA) 2 mg Tab Take 3 mg by mouth every evening. ??? ESTRADIOL (ESTRACE VAGL) Place vaginally twice a week. ??? loratadine (CLARITIN) 10 mg tablet Take 10 mg by mouth daily. ??? CA CITRATE/MGOX/VIT D3/B6/MIN (CITRACAL PLUS ORAL) Take by mouth. ??? CINNAMON BARK (CINNAMON ORAL) Take by mouth. ??? [place]-3 Fatty Acids-Vitamin E (FISH OIL) 1,000 mg Cap Take by mouth. ??? MULTI-VITAMIN ORAL Take by mouth. ??? Cranberry 500 mg Cap Take by mouth. ??? Ascorbic Acid (VITAMIN C) 500 mg Chew Take by mouth. ??? [DISCONTINUED] Clobetasol-Emollient 0.05 % Crea Apply twice daily to affected areas on left foot- weekends only. (Steroid) (Patient not taking: Reported on 04/05/2018) 15 g 1 ??? [DISCONTINUED] aspirin 81 mg EC tablet Take 81 mg by mouth twice a week. No current facility-administered medications on file prior to visit. Allergies: Allergies Allergen Reactions ??? Sulfa (Sulfonamide Antibiotics) Social Hx: Lives in [place], [place]. 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 Never smoker EtOH-None Family Hx: Breast ca-Mother Pancreatic ca-Father No history of parathyroid/calcium issues Vitals Last value Temperature Heart Rate Heart Rate: 80 Blood Pressure BP: 135/71 Respiratory Rate Body mass index is 25.95 kg/(m^2). Physical Exam: General appearance: pleasant female sitting comfortably in chair, short stature HEENT: moist mucus membranes, fixed hard mass extending from hard palate (states present since before she can remember) CVS: RRR, normal S1 and S2, no added sounds or murmurs Pulm: breathing comfortably on RA, CTAB Abd: soft, non-tender, BS+ Extremities: No peripheral edema, no shortening of 4th metacarpal appreciated, no subcutaneous calcifications Thyroid exam: thyroid gland of normal size with no palpable nodules, no cervical lymphadenopathy Neuro: Chvostek sign negative Pertinent Laboratory Findings: Recent Labs 04/05/18 0940 CALCIUM 9.2 PHOS 3.8 Albumin 3.8 PTH 240 25 OH Vit D-pending OSH Labs 02/10/18 25 OH Vit D 103.9 Ca 8.6 No albumin BUN 18 Cr 0.95 03/01/12 PTH 208 Ca 9.9 25 OH Vit D70 Assessment: Nguyen Brown is a 67 yoa F with PMH of HTN who presents to Endocrinology clinic 04/05/18 for follow up of pseudohypoparathyroidism, which was diagnosed in 2011 after she was found to have normal calcium, and 25 OH Vit D, but unexpectedly elevated PTH during evaluation for previously diagnosed autoimmune hypoparathyroidism (would expect low PTH level with this diagnosis). Diagnosis was confirmedwhen urine cAMP returned at inappropriately normal level despite elevated PTH. She denies having any symptoms of hypocalcemia since the time of her diagnosis and has been managing her condition by taking ergocalciferol 50 000 units 2-3 days weekly for several years. Her calcium returned today within the normal range at 9.2. Given hypocalcemia 2/2 pseudohypoparathyroidism and not hypoparathyroidism, can aim to maintain normocalcemia rather than low-normal serum calcium. Her 25 OH Vit D level returned within potential intoxication range at 104 recently, and she was advised to reduce her ergocalciferol dosing. However, she is at low risk for Vit D intoxication given low risk of developing hypercalcemia with underlying PTH resistance, and main aim at this time is maintaining normal calcium. Pseudohypoparathyroidism is typically managed with calcitriol (as PTH cannot act to readily xipwhul11-HZ Vit D to 1,25-Vit D) with starting dose of 0.25 mcg BID. However, she has been managing well with ergocalciferol 50 000 units 2-3 times weekly for several decades. No changes were made today, but will plan to discuss ongoing management at Endocrine Case Conference 04/06/18. Plan: -Follow up 25 OH Vit D -Discuss ongoing management at case conference 04/06/18 This case has been discussed with Dr. Salas of Endocrinology. Lisseth Judd MD PGY 4 Endocrinology Pager [phone] * Amber Salas MD - 04/05/2018 8:00 AM EDT I saw this patient with Dr. Judd. I reviewed the rhodes portions of the history and physical exam, and reviewed pertinent lab data. I answered all patient questions. I was involved in all medical decision making and agree with this plan. AMBER SALAS MD Floor Care Technicianspecial education case manager Section of Endocrinology [facility] documented in this encounter Plan of Treatment Not on file documented as of this encounter Procedures Procedure Name Priority Date/Time Associated Diagnosis Comments PTH Routine 04/05/2018 9:40 AM EDT Pseudohypoparathyro idism VITAMIN D, 25-HYDROXY Routine 04/05/2018 9:40 AM EDT Pseudohypoparathyro idism PHOSPHORUS Routine 04/05/2018 9:40 AM EDT Pseudohypoparathyro idism CALCIUM Routine 04/05/2018 9:40 AM EDT Pseudohypoparathyro idism ALBUMIN LEVEL Routine 04/05/2018 9:40 AM EDT Pseudohypoparathyro idism documented in this encounter Results * (ABNORMAL) PTH (04/05/2018 9:40 AM EDT) Parathyroid Hormone 240(H) 15 - 65 pg/mL [facility] Blood specimen (specimen) 04/05/2018 9:40 AM EDT 04/05/2018 9:54 AM EDT Narrative Resulting Agency Comment Spec In Lab Amber Salas MD CHEMISTRY ORDERABLES Performing Organization Address City/[facility]/ZIP Co de Phone Number [facility] [place] [address] * Phosphorus (04/05/2018 9:40 AM EDT) Phosphorus 3.8 2.5 - 4.5 mg/dL [facility] Blood specimen (specimen) 04/05/2018 9:40 AM EDT 04/05/2018 9:54 AM EDT Narrative Resulting Agency Comment Spec In Lab Amber Salas MD CHEMISTRY ORDERABLES Performing Organization Address City/[facility]/ZIP Co de Phone Number [facility] [place] [address] * Vitamin D, 25-Hydroxy (04/05/2018 9:40 AM EDT) Vitamin D Total 25 OH 89 30 - 100 ng/mL [facility] Comment: Deficient <10 ng/mL Insufficient 10 to 29 ng/mL Sufficient 30 to 100 ng/mL Potential Intoxication >100 ng/mL According to the US National Osteoporosis Foundation, Vitamin D concentrations >30 ng/mL are sufficient to protect bone health. ??The National Kidney Foundation has similarly stated that patients with Vitamin D concentrations <30ng/mL should be considered to be insufficient or deficient. http://ProPlan/nkf-guidelines http://ProPlan/nejm-VitD The IDS iSYS Vitamin D Immunoassay detects both 25-OH Vitamin D2 and 25-OH Vitamin D3, but only a total Vitamin D concentration is reported. Blood specimen (specimen) 04/05/2018 9:40 AM EDT 04/05/2018 10:45 AM EDT Narrative Resulting Agency Comment Spec In Lab Amber Salas MD CHEMISTRY ORDERABLES Performing Organization Address [facility]/ZIP Co de Phone Number [facility] [place] [phone] * Albumin Level (04/05/2018 9:40 AM EDT) Albumin 3.8 3.2 - 5.2 gm/dL [facility] Blood specimen (specimen) 04/05/2018 9:40 AM EDT 04/05/2018 9:54 AM EDT Narrative Resulting Agency Comment Spec In Lab Amebr Salas MD CHEMISTRY ORDERABLES [facility] [place] [address] * Calcium (04/05/2018 9:40 AM EDT) Calcium 9.2 8.5 - 10.5 mg/dL [facility] Blood specimen (specimen) 04/05/2018 9:40 AM EDT 04/05/2018 9:54 AM EDT Narrative Resulting Agency Comment Spec In Lab Amber Salas MD CHEMISTRY ORDERABLES [facility] [address] [place] [address] documented in this encounter Visit Diagnoses Diagnosis Pseudohypoparathyroidism Other disorder of calcium metabolism documented in this encounter Care Teams Color Dipper Relationship Specialty Start Date End Date Arabella Gambino, CORTEZ [address] [facility] [place] [address] PCP - General Family Medicine 02/03/18 documented as of this encounter
--- OUTSIDE RECORDS SUMMARY | 2024-08-15 11:56 | XMS_ITS | Encounter Summary ---
[place] [address] Care Team Providers Care Layout Technician Name Role Phone Arabella Gambino APRN Primary Care Provider [phone] Reason for Visit * Reason Comments Follow-up Encounter Details Date Type Department Care Team (Late st Contact Info) Description 06/24/2022 3:15 PM EDT Office Visit Dermatology at [address] [place] [phone] See Amaral MD [address] [facility], [place] [address] History of squamous cell carcinoma in situ (SCCIS) of skin; Seborrheic keratosis Social History Tobacco Use Types Packs/Day Years Used Date Smoking Tobacco: Never Smokeless Tobacco: Never Sex and Gender Information Value Date Recorded Sex Assigned at Not on file Gender Identity Not on file Sexual Orientation Not on file documented as of this encounter Progress Notes * See Amaral MD - 06/24/2022 3:15 PM EDT Problem: Follow-up SCC in situ right cheek status post 4-week course of imiquimod cream April 2022 Nguyen follows up for repeat check on her progress following a months worth of imiquimod cream to the biopsied SCC in situ. Peripheral and deep margins were positive. She has been off of the imiquimod now for a month and is here for follow-up. Physical examination reveals a pleasant 71-year-old woman who has a patchy area of erythema on her right mid cheek at the site of the shave biopsy and imiquimod cream therapy. It appears to be healing well without evidence of recurrence. Assessment plan: SCC in situ right cheek 1. No further treatment necessary 2. Patient has an appointment scheduled at [facility] for a complete skin checkup in September 07. Return to clinic here will be as needed. CC: Arabella Gambino APRN documented in this encounter Plan of Treatment Not on file documented as of this encounter Visit Diagnoses Diagnosis History of squamous cell carcinoma in situ (SCCIS) of skin Seborrheic keratosis Other seborrheic keratosis documented in this encounter Care Teams Layout Technician Relationship Specialty Start Date End Date Arabella Gambino APRN [address] [place] [address] PCP - General Family Medicine 02/03/18 documented as of this encounter
--- OUTSIDE RECORDS SUMMARY | 2024-08-15 11:56 | XMS_ITS | Encounter Summary ---
Author Organization [facility] [place] [address] Care Team Providers Care Chute Worker Name Role Phone Arabella Gambino APRN Primary Care Provider [phone] Encounter Details Date Type Department Care Team (Late st Contact Info) Description 04/20/2022 4:30 PM EDT Office Visit Dermatology at [address] [place] [phone] See Amaral MD [address] [facility], [place] [address] History of squamous cell carcinoma in situ (SCCIS) of skin Social History Tobacco Use Types Packs/Day Years Used Date Smoking Tobacco: Never Smokeless Tobacco: Never Sex and Gender Information Value Date Recorded Sex Assigned at Not on file Gender Identity Not on file Sexual Orientation Not on file documented as of this encounter Progress Notes * See Amaral MD - 04/20/2022 4:30 PM EDT Problem: Question wound infection Nguyen follows up concerned that she may have an infection after shave biopsy site Physical examination reveals normal eschar forming at the right cheek shave biopsy site. Biopsy didcome back showing squamous cell carcinoma carcinoma in situ present at the peripheral and deep margins. Assessment plan: SCC in situ right cheek, with positive deep and peripheral margins 1. Continue to allow this to heal. Wound care instructions again repeated and further supplies given. 2. Then begin imiquimod 5% cream applying Tuesday and Tuesday evenings only and a thin layer for 4 weeks then discontinue. Dispense 12 packets, 3 g with 0 refills 3. Return to clinic in 2 months for repeat check. CC: Arabella Gambino APRN documented in this encounter Plan of Treatment Not on file documented as of this encounter Visit Diagnoses Diagnosis History of squamous cell carcinoma in situ (SCCIS) of skin documented in this encounter Care Teams Chute Worker Relationship Specialty Start Date End Date Arabella Gambino APRN [address] [place] [address] PCP - General Family Medicine 02/03/18 documented as of this encounter
--- OUTSIDE RECORDS SUMMARY | 2024-08-15 11:56 | XMS_ITS | Encounter Summary ---
Author Organization [facility] [place] [address] Care Team Providers Care Hotel Front Desk Clerk Name Role Phone Arabella Gambino APRN Primary Care Provider [phone] Encounter Details Date Type Department Care Team (Late st Contact Info) Description 09/16/2022 1:00 PM EST Office Visit Dermatology at [facility] [address] [place] [address] Jose Fu MD [facility] [address] [place] [address] Boudreaux angioma; Seborrheic keratoses; Lentigines; Actinic keratoses Social History Tobacco Use Types Packs/Day Years Used Date Smoking Tobacco: Never Smokeless Tobacco: Never Sex and Gender Information Value Date Recorded Sex Assigned at Not on file Gender Identity Not on file Sexual Orientation Not on file documented as of this encounter Progress Notes * Wilfrid Patton[facility] - 09/16/2022 1:00 PM EST Images from the original note were not included. DEPARTMENT OF DERMATOLOGY Medical D[facility]atology [facility] Provider: Jose Fu MD Patient's preferred name Nguyen Preferred contact method for results [x]Phone []myD-H []Letter Detailed phone message OK? Yes Are there any other people with whom we may discuss your care? SonVan Past Medical History Date, location, treatment Melanoma N Dysplastic nevi N SCC 04/20/22: Right cheek, SCCis, s/p Imiquimod BCC N AKs N UV Exposure & Protection Sun Protection: Wears sunscreen Grew up on [facility]; a lot of sunburns when younger Other relevant past medical history N Family History Details Melanoma Mother (many things burned off)? NMSC Mother (many things burned off)? 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 Patient returns to clinic today for a full skin examination. - Previous patient at [facility] D[facility]. Prevoius See Amaral patient. - Recently had an SCCis on the right cheek treated on 04/20/2022 with imiquimod. Patient state it looks better. Patient states she tolerated the Imiquimod well. - Patient has crusty spots which go away and come back on the dorsum of the left hand. Not painful. She picks at them. Last visit at Dermatology: Visit date not found Last visit with this provider: Visit date not found Medications: Reviewed in eD-H Allergies: Reviewed in eD-H Skin Examination: Full skin examination: Patient asked to undress to their comfort level. Verbalized that the provider's preference is that patient remove all clothing and that the provider will not examine areas patient elects to keep covered. Examination of the scalp, hair, head, face, ears, neck, chest, axillae, abdomen, back, buttocks, and upper and lower extremities was normal with the exception of the findings below. Genitalia not examined. Assessment/Plan: #. Actinic Keratosis - Ill-defined gritty papule on the forehead (x1). - Explained premalignant potential of these lesions. - Discussed treatment with cryotherapy. Patient elects to proceed with cryotherapy today. - Instructed patient to return to clinic for re-evaluation if lesion(s) does not resolve as expected with this treatment. Procedure: Destruction of lesion(s) with cryotherapy (LN2). Location(s): As noted above. Number: 1 Discussed procedure and expectations, including risks and benefits. Verbal consent obtained. Treated with LN2. There were no complications; Patient tolerated the procedure well. Post-procedure expectations and wound care reviewed. #. Lentigines - Scattered light-brown, evenly pigmented, well-demarcated macules on sun-exposed areas of the trunk and extremities. - No worrisome pigmented lesions. Discussed benign nature of lesions and provided reassurance. Willcontinue to monitor. #. Boudreaux Angiomas - Multiple bright red, well-demarcated papules on the trunk and extremities. - Discussed benign nature of lesions and provided reassurance. No treatment necessary at this time. #. Seborrheic Keratoses - Stuck on, waxy papules on the trunk and extremities, including the dorsumof the left hand. - Discussed benign nature of lesions and provided reassurance. No treatment necessary at this time. RTC: 1 year for FSE []Note routed to secretary of police [x]Recall placed in scheduling system []Appointment scheduled at checkout Scribe attestation: Wilfrid Patton [facility] has performed the documentation for this encounter in the presence of and acting as a scribe for Jose Fu MD. I performed the above scribed service and agree with the accuracy of the documentation in this encounter. Reviewed and signed by: Jose Fu MD Dermatology [facility] documented in this encounter Plan of Treatment Not on file documented as of this encounter Visit Diagnoses Diagnosis Boudreaux angioma Nevus, non-neoplastic Seborrheic keratoses Lentigines Other dyschromia Actinic keratoses Actinic keratosis documented in this encounter Care Teams Hotel Front Desk Clerk Relationship Specialty Start Date End Date Arabella Gambino, CORTEZ [address] [place] [address] PCP - General Family Medicine 02/03/18 documented as of this encounter
--- OUTSIDE RECORDS SUMMARY | 2024-08-15 11:56 | XMS_ITS | Encounter Summary ---
[place] [address] Care Team Providers Care Economic Analyst Name Role Phone Arabella Gambino APRN Primary Care Provider [phone] Encounter Details Date Type Department Care Team (Latest Contact Info) Description 03/08/2024 Travel Social History Tobacco Use Types Packs/Day [...] on filedocumented in this encounter Care Teams Economic Analyst Relationship Specialty Start Date End Date Arabella Gambino APRN [address] [place] [address] PCP - General Family Medicine 02/03/18 documented as of this encounter
--- OUTSIDE RECORDS SUMMARY | 2024-08-15 11:56 | XMS_ITS | Continuity of Care Document ---
Author Name [facility] Organization [facility] Care Team Providers Care Customer Service Clerk Name Role Phone [facility] Unavailable Unavailable Social History Combined list of available smoking, tobacco, and other social history from Department of Defense and Veterans Affairs facilities. Social History Type Response Date Comment Sourc e This section is an empty social history section. [facility]
--- OUTSIDE RECORDS SUMMARY | 2024-08-15 11:56 | XMS_ITS | Encounter Summary ---
Author Organization [facility] [place] [address] Care Team Providers Care Bar Tacker Sewing Machine Name Role Phone Arabella Gambino APRN Primary Care Provider Encounter Details Date Type Department Care Team (Late st Contact Info) Description 03/15/2024 3:00 PM EDT Office Visit Dermatology at [facility] [address] [place] [address] Jose Fu MD [facility] [place] [address] Inflamed seborrheic keratosis; Multiple benign melanocytic nevi of upper and lower extremities and trunk; Lentigines; Boudreaux angioma; Seborrheic keratoses; History of nonmelanoma skin cancer; Intertrigo; Androgenetic alopecia Social History Tobacco Use Types Packs/Day Years Used Date Smoking Tobacco: Never Smokeless Tobacco: Never Sex and Gender Information Value Date Recorded Sex Assigned at Not on file Gender Identity Not on file Sexual Orientation Not on file documented as of this encounter Progress Notes * Naveen Gordon CMA - 03/15/2024 3:00 PM EDT Images from the original note were not [...] cheek, SCCis, s/p Imiquimod BCC N AKs LN2 UV Exposure & Protection Sun Protection: Wears sunscreen [place]; a lot of sunburns when younger Other relevant past medical history N Family History Details Melanoma N/a NMSC Mother (many things burned off) Other relevant family history N Social 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 year old. Patient returns to clinic todayfor a full skin exam. Patient reports: - Spot on the right back - gets irritated against bra. Bleeds when scratched. Last visit at [facility] Derm: 09/16/2022 Last visit with this provider: 09/16/2022 Medications: Reviewed in eD-H Allergies: Reviewed in eD-H Skin Examination: Full skin examination: Patient asked to undress to their comfort level. Verbalized that the provider's preference is that patient removal all clothing and that the provider will not examine areas patient elects to keep covered. Examination of the scalp, hair, head, face, ears, neck, chest, axillae,abdomen, back, buttocks, genitalia, and upper and lower extremities. Assessment/Plan: #. Intertrigo - Erythematous, slightly scaly plaques with slight maceration on the groin. - Explained that condition is a result of repeated rubbing of skin folds in the setting of moisture. - Start Rx ketoconazole 2% cream: Apply topically to affected area(s) on the groin twice daily for 3-5 days. Okay to use for longer. #. 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 Discussed efficacy, risks, and benefits of each. - Recommend starting OTC topical Minoxidil 5% twice daily to the scalp; can initially increase hairloss over first 4-6 weeks then will increase hair density with time. It may take up to 4 months to see an effect. #. Inflamed Seborrheic Keratosis - Inflamed, stuck on, waxy papule on the right flank (x1). - Discussed benign nature of lesion(s) and provided reassurance. - Due to irritation present on today's exam and history of symptoms, discussed removal with cryotherapy. - Offered treatment with LN2; however, patient declines at this time as lesion is not bothersome. #. Benign Nevi - Scattered medium brown, evenly pigmented macules and papules on the trunk and extremities with reassuring pigment pattern on dermoscopy. - Discussed benign nature of lesions and provided reassurance. Will continue to monitor. #. Lentigines - Scattered light-brown, evenly pigmented, [...] No treatment necessary at this time. #. History of SCCis - Well-healed scars per skin history. - No evidence of recurrence; will continue to monitor. Other items to document in the assessment/plan if relevant OTC skin products discussed RTC: 1 year for FSE []Note routed to office secretary [x]Recall has been placed in scheduling system []Appointment scheduled at checkout Scribe attestation: Wilfrid Patton CMA has performed the documentation for this encounter in the presence of and acting as a scribe for Jose Fu MD. I performed the above scribed service and agree with the accuracy of the documentation in this encounter. Reviewed and signed by: Jose Fu MD Dermatology [facility] documented in this encounter Plan of Treatment Not on file documented as of this encounter Visit Diagnoses Diagnosis Inflamed seborrheic keratosis Multiple benign melanocytic nevi of upper and lower extremities and trunk Lentigines Other dyschromia Boudreaux angioma Nevus, non-neoplastic Seborrheic keratoses History of nonmelanoma skin cancer Personal history of other malignant neoplasm of skin Intertrigo Other specified erythematous condition Androgenetic alopecia Other alopecia documented in this encounter Care Teams Bar Tacker Sewing Machine Relationship Specialty Start Date End Date Arabella Gambino, [address] VENDOR [address] [place] [address] PCP - General Family Medicine 02/03/18 documented as of this encounter
--- OUTSIDE RECORDS SUMMARY | 2024-08-15 11:56 | XMS_ITS | Encounter Summary ---
Author Organization [place] [address] Care Team Providers Care Tutoring Manager Name Role Phone Arabella Gambino APRN Primary Care Provider Encounter Details Date Type Department Care Team (Late st Contact Info) Description 04/20/2022 Refill Dermatology at [address] [address] Dianna Nuñez, YESI Social History Tobacco Use Types Packs/Day Years [...] on filedocumented in this encounter Care Teams Tutoring Manager Relationship Specialty Start Date End Date Arabella Gambino APRN [address] [place], [place] [address] PCP - General Family Medicine 02/03/18 documented as of this encounter
--- OUTSIDE RECORDS SUMMARY | 2024-08-15 11:56 | XMS_ITS | Encounter Summary ---
Author Organization [facility] Address [facility] [place] [address] Care Team Providers Care Uniform Force Captain Name Role Phone SondraFlorencioBillie CORTEZ Primary Care Provider [phone] Encounter Details Date Type Department Care Team (Latest Contact Info) Description 04/03/2012 10:05 AM EDT - 04/03/2012 11:59 PM EDT Hospital [place] [id number] Tobi Perez III, MD [facility] [place] [address] Pseudopseudo-hypopa rathyroidism Discharge Disposition: Home Social History Tobacco Use Types Packs/Day Years Used Date Smoking Tobacco: Never Sex and Gender Information Value Date Recorded Sex Assigned at Not on file Gender Identity Not on file Sexual Orientation Not on file documented as of this encounter Medications at Time of Discharge Medication Sig Dispensed Refills Start Date End Date CHOLECALCIFEROL, VITAMIN D3, (VITAMIN D3 ORAL) Take [...] 500 mg Tablet, Chewable Take by mouth. Enalapril-Hydrochloroth iazide 5-12.5 mg Tab Take by mouth. 04/15 loratadine (CLARITIN) 10 mg tablet Take 10 mg by mouth daily. 03/15/2024 aspirin 81 mg EC tablet Take 81 mg by mouth twice a week. 04/05/2018 documented as of this encounter Plan of Treatment Not on file documented as of this encounter Procedures Procedure Name Priority Date/Time Associated Diagnosis Comments [facility] Rout[facility] 04/03/2012 10:36 AM EDT Pseudopseudo-hypop arathyroidism [facility] Routine 04/03/2012 1 0:36 AM EDT [facility] 04/03/2012 10:31 AM EDT Pseudopseudo-hypop arathyroidism documented in this encounter Results * [facility] (04/03/2012 10:36 AM EDT) [facility] ? [place] ?Expected Test ? Result ??LO ??Units ? Values Cyclic Amp, Urinary Excretion ??Creatinine, S ?0.7 ? mg/dL ? 0.6 - 1.1 ??Cyclic Amp, Urinary ?1.8 ? nmol/dL GF ?Excretion -- REFERENCE VALUE -- 1.3-3.7 nmol/dL of glomerular filtrate ??Creatinine, U ?31 ?mg/dL Test Performed by: [address] [address] Industrial Automation Specialist: Janak Reyes III, M.D. NESTOR MENENDEZ Blood specimen (specimen) 04/03/2012 10:36 AM EDT 04/03/2012 11:14 AM EDT Narrative Resulting Agency Comment Spec In Lab Tobi Perez III, MD LAB SEND OUT OR DERABLES Performing Organization Address [facility] Co de Phone Number NESTOR MENENDZE * Miscellaneous Lab request (04/03/2012 10:36 AM EDT) Label Request received in lab. NESTOR MENENDEZ Specimen of unknown material (specimen) 04/03/2012 10:36 AM EDT 04/03/2012 10:41 AM EDT Tobi Perez III, MD LAB SEND OUT OR DERABLES Performing Organization Address [facility] Co de Phone Number NESTOR MENENDEZ * Miscellaneous Lab request (04/03/2012 10:31 AM EDT) Label Request received in lab. 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
--- OUTSIDE RECORDS SUMMARY | 2024-08-15 11:56 | XMS_ITS | Encounter Summary ---
Author Organization [facility] Address [facility] [place] [address] Care Team Providers Care Student Name Role Phone Arabella Gambino APRN Primary Care Provider [phone] Encounter Details Date Type Department Care Team (Late st Contact Info) Description 10/24/2023 Telephone Dermatology at [facility] [address] [place] [address] Jose Fu MD [facility] [address] [place] [address] Social History Tobacco Use Types Packs/Day Years Used Date Smoking Tobacco: Never Smokeless Tobacco: Never Sex and Gender Information Value Date Recorded Sex Assigned at Not on file Gender Identity Not on file Sexual Orientation Not on file documented as of this encounter Miscellaneous Notes * Telephone Encounter - Billie Cho - 10/24/2023 4:02 PM EST Sent letter to Nguyen notifying pt Dr. Fu will not be in clinic on 11/17/23 & we are needing to reschedule her visit. documented in this encounter Plan of Treatment Not on file documented as of this encounter Visit Diagnoses Not on filedocumented in this encounter Care Teams Student Relationship Specialty Start Date End Date Arabella Gambino APRN [address] [place], [place] [id number] PCP - General Family Medicine 02/03/18 documented as of this encounter
--- OUTSIDE RECORDS SUMMARY | 2024-08-15 11:56 | XMS_ITS | Encounter Summary ---
Author Organization [facility] [place] [address] Care Team Providers Care Drywall Installer Name Role Phone Arabella Gambino APRN Primary Care Provider [phone] Encounter Details Date Type Department Care Team (Late st Contact Info) Description 11/11/2019 Notes Only Hematology [place] [address] Patel Small MD [facility] DR HEMATOLOGY/[place] [address] Social History Tobacco Use Types Packs/Day Years Used Date Smoking Tobacco: Never Smokeless Tobacco: Never Sex and Gender Information Value Date Recorded Sex Assigned at Not on file Gender Identity Not on file Sexual Orientation Not on file documented as of this encounter Progress Notes * Patel Small MD - 11/11/2019 10:58 AM EDT I have reviewed the patient's record and given personal and/or family history of cancer she should be seen by genetic counselor. This is scheduled for the coming week. documented in this encounter Plan of Treatment Not on file documented as of this encounter Visit Diagnoses Not on filedocumented in this encounter Care Teams Drywall Installer Relationship Specialty Start Date End Date Arabella Gambino APRN [address] [place], [place] [id number] PCP - General Family Medicine 02/03/18 documented as of this encounter
--- OUTSIDE RECORDS SUMMARY | 2024-08-15 11:56 | XMS_ITS | Encounter Summary ---
Author Organization [facility] Address [facility] [place] [address] Care Team Providers Care Artist'S Manager Name Role Phone Billie Amaro SINTERING PRESS OPERATOR Primary Care Provider [phone] Reason for Visit * Reason Comments Skin Check skin exam Encounter Details Date Type Department Care Team (Late st Contact Info) Description 07/26/2013 2:00 PM EST Office Visit Dermatology at [facility] [address] [place] [address] CLINIC, Francisco Moura MD [facility] [place] [address] SK (seborrheic keratosis) (Primary Dx); Boudreaux angioma; Tinea; Eczema Discharge Disposition: Home Social History Tobacco Use Types Packs/Day Years Used Date Smoking Tobacco: Never Sex and Gender Information Value Date Recorded Sex Assigned at Not on file Gender Identity Not on file Sexual Orientation Not on file documented as of this encounter Progress Notes * Francisco Fitzgerald MD - 07/26/2013 1:46 PM EST DERMATOLOGY - NEW PATIENT NOTE Date of service: 07/26/2013 Nguyen Brown : 1950 Chief Complaint Patient presents with ??? Skin Check skin exam HPI: Ms. Nguyen Brown is a 62 y.o. female. This is a new patient to me. Seen in consultation at the request of Suzan Ivan specifically for the evaluation and management of the a pigmented lesion/mole examination. Presents to clinic today for a full skin examination. She states she has several raised rough patches located on the upper chest and right lateral back. They are not bothersome but would like these evaluated. Also noted, her left foot is itchy. Her symptoms began this past summer with a small red patch that proceeded to spread. She used topical hydrocortisone in this area with no results. Past Skin History: Benign moles Medical History: There is no problem list on file for this patient. Medications: Current Outpatient Prescriptions on File Prior to Visit Medication Sig Dispense Refill ??? CHOLECALCIFEROL, VITAMIN D3, (VITAMIN D3 ORAL) Take 50,000 Units by mouth every other day. ??? Enalapril-Hydrochlorothiazide 5-12.5 mg Tab Take by mouth. ??? eszopiclone (LUNESTA) 2 mg Tab Take 2 mg by mouth every evening. ??? ESTRADIOL (ESTRACE VAGL) Place vaginally twice a week. ??? loratadine (CLARITIN) 10 mg tablet Take 10 mg by mouth daily. ??? CA CITRATE/MGOX/VIT D3/B6/MIN (CITRACAL PLUS ORAL) Take by mouth. ??? CINNAMON BARK (CINNAMON ORAL) Take by mouth. ??? Starbuck-3 Fatty Acids-Vitamin E (FISH OIL) 1,000 mg Cap Take by mouth. ??? MULTI-VITAMIN ORAL Take by mouth. ??? Cranberry 500 mg Cap Take by mouth. ??? Ascorbic Acid (VITAMIN C) 500 mg Chew Take by mouth. ??? aspirin 81 mg EC tablet Take 81 mg by mouth twice a week. Allergies: Allergies Allergen Reactions ??? 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 Skin: A full skin examination was performed. This includes the head, neck, face and scalp includingbehind the ears. The chest, abdomen, back, and axillae, as well as the arms, hands, palms, fingers.Legs, feet, toes and soles were also examined. Buttocks and breasts were also examined with patientconsent. Genitalia were not examined Specific skin findings: 1. Multiple 0.4-1 cm, brown-black papules/plaques with waxy stuck on appearance located on lateral back, left eye lid and chest area. 2. Multiple 0.2-0.4cm bright red, well-demarcated papules located on the back and trunk area 3. Small scaly annular plaque located on left dorsum foot and plantar. Small vesicles on the plantar surface Diagnosis/Assessment/Treatment Plan: 1. seborrheic keratosis Patient reassured. Advised to monitor and observe skin for changes. Call if such occurs 2. Boudreaux Angioma(s) Patient reassured. No treatment needed today 3. Dyshidrotic eczema/tinea I discussed this condition with the patient and explored therapeutic options. I recommended she apply econazole cream twice daily Mon-Tue and clobteasol cream on Sat/Sun. This will treat both the likely tinea on the dorsal foot and the dyshidrotic eczema on her sole. Continue treatment for 1 month. Follow-up appointment in 6 weeks, made at time of exit. She will cancel the appointment if her rashresolves. Scribed for Dr. Fitzgerald by Amol Marroquin MD and Terri Bell LPN. Calvin Fitzgerald MD Section of Dermatology [facility] documented in this encounter Plan of Treatment Not on file documented as of this encounter Visit Diagnoses Diagnosis SK (seborrheic keratosis)- Primary Other seborrheic keratosis Boudreaux angioma Nevus, non-neoplastic Tinea Dermatophytosis of unspecified site Eczema Contact dermatitis and other eczema, due to unspecified cause documented in this encounter Care Teams Artist'S Manager Relationship Specialty Start Date End Date Billie Amaro APRN [address] [place], [place] [address] [address] PCP - General 02/04/12 02/02/18 documented as of this encounter
--- OUTSIDE RECORDS SUMMARY | 2024-08-15 11:56 | XMS_ITS | Encounter Summary ---
[place] [address] Care Team Providers Care Job Developer For Deaf Adults Name Role Phone Arabella Gambino APRN Primary Care Provider Encounter Details Date Type Department Care Team (Latest Contact Info) Description 09/16/2022 Travel Social History Tobacco Use Types Packs/Day [...] on filedocumented in this encounter Care Teams Job Developer For Deaf Adults Relationship Specialty Start Date End Date Arabella Gambino APRN [address] [place] [address] PCP - General Family Medicine 02/03/18 documented as of this encounter
[2024-08-15 14:47] LABS: HCT 37.9 % (36.0-46.0); HGB 12.9 g/dL (11.2-15.7); MCH 31.9 pg (27.0-33.0); MCV 94 fL (80-95); MPV 8.9 fL (8.0-11.0); Platelet Count 355 10^3/uL (130-400); RBC 4.05 10^6/uL (3.93-5.22); RDW 12.1 % (11.7-14.6); RDW-SD 41.9 fL; WBC 4.95 10^3/uL (4.4-10.8)
[2024-08-15 15:16] LABS: Anion Gap 9.2 mmol/L (3-11); BUN 15 mg/dL (7-18); CO2 26.8 mmol/L (21.0-32.0); CREATININE 0.8 mg/dL (0.55-1.02); Calcium 9.4 mg/dL (8.5-10.1); Calculated LDL 104 mg/dL (<100); Chloride 101 mmol/L (98-107); Cholesterol 217 mg/dL (<200); Estimated GFR 76.79 (mL/min/1.73m2); Glucose 98 mg/dL (74-106); HDL Cholesterol 92 mg/dL (40-60); Potassium 4.3 mmol/L (3.5-5.1); Sodium 137 mmol/L (136-145); Triglyceride 106 mg/dL (<150)
== END 2024-08-15 11:54 | disposition home or self-care (01) ==
LOC: NCHCN 11:53
PROVIDERS: PCP Physician Assistant; Visit Provider Physician Assistant
DX: I10 Essential (primary) hypertension (principal)
CPT/HCPCS: 80048; 80061; 85027

== ENCOUNTER 2024-10-17 02:12 | Outpatient (CLI) | payer OTHER, SELFPAY ==
--- NOTE | 2024-10-17 | DI.MAMMO_ITS ---
Exam(s) MAMMO SCREENING EXAM: MAMMO SCREENING CLINICAL HISTORY: SCREENING, Z12.31. TECHNIQUE: Bilateral full field digital CC and MLO mammographic images were obtained with 3D tomosyn thesis and utilizing computer aided detection (CAD). COMPARISON: Prior mammograms were reviewed. FINDINGS: There has been no significant change in the appearance and distribution of the fibroglandular tissue. There are no new spiculated masses nor malignant appearing microcalcification groups. There is no significant architectural distortion nor skin thickening-retraction. IMPRESSION: No radiographic evidence of malignancy. BI-RADS Category 1 - Negative Breast Density - Category B - Scattered areas of fibroglandular density Breast density Category C or D implies that the patient has dense breast tissue. Dense breast tissue can make it harder to find cancer on a mammogram. Dense breast tissue is also associated with an incr eased risk of breast cancer. This information about the result of the mammogram report was provided to the patient to raise their awareness. Use this report when you speak with the patient about their risks for breast cancer, which includes their family history. At that time, you may recommend additional screening tests (Ultrasoun d or MRI) as these tests may add significant information. A negative radiographic report should not delay biopsy if a dominant or clinically suspicious mass is present. Up to ten percent of cancers are not identified on mammography. A negative report may reinforce clinical impression. Adenosis and dense breasts may obscure an underlying neoplasm. False positive reports average 6 to 10%. Patient will receive a letter notifying them of these results.
== END 2024-10-17 02:32 ==
LOC: DI 02:12
PROVIDERS: PCP Physician Assistant; Visit Provider Physician Assistant
DX: Z12.31 Encounter for screening mammogram for malignant neoplasm of breast (principal); R92.323 Mammographic fibroglandular density, bilateral breasts
CPT/HCPCS: 77063; 77067